=== PATIENT | female | born 1930 | race Caucasian/White ===

== ENCOUNTER 2016-09-29 12:01 | Inpatient (IN) | payer OTHER ==
[2016-09-29] VITALS (11 sets, daily range): BP systolic 111–164; BP diastolic 62–101
[~2016-09-29] VITALS: Ht 157.5 cm; Wt 70.8 kg
--- NOTE | 2016-09-29 11:50 | NUR ---
RECEIVED PT BIB EMS PLACED ON CARESCAPE ON A/C 12 VT 450 PEE5 FIO2 30 ALARMS ARE ON AND FUNCTIONAL BMV HOB PTS TRACH PORTEX 7 IS SECURE PT IN HF QUIET BS CONNER NIGHT CLEANER OBTAINED LG CREAMY VENT PLUGGED INTO RED OUTLET BEDSIDE
--- NOTE | 2016-09-29 12:01 | NUR ---
Patient was BIBA and taken to bed 03 via gurney per EMS.
[2016-09-29] MEDS ORDERED: IPRATROPIUM 0.02% 0.5 MG/2.5 ML NEBU INH ONE (12:10)
[2016-09-29] MEDS ORDERED: ALBUTEROL 0.083% 2.5 MG/3 ML NEBU INH ONE (12:10)
--- NOTE | 2016-09-29 12:10 | NUR ---
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 ER MD MADE AWARE OF PT STATUS.
[2016-09-29] MEDS ORDERED: NACL 0.9% 1,000 ML IV SCH (12:11)
--- NOTE | 2016-09-29 12:14 | NUR ---
Dr. Painter evaluating patient at bedside.
[2016-09-29 12:16] LABS: BLOOD GAS BASE EXCESS 3.2 mmol/L (-2.0-2.0); BLOOD GAS HCO3 26.7 mmol/L; BLOOD GAS PCO2 36.2 mmHg (20-50); BLOOD GAS PH 7.486 (7.35-7.45); BLOOD GAS PO2 128.1 mmHg
[2016-09-29 12:17] LABS: BLOOD GAS O2 SAT% 98.3 % (92.0-98.5)
[2016-09-29] MEDS ORDERED: AMLO-27 PO (12:17)
[2016-09-29] MEDS ORDERED: SYN.075 GT (12:17)
[2016-09-29] MEDS ORDERED: AMIO100T3 GT (12:17)
[2016-09-29] MEDS ORDERED: CAR30 GT (12:17)
[2016-09-29] MEDS ORDERED: ATOR20TA40 GT (12:17)
[2016-09-29] MEDS ORDERED: METO25TA3 GT (12:17)
[2016-09-29] MEDS ORDERED: LOV30I SC (12:17)
[2016-09-29] MEDS ORDERED: NITR0.4S14 TD (12:17)
--- NOTE | 2016-09-29 12:30 | NUR ---
XRAY AT BEDSIDE.
[2016-09-29 12:59] LABS: HEMATOCRIT 26.5 % (36-48); HEMOGLOBIN 8.5 g/dL (12.0-16.0); MEAN CORPUSCULAR HEMOGLOBIN 28 pg (27-31); MEAN CORPUSCULAR HGB CONC 32 g/dL (33-37); MEAN CORPUSCULAR VOLUME 87 fL (80-94); PLATELET COUNT (AUTO) 247 K/uL (140-450); RED BLOOD CELL COUNT(AUTO) 3.05 MIL/uL (4.20-5.40); RED CELL DISTRIBUTION WIDTH 16.1 % (11.6-13.7); WHITE BLOOD COUNT (AUTO) 9.9 K/uL (4.8-10.8)
--- NOTE | 2016-09-29 13:09 | NUR ---
INDWELLING CATH PLACED BY DILAN WINTERS WITH MARIO IGLESIAS'S ASSISTANCE
[2016-09-29 13:11] LABS: AMYLASE 55 U/L (25-115); ANION GAP 13.1 (8-16); CALCIUM 8.7 mg/dL (8.5-10.1); CHLORIDE 94 mmol/L (98-107); CREATININE 0.7 mg/dL (0.6-1.3); GLUCOSE 122 mg/dL (74-106); LIPASE 218 U/L (73-393); POTASSIUM 4.1 mmol/L (3.5-5.1); SODIUM SERUM 132 mmol/L (136-145); UREA NITROGEN, BLOOD 27 mg/dL (7-18)
[2016-09-29 13:14] LABS: ALANINE AMINOTRANSFERASE 20 U/L (12-78); ALBUMIN 2.5 g/dL (3.4-5.0); ALKALINE PHOSPHATASE 161 U/L (46-116); ASPARTATE AMINOTRANSFERASE 29 U/L (15-37); TOTAL BILIRUBIN 0.3 mg/dL (0.0-1.0)
[2016-09-29 13:15] LABS: INR 1.1 (0.8-1.2); PARTIAL THROMBOPLASTIN TIME 32.3 secs (22-35.6); PROTHROMBIN TIME 10.8 secs (10.8-13.4)
[2016-09-29 13:22] LABS: BAND % (MANUAL) 2 % (0-8); EOSINOPHILS % (MANUAL) 3 % (0-4); LYMPHOCYTES % (MANUAL) 18 % (20-46); MONOCYTES % (MANUAL) 5 % (5-12)
[2016-09-29 13:24] LABS: BASOPHILS % (MANUAL) 1 % (0-2); NEUTROPHILS % (MANUAL) 71 (43-65); PLATELET ESTIMATE ADEQUATE
--- NOTE | 2016-09-29 13:50 | NUR ---
SUCTIONED PATIENT WITH SMALL AMT.THICK WHITE SECRETION
[2016-09-29] MEDS ORDERED: ACETAMINOPHEN 325 MG TAB PO PRN (14:00)
[2016-09-29] MEDS ORDERED: ONDANSETRON 4 MG/2 ML VIAL IM/IVP PRN (14:00)
--- NOTE | 2016-09-29 14:00 | NUR ---
AT BEDSIDE TO SEE PT. WILL F/U WITH ORDERS. Addendum: 09/29/16 at 1742 by JulioC ésar Diamond RN DR FRAUSTO AT 1600
--- NOTE | 2016-09-29 14:21 | NUR ---
VENT CHECK BS RHONCI I\L LAVAGE AND SX MOD CREAMY DECREASE FIO2 TO 28
--- NOTE | 2016-09-29 14:45 | NUR ---
Patient will be admitted to care of JANAK. Admited to ICU. Will go to room 7. Belongings list completed. Report to DILAN BRIONES.
--- NOTE | 2016-09-29 15:00 | NUR ---
PT BROUGHT IT BY ER NURSE, EMT, AND RT. ALERT AND ORIENTED X 0. PT ALERT AND ORIENTED X 0. OPENS EYES TO PAIN. WITHDRAW FROM PAIN. UNABLE TO FOLLOW COMMANDS. TRACH TO VENT. FIO2 28%, 1C 12, TV 450, PEEP 5. R HAND 22 GAUGE NOTED. INTACT AND PATENT. SR ON MONITOR. LIMITED MOVEMENT OF BUE AND BLE. SKIN INTACT. G TUBE NOTED. RESIDUAL 40 CC MURKY BROWN PULLED OUT. DUKE CATHETER IN PLACE. DRAINING CLEAR YELLOW URINE. SAFETY AND ASPIRATION PRECAUTION MAINTAINED. WILL CONTINUE TO MONITOR
[2016-09-29 15:36] LABS: CHOL/HDL RATIO 2.3 (1-4.5); FREE T4 (FREE THYROXINE) 2.11 ng/dL (0.76-1.46); PHOSPHORUS 3.7 mg/dL (2.5-4.9); THYROID STIMULATING HORMONE 0.42 uIU/mL (0.34-3.76)
[2016-09-29] MEDS: NACL 0.9% 1,000 ML IV SCH (16:00)
[2016-09-29] MEDS ORDERED: POLYVINYL ALCOHOL 1.4% OP 15 ML SOL OP PRN (16:45)
[2016-09-29] MEDS ORDERED: NITROGLYCERIN 0.4 MG TAB SL PRN (16:45)
[2016-09-29] MEDS: CARBIDOPA/LEVODOPA 25/100 MG 1 TAB PO SCH (17:00)
[2016-09-29] MEDS ORDERED: AMIODARONE 200 MG TAB GT SCH (17:00)
--- NOTE | 2016-09-29 17:15 | NUR ---
DR. MARTINEZ AT BEDSIDE TO SEE PT. WILL F/U WITH ORDER
[2016-09-29] MEDS ORDERED: VANCOMYCIN PER PHARMACY MC PRN (17:35)
[2016-09-29] MEDS ORDERED: VANCOMYCIN 1GM/DEXT 5% PREMIX 200 ML IV ONE (18:15)
[2016-09-29] MEDS ORDERED: CLINDAMYCIN 600 MG/4 ML VIAL ONE ×2 (18:26→23:51)
[2016-09-29] MEDS: AMIODARONE 200 MG TAB GT SCH (18:26)
[2016-09-29] MEDS ORDERED: VANCOMYCIN 1,000 MG VIAL ONE (18:27)
[2016-09-29 18:40] LABS: APPEARANCE,URINE HAZY (CLEAR); BILIRUBIN,URINE NEGATIVE (NEGATIVE); BLOOD, URINE NEGATIVE (NEGATIVE); COLOR,URINE STRAW (YELLOW); LEUKOCYTE ESTERASE ,URINE 2+ (NEGATIVE); NITRITE, URINE NEGATIVE (NEGATIVE); PROTEIN,URINE NEGATIVE (NEGATIVE); UGLUCOSE NEGATIVE (NEGATIVE); UROBILINOGEN,URINE 0.2 EU/dL (0.2 - 1)
[2016-09-29] MEDS: CLINDAMYCIN 600 MG in DEXTROSE 5% 50 ML IV SCH (18:41)
[2016-09-29 19:14] LABS: BACTERIA,URINE FEW /HPF (None Seen); RBC,URINE NONE SEEN /HPF (0-5)
[2016-09-29 19:15] LABS: SQUAMOUS EPITHELIAL CELL,UR None Seen /LPF (0-3 (FEW))
--- NOTE | 2016-09-29 19:22 | NUR ---
PT RECEIVED FROM IMELDA ON NOTED VENT SETTINGS. PT QUIET, HAS A #7 [address]. BREATH SOUNDS DIMINISHED RHONCHI, PT LAVAGED AND SUCTIONED MOD AMT THICK CREAMY SECRETIONS. NO ADVERSE EFFECTS NOTED. VENT ALARMS ON AND AUDIBLE. VENT PLUGGED INTO RED ELECTRICAL OUTLET. AMBU BAG ON SIDE OF VENT.
[2016-09-29] MEDS ORDERED: ALBUTEROL SULFATE/IPRATROPIU 3 ML SOL IH PRN (19:25)
--- NOTE | 2016-09-29 19:30 | NUR ---
RECEIVED REPORT FROM SORAIDA KONG. PATIENT IS RESTING IN BED. PATIENT OPENS EYES SPONTANEOUSLY, BUT DOES NOT FOLLOW COMMANDS. PATIENT IS BEDBOUND. NO S/S OF RESPIRATORY DISTRESS OR SOB NOTED. PATIENT IS TRACH TO VENT WITH SETTINGS OF FIO2 28%, TIDAL VOLUME 450, A/C 12, PEEP 5. BREATH SOUNDS ARE DIMINISHED AND BOWEL SOUNDS ARE ACTIVE. THERE IS A G-TUBE IN PLACE AND CLAMPED. PATIENT IS NPO. THERE IS A #22 IN THE RIGHT HAND RECEIVING NORMAL SALINE AT 60 ML/HR. SITE IS DRY, INTACT, AND ASYMPTOMATIC. THERE IS A DUKE CATHETER IN PLACE DRAINING TO GRAVITY WITH MODERATE AMOUNT OF CLEAR YELLOW URINE NOTED. VAP ORAL CARE RENDERED. HOB AT 30 DEGREES WITH BED IN LOW POSITION. WILL CONTINUE TO MONITOR PATIENT.
--- NOTE | 2016-09-29 20:39 | NUR ---
AT BEDSIDE TO VISIT PATIENT.
--- NOTE | 2016-09-29 20:40 | NUR ---
PROSTHETIC LAB TECHNICIAN AT BEDSIDE FOR SCHEDULED PROCEDURE.
--- NOTE | 2016-09-29 21:31 | NUR ---
VENT CHECKED. PT QUIET, NO DISTRESS NOTED.
[2016-09-29] MEDS: FERROUS SULFATE 300 MG/5 ML UDC GT SCH (21:32)
[2016-09-29] MEDS: DOCUSATE 100 MG/10 ML UDC GT SCH (21:32)
[2016-09-29] MEDS: ATORVASTATIN 20 MG TAB GT SCH (21:33)
[2016-09-29] MEDS: MEMANTINE 10 MG TAB GT SCH (21:33)
[2016-09-29] MEDS: METOPROLOL 25 MG TAB GT SCH (21:33)
--- NOTE | 2016-09-29 21:47 | NUR ---
PATIENT TOLERATED SCHEDULED MEDICATIONS. NO SIGNS OF RESPIRATORY DISTRESS OR DISCOMFORT NOTED. PATIENT REPOSITIONED FOR COMFORT. VAP ORAL CARE PROVIDED. HOB AT 30 DEGREES WITH BED IN LOW POSITION. LEFT UNIT. WILL CONTINUE TO MONITOR PATIENT.
--- NOTE | 2016-09-29 23:19 | NUR ---
VENT CHECKED. PT GIVEN HHN TX INLINE ORDERED. BREATH SOUNDS RHONCHI, PT LAVAGED AND SUCTIONED MOD AMT CREAMY SECRETIONS. NO ADVERSE EFFECTS NOTED.
[2016-09-29] MEDS: ALBUTEROL SULFATE/IPRATROPIU 3 ML SOL IH SCH (23:24)
[2016-09-30] VITALS (24 sets, daily range): BP systolic 109–152; BP diastolic 51–94
--- NOTE | 2016-09-30 | NUR ---
PATIENT RESTING IN BED. NO SIGNS OF RESPIRATORY DISTRESS OR SOB NOTED. HOB AT 30 DEGREES WITH BED IN LOW POSITION. CONTINUE TO MONITOR PATIENT.
[2016-09-30] MEDS: CLINDAMYCIN 600 MG in DEXTROSE 5% 50 ML IV SCH ×5 (00:01→23:45)
--- NOTE | 2016-09-30 01:32 | NUR ---
VENT CHECKED. PT LAVAGED AND SUCTIONED SMALL AMT CREAMY SECRETIONS. NO ADVERSE EFFECTS NOTED.
--- NOTE | 2016-09-30 02:07 | NUR ---
PATIENT REPOSITIONED FOR COMFORT. NO SIGNS OF RESPIRATORY DISTRESS NOTED. HOB AT 30 DEGREES WITH BED IN LOW POSITION. CONTINUE TO MONITOR PATIENT.
--- NOTE | 2016-09-30 03:22 | NUR ---
VENT CHECKED. HME AND TRACH GAUZE CHANGED. PT GIVEN HHN TX VIA INLINE, LAVAGED AND SUCTIONED SMALL AMT CREAMY SECRETIONS. NO ADVERSE EFFECTS NOTED.
[2016-09-30] MEDS: ALBUTEROL SULFATE/IPRATROPIU 3 ML SOL IH SCH ×6 (03:27→23:04)
--- NOTE | 2016-09-30 03:28 | NUR ---
RESPIRATORY THERAPIST AT BEDSIDE FOR SCHEDULED BREATHING TREATMENT
--- NOTE | 2016-09-30 04:45 | NUR ---
MORNING AND CATHETER CARE PROVIDED. BED BATH GIVEN. CHANGED LINENS AND GOWN. REPOSITIONED TO OFFLOAD PRESSURE AREAS. VAP ORAL CARE RENDERED. NO SIGNS OF RESPIRATORY DISTRESS NOTED. HOB AT 30 DEGREES WITH BED IN LOW POSITION. WILL CONTINUE TO MONITOR PATIENT.
--- NOTE | 2016-09-30 05:31 | NUR ---
VENT CHECKED. PT QUIET, NO DISTRESS/SOB NOTED AT THIS TIME.
[2016-09-30] MEDS: LANSOPRAZOLE 30 MG CAPDR GT SCH (05:38)
[2016-09-30] MEDS: LEVOTHYROXINE 0.075 MG TAB GT SCH (05:38)
[2016-09-30 06:03] LABS: ANION GAP 10.9 (8-16); CALCIUM 8.4 mg/dL (8.5-10.1); CARBON DIOXIDE 28.8 mmol/L (21-32); CHLORIDE 98 mmol/L (98-107); CREATININE 0.7 mg/dL (0.6-1.3); GLUCOSE 116 mg/dL (74-106); POTASSIUM 3.7 mmol/L (3.5-5.1); SODIUM SERUM 134 mmol/L (136-145); UREA NITROGEN, BLOOD 17 mg/dL (7-18)
[2016-09-30 06:07] LABS: MAGNESIUM 1.9 mg/dL (1.8-2.4); PHOSPHORUS 3.2 mg/dL (2.5-4.9)
[2016-09-30 06:10] LABS: BASOPHILS % (AUTO) 0.4 % (0.0-2.0); EOSINOPHILS # (AUTO) 0.3 K/uL (0-0.4); HEMATOCRIT 29.4 % (36-48); HEMOGLOBIN 9.4 g/dL (12.0-16.0); LYMPHOCYTES % (AUTO) 10.8 % (20.5-51.1); MEAN CORPUSCULAR HEMOGLOBIN 28 pg (27-31); MEAN CORPUSCULAR HGB CONC 32 g/dL (33-37); MEAN CORPUSCULAR VOLUME 87 fL (80-94); MONOCYTES # (AUTO) 0.5 K/uL (0.8-1.0); MONOCYTES % (AUTO) 5.1 % (1.7-9.3); NEUTROPHILS # (AUTO) 7.8 K/uL (1.8-7.7); NEUTROPHILS % (AUTO) 80.7 % (42.2-75.2); PLATELET COUNT (AUTO) 234 K/uL (140-450); RED BLOOD CELL COUNT(AUTO) 3.38 MIL/uL (4.20-5.40); RED CELL DISTRIBUTION WIDTH 15.7 % (11.6-13.7); WHITE BLOOD COUNT (AUTO) 9.6 K/uL (4.8-10.8)
--- NOTE | 2016-09-30 06:30 | NUR ---
RECEIVED PT ON CARESCAPE ON A/C 12 VT 450 PEEP5 FIO2 28 ALARMS ARE ON AND FUNCTIONAL BMV HOB PTS TRACH PORTEX 7 IS SECURE PT IN HF QUIET BS RHONCI I\L LAVAGE AND SX LG CREAMY HHN GIVEN I\L WITH 3 MG DUONEB VENT PLUGGED INTO RED OUTLET
--- NOTE | 2016-09-30 06:32 | NUR ---
RESPIRATORY THERAPIST AT BEDSIDE.
[2016-09-30] MEDS: NACL 0.9% 1,000 ML IV SCH ×2 (06:37→15:01)
--- NOTE | 2016-09-30 07:12 | NUR ---
PATIENT IN STABLE CONDITION. ALL PATIENT'S NEEDS ATTENDED TO DURING SHIFT. ENDORSED CONTINUITY OF CARE TO LEI KONG.
--- NOTE | 2016-09-30 07:30 | NUR ---
RECEIVED REPORT FROM UMAIR KONG. PATIENT OPENS EYES SPONTANEOUSLY DOES NOT FOLLOW COMMANDS.BEDSIDE MONITOR SHOWS A-FIB. PATIENT IS BEDBOUND. PATIENT IS TRACH TO VENT WITH SETTINGS OF FIO2 28%, TIDAL VOLUME 450, A/C 12, PEEP 5. NO S/S OF RESPIRATORY DISTRESS OR SOB NOTED.BREATH SOUNDS ARE DIMINISHED . G-TUBE IN PLACE AND CLAMPED. IV TO RIGHT HAND # 22 RECEIVING NORMAL SALINE AT 60 ML/HR. SITE IS DRY, INTACT, AND ASYMPTOMATIC. DUKE CATHETER IN PLACE DRAINING TO GRAVITY WITH MODERATE AMOUNT OF CLEAR YELLOW URINE NOTED. VAP ORAL CARE GIVEN. HOB AT 30 DEGREES WITH BED IN LOW POSITION. WILL CONTINUE TO MONITOR PATIENT.
[2016-09-30] MEDS: MEMANTINE 10 MG TAB GT SCH ×2 (08:07→20:50)
[2016-09-30] MEDS: SODIUM BICARBONATE 650 MG TAB GT SCH (08:07)
[2016-09-30] MEDS: LACTOBACILLUS RHAMNOSUS GG 1 EACH CAP GT SCH (08:07)
[2016-09-30] MEDS: FERROUS SULFATE 300 MG/5 ML UDC GT SCH ×2 (08:07→20:49)
[2016-09-30] MEDS: DOCUSATE 100 MG/10 ML UDC GT SCH ×2 (08:07→20:49)
[2016-09-30] MEDS: DILTIAZEM 60 MG TAB GT SCH (08:08)
[2016-09-30] MEDS: METOPROLOL 25 MG TAB GT SCH ×2 (08:09→20:50)
[2016-09-30] MEDS: CARBIDOPA/LEVODOPA 25/100 MG 1 TAB PO SCH ×3 (08:10→17:01)
[2016-09-30] MEDS: amLODIPine 5 MG TAB GT SCH (08:10)
--- NOTE | 2016-09-30 08:46 | NUR ---
VENT CHECK BS RHONCI I\L LAVAGE AND SX LG CREAMY
--- NOTE | 2016-09-30 08:50 | NUR ---
IN TO ASSESS PT, UPDATED PT'S CONDITION. HAD COMMUNICATION WITH PT'S REGARDING PT'S CONDITION.
[2016-09-30] MEDS ORDERED: AMIODARONE 200 MG TAB GT SCH (09:00)
[2016-09-30] MEDS ORDERED: PNEUMOCOCCAL VACCINE 23 MCG/0.5 ML VIAL IMVAC SCH (10:05)
--- NOTE | 2016-09-30 10:15 | NUR ---
PT ABDOMEN SOFT, NO DISTENTION.G-TUBE PLACEMENT CHECKED AND WITHOUT RESIDUAL AT THIS TIME. STARTED PT ON FIBERSOURCE @ 30ML/HR WITH WATER FLUSH [id number] ORDERED. WILL CONTINUE TO MONITOR.
[2016-09-30] MEDS: VITAMIN A/VITAMIN D OINT 113 GM TUBE TP SCH (10:23)
[2016-09-30] MEDS ORDERED: FUROSEMIDE 20 MG/2 ML VIAL IVP SCH (10:30)
[2016-09-30] MEDS ORDERED: LISINOPRIL 5 MG TAB PO SCH (10:30)
--- NOTE | 2016-09-30 12:08 | NUR ---
VENT CHECK BS RHONCI I\L SX AND LAVAGE MOD CREAMY
--- NOTE | 2016-09-30 12:15 | NUR ---
IN TO ASSESS PT, UPDATED PT'S CONDITION, WILL FOLLOW UP.
[2016-09-30] MEDS ORDERED: PROBIOTIC SCREEN 1 EA MISC MC PRN (13:05)
--- NOTE | 2016-09-30 14:25 | NUR ---
TURNED AND REPOSITIONED PT, SUCTIONED PT WITH SMALLL AMOUNT OF CLEAR SECRETION. PT'S AT BEDSIDE.
--- NOTE | 2016-09-30 15:13 | NUR ---
VENT CHECK BS RHONCI I\L LAVAGE AND SX MOD CREAMY TRACH CARE I\L HHN GIVEN WITH 3 MG DUONEB
--- NOTE | 2016-09-30 16:49 | NUR ---
BEDSIDE MONITOR SHOWS A-FIB WITH INTERMITTENT SINUS RHYTHM WITH FIRST DEGREE BLOCK. PT OPENS EYES OCCASIONALLY, UNABLE TO FOLLOW COMMANDS, TRACH TO VENT, NO S/S OF RESPIRATORY DISTRESS NOTED. WILL CONTINUE TO MONITOR.
--- NOTE | 2016-09-30 16:55 | NUR ---
VENT CHECK BS RHONCI I\L LAVAGE AND SX SM YELLOW
[2016-09-30] MEDS: AMIODARONE 200 MG TAB GT SCH (17:02)
--- NOTE | 2016-09-30 18:20 | NUR ---
PT UNABLE TO FOLLOW COMMANDS. TRACH TO VENT.TURNED AND REPOSITIONED PT, NO S/S OF RESPIRATORY DISTRESS NOTED.
[2016-09-30] MEDS: VANCOMYCIN 750 MG in DEXTROSE 5% 250 ML IV SCH (18:28)
--- NOTE | 2016-09-30 19:35 | NUR ---
RECEIVED REPORT FROM LEI KONG. PATIENT IS RESTING IN BED. PATIENT OPENS EYES SPONTANEOUSLY, LOCALIZES TO PAIN, AND IS UNABLE TO FOLLOW SIMPLE COMMANDS. PATIENT IS TRACH TO VENT WITH SETTINGS OF FIO2 28%, TIDAL VOLUME 450, A/C 12, AND PEEP OF 5. BREATH SOUNDS ARE DIMINISHED ON AUSCULTATION. BOWEL SOUNDS ARE PRESENT. VITAL SIGNS ARE WNL AND PATIENT IS AFEBRILE. 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 PATIENT TOLERATING FEEDING FAIRLY WITH 30 ML OF RESIDUAL NOTED. THERE IS A #22 IN THE RIGHT HAND RECEIVING NORMAL SALINE AT 40 ML/HR. THERE IS A DUKE CATHETER IN PLACE DRAINING TO GRAVITY WITH MODERATE AMOUNT OF CLEAR YELLOW URINE NOTED. VAP ORAL CARE RENDERED. NO SIGNS OF RESPIRATORY DISTRESS NOTED. HOB AT 30 DEGREES WITH BED IN LOW POSITION. WILL CONTINUE TO MONITOR PATIENT.
--- NOTE | 2016-09-30 19:45 | NUR ---
RESPIRATORY THERAPIST AT BEDSIDE ADMINISTERING SCHEDULED BREATHING TREATMENT.
[2016-09-30] MEDS: ATORVASTATIN 20 MG TAB GT SCH (20:49)
--- NOTE | 2016-09-30 21:03 | NUR ---
PATIENT TOLERATED DUE MEDICATIONS. REPOSITIONED PATIENT TO OFFLOAD PRESSURE AREAS. NO SIGNS OF RESPIRATORY DISTRESS NOTED. HOB AT 30 DEGREES WITH BED IN LOW POSITION. WILL CONTINUE TO MONITOR PATIENT.
--- NOTE | 2016-09-30 22:21 | NUR ---
PATIENT'S AND DAUGHTER AT BEDSIDE.
--- NOTE | 2016-09-30 22:45 | NUR ---
PATIENT'S AND DAUGHTER OFF UNIT. PATIENT'S CONDITION REMAINS UNCHANGED. CONTINUE TO MONITOR.
--- NOTE | 2016-09-30 23:50 | NUR ---
VAP ORAL CARE RENDERED. NO SIGNS OF RESPIRATORY DISTRESS NOTED. CONTINUE TO MONITOR PATIENT.
[2016-10-01] VITALS (20 sets, daily range): BP systolic 113–152; BP diastolic 39–120
--- NOTE | 2016-10-01 00:30 | NUR ---
PATIENT REPOSITIONED FOR COMFORT. NO SIGNS OF RESPIRATORY DISTRESS NOTED. HOB AT 30 DEGREES WITH BED IN LOW POSITION. WILL CONTINUE TO MONITOR PATIENT.
--- NOTE | 2016-10-01 02:09 | NUR ---
SUCTIONED SMALL AMOUNT OF CREAMY SPUTUM. NO SIGNS OF SOB OR DISTRESS NOTED. HOB AT 30 DEGREES WITH BED IN LOW POSITION. CONTINUE TO MONITOR PATIENT.
[2016-10-01] MEDS: ALBUTEROL SULFATE/IPRATROPIU 3 ML SOL IH SCH ×6 (02:53→23:00)
--- NOTE | 2016-10-01 04:45 | NUR ---
MORNING AND CATHETER CARE RENDERED. BED BATH PROVIDED. CHANGED LINENS AND GOWN. PATIENT REPOSITIONED TO OFFLOAD PRESSURE AREAS. VAP ORAL CARE GIVEN. NO SIGNS OF RESPIRATORY DISTRESS. HOB AT 30 DEGREES WITH BED IN LOW POSITION. WILL CONTINUE TO MONITOR PATIENT.
[2016-10-01 04:52] LABS: HEMATOCRIT 26.2 % (36-48); HEMOGLOBIN 8.6 g/dL (12.0-16.0); MEAN CORPUSCULAR HEMOGLOBIN 29 pg (27-31); MEAN CORPUSCULAR HGB CONC 33 g/dL (33-37); MEAN CORPUSCULAR VOLUME 87 fL (80-94); PLATELET COUNT (AUTO) 238 K/uL (140-450); RED CELL DISTRIBUTION WIDTH 15.9 % (11.6-13.7); WHITE BLOOD COUNT (AUTO) 10.6 K/uL (4.8-10.8)
[2016-10-01 05:04] LABS: ANION GAP 12.8 (8-16); BAND % (MANUAL) 1 % (0-8); CALCIUM 8.1 mg/dL (8.5-10.1); CARBON DIOXIDE 28.7 mmol/L (21-32); CHLORIDE 96 mmol/L (98-107); CREATININE 0.8 mg/dL (0.6-1.3); EOSINOPHILS % (MANUAL) 4 % (0-4); GLUCOSE 138 mg/dL (74-106); LYMPHOCYTES % (MANUAL) 16 % (20-46); MONOCYTES % (MANUAL) 6 % (5-12); NEUTROPHILS % (MANUAL) 73 (43-65); POTASSIUM 4.5 mmol/L (3.5-5.1); SODIUM SERUM 133 mmol/L (136-145); UREA NITROGEN, BLOOD 15 mg/dL (7-18)
[2016-10-01 05:08] LABS: MAGNESIUM 1.8 mg/dL (1.8-2.4); PHOSPHORUS 3.6 mg/dL (2.5-4.9)
[2016-10-01] MEDS: CLINDAMYCIN 600 MG in DEXTROSE 5% 50 ML IV SCH ×2 (05:53→11:02)
[2016-10-01] MEDS: LANSOPRAZOLE 30 MG CAPDR GT SCH (05:53)
[2016-10-01] MEDS: LEVOTHYROXINE 0.075 MG TAB GT SCH (05:53)
--- NOTE | 2016-10-01 06:46 | NUR ---
REC'D PT ON CARESCAPE VENT SETTINGS AC12 VT 450 PEEP 5 FIO2 28% ALARMS ON AND FUNCTIONING PROPERLY, AMBU BAG IS AT SIDE OF VENTILATOR AND VENTILATOR IS PLUGGED INTO RED OUTLET, I\L TX GIVEN WITH DUONEB 3ML WITH NO ADVERSE REACTION POST TX, B\S ARE RHONCHI BILATERALLY, SXN PT SMALL AMT OF WHITE THIN SECRETIONS, PT IS TRACH WITH PORTEX 7 AND SKIN INTEGRITY IS INTACT PT IS RESTING WITH NO SIGNS OF DISTRESS NOTED AT THIS TIME
--- NOTE | 2016-10-01 07:10 | NUR ---
NO CHANGES IN PATIENT'S CONDITION. ALL PATIENT'S NEEDS ATTENDED TO DURING SHIFT. ENDORSED CONTINUITY OF CARE TO LEI KONG.
--- NOTE | 2016-10-01 07:30 | NUR ---
RECEIVED REPORT FROM UMAIR KONG. PATIENT OPENS EYES SPONTANEOUSLY DOES NOT FOLLOW COMMANDS.BEDSIDE MONITOR SHOWS SR AT THIS TIME. PATIENT IS BEDBOUND. FULL CODE. TRACH TO VENT WITH SETTINGS OF FIO2 28%, TIDAL VOLUME 450, A/C 12, PEEP 5. NO S/S OF RESPIRATORY DISTRESS OR SOB NOTED.BREATH SOUNDS ARE DIMINISHED . G-TUBE IN PLACE RUNNING FIBERSOURCE AT 30ML/HR WITH H2O FLUSH 150ML Q4HRS. IV TO RIGHT HAND # 22 RECEIVING NORMAL SALINE AT 40 ML/HR. SITE IS DRY, INTACT, AND ASYMPTOMATIC. DUKE CATHETER IN PLACE DRAINING TO GRAVITY WITH SMALL AMOUNT OF CLEAR YELLOW URINE NOTED. VAP ORAL CARE GIVEN. POC DISCUSSED WITH PT, PT UNABLE TO COMPREHEND. HOB AT 30 DEGREES WITH BED IN LOW POSITION. WILL CONTINUE TO MONITOR PATIENT.
[2016-10-01] MEDS: DOCUSATE 100 MG/10 ML UDC GT SCH ×2 (08:08→21:04)
[2016-10-01] MEDS: MEMANTINE 10 MG TAB GT SCH ×2 (08:08→21:04)
[2016-10-01] MEDS: FERROUS SULFATE 300 MG/5 ML UDC GT SCH ×2 (08:08→21:04)
[2016-10-01] MEDS: SODIUM BICARBONATE 650 MG TAB GT SCH (08:08)
[2016-10-01] MEDS: LACTOBACILLUS RHAMNOSUS GG 1 EACH CAP GT SCH (08:08)
[2016-10-01] MEDS: amLODIPine 5 MG TAB GT SCH (08:09)
[2016-10-01] MEDS: DILTIAZEM 60 MG TAB GT SCH (08:10)
[2016-10-01] MEDS: CARBIDOPA/LEVODOPA 25/100 MG 1 TAB PO SCH ×3 (08:10→16:44)
[2016-10-01] MEDS: METOPROLOL 25 MG TAB GT SCH ×2 (08:11→21:04)
[2016-10-01] MEDS: LISINOPRIL 5 MG TAB PO SCH (08:12)
[2016-10-01] MEDS: VITAMIN A/VITAMIN D OINT 113 GM TUBE TP SCH (08:41)
--- NOTE | 2016-10-01 08:45 | NUR ---
VENT CHECK, NO SNX REQUIRED AT THIS TIME, AIRWAY IS PATENT AND PT IS RESTING
[2016-10-01] MEDS ORDERED: FUROSEMIDE 20 MG/2 ML VIAL IVP SCH ×2 (09:00→09:44)
[2016-10-01 09:22] LABS: T4 (THYROXINE) 9.5 ug/dL (4.5-12.0)
[2016-10-01] MEDS ORDERED: VANCOMYCIN PER PHARMACY MC PRN (09:30)
--- NOTE | 2016-10-01 09:30 | NUR ---
IN TO ASSESS PT, UPDATED PT'S CONDITION. PER PT IS OK TO TRANSFER. PROJECT CONTROLLER AND CHARGE NURSE WERE NOTIFIED PT IS TELE STATUS.
--- NOTE | 2016-10-01 10:56 | NUR ---
PT HAS BEEN SCREENED AND CATEGORIZED HIGH NUTRITION RISK. PATIENT WILL BE SEEN WITHIN 1-2 DAYS OF ADMISSION. 09/30/16 - 10/01/16 TAMEKA OWEN MBA, RD
--- NOTE | 2016-10-01 11:02 | NUR ---
VENT CHECK, SXN PT SMALL AMT OF WHITE THIN SECRETIONS, B\S ARE RHONCHI I\L TX GIVEN WITH DUONEB 3ML WITH NO ADVERSE REACTION POST TX PT IS RESTING WITH NO SIGNS OF DISTRESS NOTED AT THIS TIME
--- NOTE | 2016-10-01 12:20 | NUR ---
DR KIM(RESIDENT) WAS NOTIFIED REGARDING PATIENTS POSITIVE BLOOD CULTURE FOR GRAM POSITIVE COCCI IN CLUSTERS AND POSITIVE URINE CULTURE AND TRACHEA CULTURE FOR PROTEUS MIRABILIS MODERATE-MDRO. DR KIM STATED HE WOULD LOOK INTO IT.
--- NOTE | 2016-10-01 13:11 | NUR ---
VENT CHECK, NO SXN REQUIRED AT THIS TIME, AIRWAY IS PATENT AND PT IS RESTING
--- NOTE | 2016-10-01 14:11 | NUR ---
10/01/16 RD INITIAL ASSESSMENT COMPLETED. PLEASE REFER TO NUTRITIN ASSESSMENT UNDER CARE ACTIVITY FOR ESTIMATED NUTRITIONAL NEEDS. RD RECOMMENDATIONS: 1- RECOMMEND INCREASE TF RATE BY 10MLS/HR Q8HRS TOLERATED TO REACH GOAL RATE OF FIBERSOURCE HN @60MLS/HR SUFFICIENT TO MEET >75% OF DAILY ESTIMATED NUTRITIONAL NEEDS. 2- F/U 2-3 DAYS; HIGH RISK. TAMEKA OWEN MBA, RD
--- NOTE | 2016-10-01 15:02 | NUR ---
VENT CHECK, I\L TX GIVEN WITH DUONEB 3ML WITH NO ADVERSE REACTION POST TX B\S ARE RHONCHI SXN PT MODERATE AMT OF THIN YELLOW SECRETIONS, TRACH CARE DONE: CHANGED TRACH TIE AND GAUZE AND INNER CANNULA AND AT BEDSIDE
--- NOTE | 2016-10-01 15:10 | NUR ---
RT AT BEDSIDE.
[2016-10-01] MEDS: AMIODARONE 200 MG TAB GT SCH (16:43)
--- NOTE | 2016-10-01 16:57 | NUR ---
VENT CHECK, NO SXN REQUIRED AT THIS TIME, AIRWAY IS PATENT PT IS RESTING
--- NOTE | 2016-10-01 17:49 | NUR ---
G-TUBE DRESSING CHANGED.
[2016-10-01] MEDS: VANCOMYCIN 750 MG in DEXTROSE 5% 250 ML IV SCH (18:13)
--- NOTE | 2016-10-01 18:20 | NUR ---
TURNED AND REPOSITIONED PT. NO S/S OF RESPIRATORY DISTRESS NOTED. SUCTIONED PT WITH SMALL AMOUNT OF CLEAR SECRETION, WILL CONTINUE TO MONITOR.
--- NOTE | 2016-10-01 19:30 | NUR ---
RECEIVED REPORT FROM DILAN ODOM. AT BEDSIDE, PATIENT IS AOX1, APHASIC, NOT ABLE TO FOLLOW COMMANDS. TRACH TO VENT WITH SETTINGS OF FIO2 28%, TIDAL VOLUME 450, A/C 12, PEEP 5. NO S/S OF SOB/ DISTRESS NOTED, DIMINISHED LUNG SOUNDS, SR ON FISHER PURSE SEINE WITH REGULAR HR, ABDOMEN SOFT WITH ACTIVE BOWEL SOUNDS, G-TUBE IN PLACE RUNNING FIBERSOURCE AT 60ML/HR WITH H2O FLUSH 150ML Q4HRS, TOLERATED WELL, 0ML RESIDUAL. IV TO RIGHT HAND 22GA SL, PATENT AND INTACT, IV SITE TO LEFT HAND 22GA RUNNING NS AT 20 ML/HR. DUKE CATHETER IN PLACE DRAINING TO GRAVITY WITH CLEAR YELLOW URINE NOTED. BEDBOUND, CONTRACTED TO ALL EXTREMITIES. AFEBRILE, SKIN IS INTACT, WARM AND DRY TO TOUCH. VSS, FLACC 0. ORAL CARE PROVIDED, POSITION CHANGED FOR OFF LOAD PRESSURE, SAFETY MEASURES IN PLACE, HOB AT 30 DEGREES, CALL LIGHT WITHIN REACH. WILL CONTINUE TO MONITOR.
--- NOTE | 2016-10-01 21:00 | NUR ---
SCHEDULED MEDICATION GIVEN, PT TOLERATED WELL.
[2016-10-01] MEDS: ATORVASTATIN 20 MG TAB GT SCH (21:04)
[2016-10-02] VITALS (18 sets, daily range): BP systolic 93–146; BP diastolic 40–89
--- NOTE | 2016-10-02 | NUR ---
NO CHANGE OF CONDITION AT THIS TIME, VSS. POSITION CHANGED FOR OFF LOAD PRESSURE.
[2016-10-02] MEDS: ALBUTEROL SULFATE/IPRATROPIU 3 ML SOL IH SCH ×6 (03:10→22:52)
--- NOTE | 2016-10-02 04:00 | NUR ---
AM CARE PROVIDED, ORAL CARE PROVIDED, PT TOLERATED WELL, POSITION CHANGED FOR OFF LOAD PRESSURE, VSS.
[2016-10-02 05:22] LABS: ANION GAP 11.5 (8-16); CALCIUM 8.2 mg/dL (8.5-10.1); CARBON DIOXIDE 30.5 mmol/L (21-32); CHLORIDE 93 mmol/L (98-107); CREATININE 0.8 mg/dL (0.6-1.3); GLUCOSE 156 mg/dL (74-106); SODIUM SERUM 131 mmol/L (136-145); UREA NITROGEN, BLOOD 16 mg/dL (7-18)
[2016-10-02] MEDS: NACL 0.9% 1,000 ML IV SCH (05:38)
[2016-10-02] MEDS: LEVOTHYROXINE 0.075 MG TAB GT SCH (06:02)
[2016-10-02] MEDS: LANSOPRAZOLE 30 MG CAPDR GT SCH (06:02)
[2016-10-02 06:21] LABS: HEMATOCRIT 26.9 % (36-48); HEMOGLOBIN 9.1 g/dL (12.0-16.0); MEAN CORPUSCULAR HEMOGLOBIN 29 pg (27-31); MEAN CORPUSCULAR HGB CONC 34 g/dL (33-37); MEAN CORPUSCULAR VOLUME 87 fL (80-94); PLATELET COUNT (AUTO) 268 K/uL (140-450); RED BLOOD CELL COUNT(AUTO) 3.09 MIL/uL (4.20-5.40); RED CELL DISTRIBUTION WIDTH 16.5 % (11.6-13.7); WHITE BLOOD COUNT (AUTO) 12.4 K/uL (4.8-10.8)
--- NOTE | 2016-10-02 06:34 | NUR ---
RECEIVED PT ON CARESCAPE ON A/C 12 VT 450 PEEP 5 FIO2 28 ALARMS ARE ON AND FUCNTIONAL BMV HOB PTS TRACH PORTEX 7 IS SECURE PT IN HF QUIET BS RHONCI I\L LAVAGE AND SX MOD CREAMY HHN GIVEN I\L WITH 3 MG DUONEB VENT PLUGGED INTO RED OUTLET NO DISTRESS
[2016-10-02 06:56] LABS: BAND % (MANUAL) 2 % (0-8); NEUTROPHILS % (MANUAL) 74 (43-65)
[2016-10-02 06:57] LABS: EOSINOPHILS % (MANUAL) 3 % (0-4); LYMPHOCYTES % (MANUAL) 14 % (20-46); MONOCYTES % (MANUAL) 7 % (5-12)
--- NOTE | 2016-10-02 07:15 | NUR ---
REPORT GIVEN TO DILAN FARNSWORTH AT BEDSIDE, PT IS IN STABLE CONDITION AT THIS TIME.
--- NOTE | 2016-10-02 07:47 | NUR ---
RECEIVE REPORT FROM DILAN HERNANDEZ. PT IS ALERT AND ORIENTED X 0. OPENS EYES TO PAIN. WITHDRAW FROM PAIN. UNABLE TO FOLLOW COMMANDS. TRACH TO VENT. FIO2 28%, AC 12, TV 450, PEEP 5. R HAND 22 GAUGE NOTED. SALINE LOCKED. LEFT HAND 20 GAUGE IV NOTED. INTACT AND PATENT. SR ON MONITOR. RIGIDNESS NOTED ON BUE AND BLE. SKIN INTACT. G TUBE NOTED. RESIDUAL [address] CC. DUKE CATHETER IN PLACE. DRAINING CLEAR YELLOW URINE. SAFETY AND ASPIRATION PRECAUTION MAINTAINED. WILL CONTINUE TO MONITOR.
[2016-10-02] MEDS: FUROSEMIDE 40 MG/4 ML VIAL IVP SCH (08:15)
--- NOTE | 2016-10-02 08:15 | NUR ---
BM NOTED. MODERATE AMOUNT OF HARD FORMED STOOL NOTED. DARK GREEN. NO ODOR NOTED. STOOL SOFTENER ADMINISTERED PER ORDER. WILL CONTINUE TO MONITOR
[2016-10-02] MEDS: FERROUS SULFATE 300 MG/5 ML UDC GT SCH ×2 (08:18→21:29)
[2016-10-02] MEDS: DOCUSATE 100 MG/10 ML UDC GT SCH ×2 (08:18→21:29)
[2016-10-02] MEDS: METOPROLOL 25 MG TAB GT SCH ×2 (08:19→21:30)
[2016-10-02] MEDS: DILTIAZEM 60 MG TAB GT SCH (08:19)
[2016-10-02] MEDS: MEMANTINE 10 MG TAB GT SCH ×2 (08:20→21:30)
[2016-10-02] MEDS: amLODIPine 5 MG TAB GT SCH (08:20)
[2016-10-02] MEDS: LACTOBACILLUS RHAMNOSUS GG 1 EACH CAP GT SCH (08:20)
[2016-10-02] MEDS: CARBIDOPA/LEVODOPA 25/100 MG 1 TAB PO SCH ×3 (08:21→16:36)
[2016-10-02] MEDS: LISINOPRIL 5 MG TAB PO SCH (08:21)
--- NOTE | 2016-10-02 08:30 | NUR ---
MEDICATION ADMINISTERED THROUGH G TUBE. PLACEMENT CHECKED. NO S/SX OF ACUTE DISTRESS NOTED. TOLERATED WELL
[2016-10-02] MEDS: VITAMIN A/VITAMIN D OINT 113 GM TUBE TP SCH (08:40)
--- NOTE | 2016-10-02 09:03 | NUR ---
VENT CHECK BS CL\DIM AIRWAY IS PATENT
--- NOTE | 2016-10-02 10:05 | NUR ---
DR. JIMENEZ AT BEDSIDE TO SEE PT. WILL F/U WITH ORDERS.
--- NOTE | 2016-10-02 10:56 | NUR ---
VENT CHECK BS RHONCI I\L LAVAGE AND SX SM CREAMY I\L HHN GIVEN WITH 3 MG DUONEB BEDSIDE
--- NOTE | 2016-10-02 11:21 | NUR ---
DR. ANN AT BEDSIDE TO SEE PT. WILL F/U WITH ORDERS
--- NOTE | 2016-10-02 12:08 | NUR ---
RECEIVED RESULTS OF KLEBSIELLA PNEUMONIAE AT [facility] SITE FROM LAB AT 1204. CALLED MD AND REPEAT RESULT TO MD AT 1208. NO FURTHER ORDERS OBTAINED. VERBALIZES RECEIVING RESULT
--- NOTE | 2016-10-02 13:06 | NUR ---
VENT CHECK BS DIMINISHED PT ASLEEP
--- NOTE | 2016-10-02 13:43 | NUR ---
DR. LICONA AT BEDSIDE TO SEE PT. WILL F/U WITH ORDERS
--- NOTE | 2016-10-02 15:11 | NUR ---
VENT CHECK BS RHONCI I\L LAVAGE AND SX MOD CREAMY I\L HHN GIVEN WITH 3 MG DUONEB
[2016-10-02 16:31] LABS: HEMOGLOBIN A1C 5.8 % (4.8-5.6)
[2016-10-02] MEDS: VANCOMYCIN 1GM/DEXT 5% PREMIX 200 ML IV SCH (16:36)
[2016-10-02] MEDS: AMIODARONE 200 MG TAB GT SCH (16:37)
--- NOTE | 2016-10-02 17:08 | NUR ---
VENT CHECK BS CL\DIM AIRWAY IS PATENT
--- NOTE | 2016-10-02 18:35 | NUR ---
DR. HODGSON AT BEDSIDE TO SEE PT. WILL F/U WITH NEW ORDERS.
--- NOTE | 2016-10-02 19:20 | NUR ---
RECEIVED REPORT FROM DILAN FARNSWORTH. AT BEDSIDE, PATIENT IS DROWSY, APHASIC, NOT ABLE TO FOLLOW COMMANDS. TRACH TO VENT WITH SETTINGS OF FIO2 28%, TIDAL VOLUME 450, A/C 12, PEEP 5. NO S/S OF SOB/ DISTRESS NOTED, CLEAR LUNG SOUNDS, SR ON MONOMER PURIFICATION OPERATOR WITH REGULAR HR, ABDOMEN SOFT WITH ACTIVE BOWEL SOUNDS, G-TUBE IN PLACE RUNNING FIBERSOURCE AT 60ML/HR WITH H2O FLUSH 150ML Q4HRS, TOLERATED WELL, 0ML RESIDUAL. IV TO RIGHT HAND 22GA SL, PATENT AND INTACT, IV SITE TO LEFT HAND 22GA RUNNING NS AT 20 ML/HR. DUKE CATHETER IN PLACE DRAINING TO GRAVITY WITH CLEAR YELLOW URINE NOTED. BEDBOUND, RIGID TO ALL EXTREMITIES. AFEBRILE, SKIN IS INTACT, WARM AND DRY TO TOUCH. VSS, FLACC 0. ORAL CARE PROVIDED, POSITION CHANGED FOR OFF LOAD PRESSURE, SAFETY MEASURES IN PLACE, HOB AT 30 DEGREES, CALL LIGHT WITHIN REACH. WILL CONTINUE TO MONITOR.
--- NOTE | 2016-10-02 19:42 | NUR ---
RECEIVED PT STABLE ON VENT SUPPORT AT DOCUMENTED SETTINGS, SXN'D SMALL THICK CLEAR SECRETIONS, HHN TX GIVEN, TOLERATED WELL, NO RESP DISTRESS OR SOB NOTED, 7 PORTEX TRACH PATENT/SECURE/MIDLINE, VENT PLUGGED INTO RED OUTLET, ALARMS SET AND AUDIBLE, BAG MASK AT BEDSIDE, WILL CONTINUE TO MONITOR.
[2016-10-02] MEDS: ATORVASTATIN 20 MG TAB GT SCH (21:30)
--- NOTE | 2016-10-02 21:30 | NUR ---
SCHEDULED MEDICATION GIVEN VIA GT, PT TOLERATED WELL
[2016-10-03] VITALS (18 sets, daily range): BP systolic 114–154; BP diastolic 40–96
--- NOTE | 2016-10-03 | NUR ---
NO CHANGE OF CONDITION AT THIS TIME, VSS, ORAL CARE PROVIDED, POSITION CHANGED FOR OFF LOAD PRESSURE.
[2016-10-03] MEDS: ALBUTEROL SULFATE/IPRATROPIU 3 ML SOL IH SCH ×6 (03:04→23:39)
--- NOTE | 2016-10-03 04:00 | NUR ---
AM CARE PROVIDED, ORAL CARE PROVIDED, PT TOLERATED WELL, POSITION CHANGED FOR OFF LOAD PRESSURE, VSS.
[2016-10-03 04:38] LABS: BASOPHILS % (AUTO) 0.1 % (0.0-2.0); EOSINOPHILS # (AUTO) 0.2 K/uL (0-0.4); EOSINOPHILS % (AUTO) 1.8 % (0.0-4.0); HEMATOCRIT 26.3 % (36-48); HEMOGLOBIN 8.4 g/dL (12.0-16.0); LYMPHOCYTES % (AUTO) 9.5 % (20.5-51.1); MEAN CORPUSCULAR HEMOGLOBIN 28 pg (27-31); MEAN CORPUSCULAR HGB CONC 32 g/dL (33-37); MEAN CORPUSCULAR VOLUME 87 fL (80-94); MONOCYTES # (AUTO) 0.4 K/uL (0.8-1.0); MONOCYTES % (AUTO) 3.9 % (1.7-9.3); NEUTROPHILS # (AUTO) 8.4 K/uL (1.8-7.7); NEUTROPHILS % (AUTO) 84.7 % (42.2-75.2); PLATELET COUNT (AUTO) 278 K/uL (140-450); RED BLOOD CELL COUNT(AUTO) 3.02 MIL/uL (4.20-5.40)
[2016-10-03] MEDS: LANSOPRAZOLE 30 MG CAPDR GT SCH (05:45)
[2016-10-03] MEDS: LEVOTHYROXINE 0.075 MG TAB GT SCH (05:45)
[2016-10-03] MEDS: NACL 0.9% 1,000 ML IV SCH (05:45)
[2016-10-03 06:02] LABS: CALCIUM 8.1 mg/dL (8.5-10.1); CARBON DIOXIDE 28.1 mmol/L (21-32); CHLORIDE 94 mmol/L (98-107); CREATININE 0.8 mg/dL (0.6-1.3); GLUCOSE 154 mg/dL (74-106); POTASSIUM 4.1 mmol/L (3.5-5.1); SODIUM SERUM 131 mmol/L (136-145); UREA NITROGEN, BLOOD 15 mg/dL (7-18)
--- NOTE | 2016-10-03 07:10 | NUR ---
REPORT GIVEN TO DILAN FARNSWORTH AT BEDSIDE, PT IS IN STABLE CONDITION AT THIS TIME.
--- NOTE | 2016-10-03 07:11 | NUR ---
RECIVED PT N VENT WITH SETTINGS CHARTED BREATHS SOUNDS PRESENT BILAT COARSE SXN PT WITH MIN AMT OFF WHITE SECS AMBU BAG AT BED SIDE TRACH PRESENT INPLACE PORTEX 7 VENT PLUGGED INTO RED OUTLET
--- NOTE | 2016-10-03 07:30 | NUR ---
RECEIVE REPORT FROM DILAN HERNANDEZ. PT IS ALERT AND ORIENTED X 0. OPENS EYES TO PAIN. WITHDRAW FROM PAIN. UNABLE TO FOLLOW COMMANDS. PERRL NOTED IN BILATERAL EYES. TRACH TO VENT. FIO2 28%, AC 12, TV 450, PEEP 5. R HAND 22 GAUGE NOTED. SALINE LOCKED. LEFT HAND 20 GAUGE IV NOTED. INTACT AND PATENT. SR ON MONITOR. RIGIDNESS NOTED ON BUE AND BLE. SKIN INTACT. G TUBE NOTED. RESIDUAL 10 CC. FLUSHING WELL. TOLERATING TUBE FEEDING. DUKE CATHETER IN PLACE. DRAINING CLEAR YELLOW URINE. SAFETY AND ASPIRATION PRECAUTION MAINTAINED. WILL CONTINUE TO MONITOR.
--- NOTE | 2016-10-03 08:30 | NUR ---
MEDICATION GIVEN THROUGH GTUBE. TOLERATED WELL. 0 RESIDUAL NOTED. WILL CONTINUE TO MONITOR.
--- NOTE | 2016-10-03 08:45 | NUR ---
DR. KIM AT BEDSIDE TO SEE PT. NOTIFIED DR. KIM OF [facility] RENEWAL. DR STATED HE WILL RENEW
[2016-10-03] MEDS: DOCUSATE 100 MG/10 ML UDC GT SCH ×2 (08:47→20:55)
[2016-10-03] MEDS: MEMANTINE 10 MG TAB GT SCH ×2 (08:48→20:55)
[2016-10-03] MEDS: LISINOPRIL 5 MG TAB PO SCH (08:48)
[2016-10-03] MEDS: FERROUS SULFATE 300 MG/5 ML UDC GT SCH ×2 (08:48→20:55)
[2016-10-03] MEDS: LACTOBACILLUS RHAMNOSUS GG 1 EACH CAP GT SCH (08:48)
[2016-10-03] MEDS: amLODIPine 5 MG TAB GT SCH (08:49)
[2016-10-03] MEDS: CARBIDOPA/LEVODOPA 25/100 MG 1 TAB PO SCH ×3 (08:49→16:12)
[2016-10-03] MEDS: DILTIAZEM 60 MG TAB GT SCH (08:49)
[2016-10-03] MEDS: FUROSEMIDE 40 MG/4 ML VIAL IVP SCH (08:50)
[2016-10-03] MEDS: METOPROLOL 25 MG TAB GT SCH ×2 (08:55→20:55)
[2016-10-03] MEDS: VITAMIN A/VITAMIN D OINT 113 GM TUBE TP SCH (08:57)
[2016-10-03 09:41] LABS: FOLIC ACID > 20.00 ng/mL (>3.0)
[2016-10-03 10:03] LABS: FERRITIN 391 ng/mL (15-150)
--- NOTE | 2016-10-03 10:04 | NUR ---
DR. JIMENEZ AT BEDSIDE TO SEE PT. WILL F/U WITH ANY ORDERS
[2016-10-03] MEDS ORDERED: VANCOMYCIN PER PHARMACY MC PRN (10:35)
--- NOTE | 2016-10-03 11:39 | NUR ---
NOTIFIED DR. KIM ABOUT SPUTUM CULTURE RESULT. DR. KIM STATED HE'LL LOOK AT RESULTS
--- NOTE | 2016-10-03 11:53 | NUR ---
DR. SKINNER AT BEDSIDE TO SEE PATIENT. WILL F/U WITH NEW ORDERS.
--- NOTE | 2016-10-03 13:45 | NUR ---
DR. HODGSON AT BEDSIDE TO SEE PT. WILL F/U WITH NEW ORDERS
[2016-10-03] MEDS: VANCOMYCIN 1GM/DEXT 5% PREMIX 200 ML IV SCH (15:34)
--- NOTE | 2016-10-03 16:49 | NUR ---
FAXED [facility] TO [facility].
--- NOTE | 2016-10-03 17:03 | NUR ---
CONTINUED TO MONITOR PT ON VENT WITH SETTINGS CHARTED BREATH SOUNDS PRESENT BILAT SCATTERD RHONCHI SEEMS TO CLEAR AFTER SXN SXN MIN AMT OFF WHITE SECS AMBU BAG AT BEDSIDE VENT PLUGGED INTO RED OUTLET
--- NOTE | 2016-10-03 18:30 | NUR ---
PT DESAT TO 75-78%. PULSE OX READJUSTED. PULSE OX REPLACED. INTERVENTIONS DID NOT CHANGE O2 SAT. WAVEFORM NORMAL BUT PTS LIPS APPEARS TO BE TURNING BLUE. RT NOTIFIED. FIO2 CHANGED TO 100%. PT SATURATION WENT UP TO 100%. PT RESTING IN BED. NO APPARENT S/SX OF DISTRESS NOTED.
--- NOTE | 2016-10-03 19:20 | NUR ---
REPORT GIVEN TO DILAN BLOCK. PT IS IN STABLE CONDITION.
--- NOTE | 2016-10-03 19:30 | NUR ---
RECEIVED REPORT FROM SORAIDA KONG. PATIENT IS RESTING IN BED. PATIENT IS TELEMETRY STATUS. PATIENT OPENS EYES SPONTANEOUSLY, BUT DOES NOT FOLLOW COMMANDS. PATIENT IS AFEBRILE AND VITAL SIGNS ARE WNL. FLACC 0. PATIENT IS BEDBOUND. PATIENT IS TRACH TO VENT WITH SETTINGS OF FIO2 80%, TIDAL VOLUME 450, A/C 12, AND PEEP OF 5. BREATH SOUNDS ARE COARSE ON AUSCULTATION. BOWEL SOUNDS ARE ACTIVE. THERE IS A G-TUBE PRESENT RECEIVING FIBERSOURCE AT 60 ML/HR. PATIENT TOLERATING G-TUBE FEEDING WELL WITH 5ML RESIDUAL NOTED. THERE IS A #22 IN THE RIGHT HAND SALINE LOCK. SITE IS DRY AND INTACT. THERE IS A #22 IN THE LEFT HAND RECEIVING NORMAL SALINE AT 20 ML/HR. SITE IS DRY, INTACT, AND ASYMPTOMATIC. THERE IS A DUKE CATHETER PRESENT WITH MODERATE AMOUNT OF CLEAR YELLOW URINE NOTED. VAP ORAL CARE RENDERED. NO SIGNS OF RESPIRATORY DISTRESS NOTED. HOB AT 30 DEGREES WITH BED IN LOW POSITION. WILL CONTINUE TO MONITOR PATIENT.
--- NOTE | 2016-10-03 20:35 | NUR ---
AT BEDSIDE. NO SIGNS OF RESPIRATORY DISTRESS OR SOB NOTED. CONTINUE TO MONITOR.
[2016-10-03] MEDS: ATORVASTATIN 20 MG TAB GT SCH (20:55)
--- NOTE | 2016-10-03 21:10 | NUR ---
PATIENT TOLERATED DUE MEDICATIONS. PATIENT REPOSITIONED FOR COMFORT. NO SIGNS OF RESPIRATORY DISTRESS NOTED. HOB AT 30 DEGREES WITH BED IN LOW POSITION. WILL CONTINUE TO MONITOR PATIENT.
--- NOTE | 2016-10-03 21:15 | NUR ---
LEFT THE UNIT. NO CHANGES IN PATIENT'S CONDITION. CONTINUE TO MONITOR.
--- NOTE | 2016-10-03 23:10 | NUR ---
PATIENT HAD MODERATE BM OF GREENISH PASTY STOOL. PERINEAL CARE PROVIDED. PATIENT REPOSITIONED FOR COMFORT. VAP ORAL CARE RENDERED. NO SIGNS OF RESPIRATORY DISTRESS NOTED. HOB AT 30 DEGREES WITH BED IN LOW POSITION. WILL CONTINUE TO MONITOR.
--- NOTE | 2016-10-03 23:53 | NUR ---
1830 PT SATS DROPPED TO 86%. PLACED PT ON 100% FIO2 WILL CONTINUE TO MONITOR
--- NOTE | 2016-10-03 23:54 | NUR ---
21OO DROPPED FI2 TO 80% SATS 100%
--- NOTE | 2016-10-03 23:55 | NUR ---
2330 DROPPED FIO2 TO 60%. PT SATS 100%
[2016-10-04] VITALS (18 sets, daily range): BP systolic 90–138; BP diastolic 47–69
--- NOTE | 2016-10-04 01:05 | NUR ---
PATIENT REPOSITIONED FOR COMFORT. NO SIGNS OF SOB NOTED. HOB AT 30 DEGREES WITH BED IN LOW POSITION. CONTINUE TO MONITOR PATIENT.
--- NOTE | 2016-10-04 01:38 | NUR ---
0138 LOWERED FIO2 TO 40%. SATS 100%
[2016-10-04] MEDS: ALBUTEROL SULFATE/IPRATROPIU 3 ML SOL IH SCH ×6 (03:24→22:47)
--- NOTE | 2016-10-04 03:50 | NUR ---
PATIENT HAD SMALL BM OF GREENISH STOOL. MORNING CARE, PERINEAL CARE, AND CATHETER CARE RENDERED. BED BATH PROVIDED. PATIENT REPOSITIONED FOR COMFORT. VAP ORAL CARE RENDERED. NO SIGNS OF RESPIRATORY DISTRESS NOTED. HOB AT 30 DEGREES WITH BED IN LOW POSITION. WILL CONTINUE TO MONITOR PATIENT.
--- NOTE | 2016-10-04 05:05 | NUR ---
WEAVING INSPECTOR AMELIA AT BEDSIDE FOR SCHEDULED MORNING LAB DRAWS.
[2016-10-04] MEDS: NACL 0.9% 1,000 ML IV SCH (05:31)
[2016-10-04 05:32] LABS: BASOPHILS % (AUTO) 0.1 % (0.0-2.0); EOSINOPHILS # (AUTO) 0.3 K/uL (0-0.4); EOSINOPHILS % (AUTO) 2.2 % (0.0-4.0); HEMATOCRIT 26.2 % (36-48); HEMOGLOBIN 8.7 g/dL (12.0-16.0); LYMPHOCYTES # (AUTO) 1.2 K/uL (2.5-16.5); LYMPHOCYTES % (AUTO) 8.8 % (20.5-51.1); MEAN CORPUSCULAR HEMOGLOBIN 29 pg (27-31); MEAN CORPUSCULAR HGB CONC 33 g/dL (33-37); MEAN CORPUSCULAR VOLUME 87 fL (80-94); MONOCYTES # (AUTO) 0.5 K/uL (0.8-1.0); MONOCYTES % (AUTO) 3.5 % (1.7-9.3); NEUTROPHILS # (AUTO) 11.7 K/uL (1.8-7.7); NEUTROPHILS % (AUTO) 85.4 % (42.2-75.2); PLATELET COUNT (AUTO) 291 K/uL (140-450); RED BLOOD CELL COUNT(AUTO) 3.02 MIL/uL (4.20-5.40); RED CELL DISTRIBUTION WIDTH 16.9 % (11.6-13.7)
[2016-10-04] MEDS: LANSOPRAZOLE 30 MG CAPDR GT SCH (05:32)
[2016-10-04] MEDS: LEVOTHYROXINE 0.075 MG TAB GT SCH (05:32)
[2016-10-04 06:04] LABS: ANION GAP 13.8 (8-16); CALCIUM 8.3 mg/dL (8.5-10.1); CARBON DIOXIDE 28.9 mmol/L (21-32); CHLORIDE 92 mmol/L (98-107); CREATININE 0.8 mg/dL (0.6-1.3); GLUCOSE 151 mg/dL (74-106); POTASSIUM 3.7 mmol/L (3.5-5.1); SODIUM SERUM 131 mmol/L (136-145); UREA NITROGEN, BLOOD 16 mg/dL (7-18)
[2016-10-04 06:14] LABS: MAGNESIUM 1.9 mg/dL (1.8-2.4); PHOSPHORUS 3.2 mg/dL (2.5-4.9)
[2016-10-04 06:24] LABS: WHITE BLOOD COUNT (AUTO) 13.7 K/uL (4.8-10.8)
--- NOTE | 2016-10-04 07:16 | NUR ---
RECIVED PT ON VENT WITH SETTINGS CHARTED BREATH SOUNDS PRESENT BILAT COARSE SXN PT WITH MOD AMT OFF WHITE SECS CHECKED TRACH AND TRACH TUBE PORTEX [address] AMBU BAG AT BEDSIDE VENT PLUGGED INTO RED OUTLET WILL CONTINUE TO MONITOR PT
--- NOTE | 2016-10-04 07:18 | NUR ---
NO SIGNS OF RESPIRATORY DISTRESS. ALL PATIENT'S NEEDS ATTENDED TO DURING SHIFT. ENDORSED CONTINUITY OF CARE TO LEI KONG.
--- NOTE | 2016-10-04 07:30 | NUR ---
RECEIVED REPORT FROM UMAIR KONG.PATIENT IS TELEMETRY STATUS. BEDSIDE MONITOR SHOWS A-FIB AT THIS TIME.FLACC 0. PATIENT IS BEDBOUND.PATIENT OPENS EYES SPONTANEOUSLY BUT DOES NOT FOLLOW COMMANDS. PATIENT IS TRACH TO VENT WITH SETTINGS OF FIO2 30%, TIDAL VOLUME 450, A/C 12, AND PEEP OF 5.NO SIGNS OF RESPIRATORY DISTRESS NOTED. BREATH SOUNDS ARE COARSE ON AUSCULTATION. BOWEL SOUNDS ARE ACTIVE. G-TUBE PRESENT RECEIVING FIBERSOURCE AT 60 ML/HR. RESIDUAL CHECKED 300ML, HOLD TUBE FEEDING. IV #22 TO RIGHT HAND SALINE LOCK. SITE IS DRY AND INTACT. IV #22 TO LEFT HAND RECEIVING NORMAL SALINE AT 20 ML/HR. SITE IS DRY, INTACT, AND ASYMPTOMATIC. DUKE CATHETER PRESENT WITH SMALL AMOUNT OF CLEAR YELLOW URINE NOTED. VAP ORAL CARE RENDERED. HOB AT 30 DEGREES WITH BED IN LOW POSITION. WILL CONTINUE TO MONITOR PATIENT.
[2016-10-04] MEDS: FERROUS SULFATE 300 MG/5 ML UDC GT SCH ×2 (08:20→20:32)
[2016-10-04] MEDS: DOCUSATE 100 MG/10 ML UDC GT SCH ×2 (08:21→20:32)
[2016-10-04] MEDS: CARBIDOPA/LEVODOPA 25/100 MG 1 TAB PO SCH ×3 (08:21→16:21)
[2016-10-04] MEDS: FUROSEMIDE 40 MG/4 ML VIAL IVP SCH (08:21)
[2016-10-04] MEDS: LACTOBACILLUS RHAMNOSUS GG 1 EACH CAP GT SCH (08:21)
[2016-10-04] MEDS: DILTIAZEM 60 MG TAB GT SCH ×2 (08:22→21:00)
[2016-10-04] MEDS: amLODIPine 5 MG TAB GT SCH (08:23)
[2016-10-04] MEDS: LISINOPRIL 5 MG TAB PO SCH (08:24)
[2016-10-04] MEDS: METOPROLOL 25 MG TAB GT SCH (08:24)
--- NOTE | 2016-10-04 09:00 | NUR ---
DUE MEDS GIVEN, PT TOLERATED WELL.
[2016-10-04] MEDS: MEMANTINE 10 MG TAB GT SCH ×2 (09:48→20:32)
[2016-10-04] MEDS: VITAMIN A/VITAMIN D OINT 113 GM TUBE TP SCH (09:49)
--- NOTE | 2016-10-04 10:08 | NUR ---
TURNED AND REPOSITIONED PT. RESIDUAL CHECKED 150ML. WILL STILL HOLD TUBE FEEDING.
--- NOTE | 2016-10-04 11:50 | NUR ---
RESIDUAL CHECKED 50 ML, RESTARTED PT ON TUBE FEEDING.
--- NOTE | 2016-10-04 12:20 | NUR ---
10/04/16 RD FOLLOW-UP ASSESSMENT COMPLETED PLEASE REFER TO NUTRITION ASSESSMENT UNDER CARE ACTIVITY FOR ESTIMATED NUTRITIONAL NEEDS. 1. RESUME TF FIBERSOURCE HN 1.2 JESICA TO START AT 30 ML/HR AND ADVANCE TOLERATED TO GOAL RATE OF 60 ML/HR CONTINUOUS (PROVIDES 1728 KCAL, 77 G PROTEIN, 1163 ML FREE WATER - MEETS 100% KCAL + 89% PROTEIN ESTIMATED NEEDS) 2. D/C WATER FLUSHES 3. RD TO FOLLOW-UP 2-3 DAYS; HIGH RISK HAILEY HAYWARD, LUIS
--- NOTE | 2016-10-04 13:50 | NUR ---
TURNED AND REPOSITIONED PT.ORAL CARE GIVEN. SUCTIONED PT WITH SMALL AMOUNT OF SECRETION. NO S/S OF RESPIRATORY DISTRESS NOTED.
[2016-10-04] MEDS: VANCOMYCIN 1GM/DEXT 5% PREMIX 200 ML IV SCH (16:21)
--- NOTE | 2016-10-04 16:25 | NUR ---
PT HAD SMALL AMOUNT OF GREENISH BROWN SOFT STOOL, CLEANED PT.
--- NOTE | 2016-10-04 17:00 | NUR ---
CONTINUEDTO MONITOR PT ON VENT WITH SETTINGS CHARTED BREATH SOUNDS PRESENT BILAT COARSE SXM PT WITH MIN AMT YELLOW SECSVENT PLUGGED INTO RED OUTLET AMBU BAG AT BEDSIDE
--- NOTE | 2016-10-04 18:15 | NUR ---
TURNED AND REPOSITIONED PT, NO S/S OF RESPIRATORY DISTRESS NOTED.
--- NOTE | 2016-10-04 19:09 | NUR ---
REPORT GIVEN TO ALBERTO KONG , VSS, NO S/S OF RESPIRATORY DISTRESS NOTED.
--- NOTE | 2016-10-04 19:10 | NUR ---
RECEIVED REPORT FROM DAY NURSE LEI, RN FOR TRANSFER OF CARE. PT OPENS EYES SPONTANEOUSLY BUT DOES NOT FOLLOW COMMANDS. PT IS TRACH TO VENT WITH CURRENT SETTINGS AT FI02 30%, VT 450, A/C 12, PEEP 5 WITH NO S/S OF ACUTE RESP DISTRESS NOTED AT THIS TIME. [employer] OFFICER SHOWS SR AT THIS TIME. PT HAS G-TUBE IN PLACE RUNNING FIBERSOURCE AT 60 ML/HR WITH 50ML GASTRIC RESIDUAL ASPIRATED AT THIS TIME.PT HAS LEFT HAND IV #22G RUNNING NORMAL SALINE AT 20 ML/HR AND RIGHT HAND #22G IV SALINE LOCKED, SITES ARE DRY, PATENT, INTACT. DUKE CATHETER IS PRESENT WITH SMALL AMOUNT OF CLEAR YELLOW URINE NOTED DRAINING VIA GRAVITY. HOB AT 30 DEGREES WITH BED IN LOW POSITION. NO S/S OF DISCOMFORT.WILL CONTINUE TO MONITOR PATIENT.
--- NOTE | 2016-10-04 19:27 | NUR ---
RCV'D PT ON VENTILATOR WITH TRACH PORTEX 7. SETTINGS ARE AC 12,450,30%,+5. VENT IS CONNECTED TO RED OUTLET. ALARMS ARE WORKING AND AUDIBLE. AMBU BAG AT BEDSIDE. PT IS AWAKE AND QUITE. SXN'D MOD AMT OF THICK YELLOW SECRETIONS.BS COARSE. HHN TX GIVEN. WILL CONTINUE TO MONITOR.
--- NOTE | 2016-10-04 20:11 | NUR ---
DR ZULETA HERE ON UNIT TO SEE PATIENT. WILL FOLLOW UP WITH ANY ORDERS.
[2016-10-04] MEDS: ATORVASTATIN 20 MG TAB GT SCH (20:32)
[2016-10-04] MEDS: METOPROLOL 50 MG TAB GT SCH (21:00)
--- NOTE | 2016-10-04 21:05 | NUR ---
PT RESTING IN BED NO SOB NOTED AT THIS TIME. FAMILY AT BEDSIDE. WILL CONTINUE TO CLOSELY MONITOR.
--- NOTE | 2016-10-04 23:10 | NUR ---
ABG DONE WITH NO INCIDENT. RESULTS ARE GIVEN TO DR JONES. NO CHANGES MADE. HHN TX GIVEN. VENT CHECK DONE. PT IS ASLEEP. WILL CONTINUE TO MONITOR.
[2016-10-04 23:43] LABS: BLOOD GAS PH 7.487 (7.35-7.45)
[2016-10-04 23:44] LABS: BLOOD GAS BASE EXCESS 1.5 mmol/L (-2.0-2.0); BLOOD GAS HCO3 24.7 mmol/L; BLOOD GAS O2 SAT% 98.1 % (92.0-98.5); BLOOD GAS PCO2 33.4 mmHg (20-50); BLOOD GAS PO2 115.2 mmHg
[2016-10-05] VITALS (13 sets, daily range): BP systolic 88–124; BP diastolic 47–78
--- NOTE | 2016-10-05 00:13 | NUR ---
PT RESTING IN BED. NO S/S OF ACUTE RESP DISTRESS NOTED AT THIS TIME. NO SIGNS OF DISCOMFORT AT THIS TIME. WILL CONTINUE TO CLOSELY MONITOR.
[2016-10-05] MEDS: ALBUTEROL SULFATE/IPRATROPIU 3 ML SOL IH SCH ×4 (02:22→14:52)
--- NOTE | 2016-10-05 02:26 | NUR ---
HHN TX GIVEN. VENT CHECK DONE. PT IS ASLEEP. NO SOB OR DISTRESS NOTES. WILL CONTINUE TO MONITOR.
--- NOTE | 2016-10-05 02:37 | NUR ---
NO RESTING IN BED. FLACC 0 AT THIS TIME. NO SOB NOTED. WILL CONTINUE TO CLOSELY MONITOR.
--- NOTE | 2016-10-05 05:00 | NUR ---
MORNING CARE RENDERED, VAP ORAL KIT PROVIDED. PT BATHED, LINEN CHANGED. FLACC 0 AT THIS TIME. NO SOB NOTED. WILL CONTINUE TO MONITOR.
--- NOTE | 2016-10-05 05:15 | NUR ---
VENT CHECK DONE. TRACH CARE DONE WITHOUT INCIDENT. CHANGED INNER CANNULA, GAUZE, WU; HME. PT IS AWAKE AND QUIET. PT'S SP2 IS 100%. BS COARSE. SXN'D SMALL AMT OF THICK YELLOW SECRETIONS.NO SOB OR DISTRESS NOTED. WILL CONTINUE TO MONITOR.
[2016-10-05] MEDS: LANSOPRAZOLE 30 MG CAPDR GT SCH (06:07)
[2016-10-05] MEDS: LEVOTHYROXINE 0.075 MG TAB GT SCH (06:07)
[2016-10-05] MEDS: NACL 0.9% 1,000 ML IV SCH (06:07)
[2016-10-05 06:35] LABS: BASOPHILS % (AUTO) 0.1 % (0.0-2.0); EOSINOPHILS # (AUTO) 0.4 K/uL (0-0.4); EOSINOPHILS % (AUTO) 2.7 % (0.0-4.0); HEMOGLOBIN 8.6 g/dL (12.0-16.0); LYMPHOCYTES # (AUTO) 1.1 K/uL (2.5-16.5); LYMPHOCYTES % (AUTO) 7.1 % (20.5-51.1); MEAN CORPUSCULAR HEMOGLOBIN 29 pg (27-31); MEAN CORPUSCULAR HGB CONC 33 g/dL (33-37); MEAN CORPUSCULAR VOLUME 87 fL (80-94); MONOCYTES # (AUTO) 0.6 K/uL (0.8-1.0); MONOCYTES % (AUTO) 3.9 % (1.7-9.3); NEUTROPHILS # (AUTO) 13.1 K/uL (1.8-7.7); NEUTROPHILS % (AUTO) 86.2 % (42.2-75.2); PLATELET COUNT (AUTO) 293 K/uL (140-450); RED BLOOD CELL COUNT(AUTO) 2.98 MIL/uL (4.20-5.40); RED CELL DISTRIBUTION WIDTH 16.9 % (11.6-13.7)
--- NOTE | 2016-10-05 06:36 | NUR ---
PT RESTING IN BED. NO SOB NOTED AT THIS TIME. CONTACT PRECAUTIONS STILL MAINTAINED, HOB UP, BED IN LOW POSITION. WILL CONTINUE TO CLOSELY MONITOR.
[2016-10-05 06:52] LABS: ANION GAP 11.7 (8-16); CALCIUM 8.3 mg/dL (8.5-10.1); CARBON DIOXIDE 29.1 mmol/L (21-32); CHLORIDE 92 mmol/L (98-107); CREATININE 0.8 mg/dL (0.6-1.3); GLUCOSE 181 mg/dL (74-106); POTASSIUM 3.8 mmol/L (3.5-5.1); SODIUM SERUM 129 mmol/L (136-145); UREA NITROGEN, BLOOD 20 mg/dL (7-18)
[2016-10-05 06:54] LABS: MAGNESIUM 1.9 mg/dL (1.8-2.4)
--- NOTE | 2016-10-05 07:10 | NUR ---
RECEIVED TRACH PT ON VENT EQUIPPED WITH A SIZE 7 PORTEX TRACH. VENT SETTINGS AC 12, VT 450, PEEP 5 AND FIO2 30%. PT IS AWAKE BUT NOT ALERT. B.S ARE COARSE BILATERALLY TO AUSCULTATION. PT SUCTIONED OBTAINED SMALL AMOUNT OF THICK YELLOW SECRETIONS,AIRWAY IS PATENT, TRACH IS SECURE. VENT ALARMS ARE ON AND FUNCTIONING WITH AMBU BAG PRESENT AT BEDSIDE. VENT IS PLUGGED INTO RED OUTLET. PT IS NOT SOB AND NOT IN RESPIRATORY DISTRESS AT THIS TIME. WILL CONTINUE TO MONITOR.
--- NOTE | 2016-10-05 07:10 | NUR ---
ENDORSED PLAN OF CARE TO DAY NURSES DILAN ODOM RN UGOCHI RN FOR TRANSFER OF CARE. PT STABLE AT THIS TIME.
--- NOTE | 2016-10-05 07:40 | NUR ---
RECEIVE REPORT FROM DILAN HERNANDEZ. PT IS ALERT AND ORIENTED X 0. OPENS EYES TO PAIN. WITHDRAW FROM PAIN. UNABLE TO FOLLOW COMMANDS. PERRL NOTED IN BILATERAL EYES. TRACH TO VENT. FIO2 230%, AC 12, TV 450, PEEP 5. R HAND 22 GAUGE NOTED. SALINE LOCKED. LEFT HAND 22 GAUGE IV NOTED. INTACT AND PATENT. SR ON MONITOR. RIGIDNESS NOTED ON BUE AND BLE. SKIN INTACT. G TUBE NOTED. MINIMAL RESIDUAL NOTED. FLUSHING WELL. TOLERATING TUBE FEEDING. DUKE CATHETER IN PLACE. DRAINING CLEAR YELLOW URINE. SAFETY AND ASPIRATION PRECAUTION MAINTAINED. WILL CONTINUE TO MONITOR. Addendum: 10/05/16 at 0742 by Julio César Diamond RN RECEIVED REPORT FROM DILAN DOMINGUEZ.
[2016-10-05 07:52] LABS: WHITE BLOOD COUNT (AUTO) 15.2 K/uL (4.8-10.8)
--- NOTE | 2016-10-05 08:30 | NUR ---
MEDICATION GIVEN THROUGH GTUBE. TOLERATED WELL.
[2016-10-05] MEDS: FUROSEMIDE 40 MG/4 ML VIAL IVP SCH (08:39)
[2016-10-05] MEDS: VITAMIN A/VITAMIN D OINT 113 GM TUBE TP SCH (08:39)
[2016-10-05] MEDS: DOCUSATE 100 MG/10 ML UDC GT SCH (08:46)
[2016-10-05] MEDS: LACTOBACILLUS RHAMNOSUS GG 1 EACH CAP GT SCH (08:46)
[2016-10-05] MEDS: FERROUS SULFATE 300 MG/5 ML UDC GT SCH (08:46)
[2016-10-05] MEDS: LISINOPRIL 5 MG TAB PO SCH (08:47)
[2016-10-05] MEDS: CARBIDOPA/LEVODOPA 25/100 MG 1 TAB PO SCH ×3 (08:47→17:06)
[2016-10-05] MEDS: METOPROLOL 50 MG TAB GT SCH (08:47)
[2016-10-05] MEDS: MEMANTINE 10 MG TAB GT SCH (08:48)
[2016-10-05] MEDS: DILTIAZEM 60 MG TAB GT SCH (08:48)
--- NOTE | 2016-10-05 10:00 | NUR ---
DR. JIMENEZ AT BEDSIDE TO SEE PT. WILL F/U WITH NEW ORDERS
[2016-10-05] MEDS ORDERED: MEROPENEM 500 MG in NACL 0.9% 50 ML IV SCH ×2 (10:22→21:00)
[2016-10-05] MEDS ORDERED: AD45 TP (10:36)
[2016-10-05] MEDS ORDERED: LACT10CA GT (10:36)
[2016-10-05] MEDS ORDERED: MEMA10TA GT (10:36)
[2016-10-05] MEDS ORDERED: SYN.075 GT (10:36)
[2016-10-05] MEDS ORDERED: IPRA3AMP IH (10:36)
[2016-10-05] MEDS ORDERED: COL100L GT (10:36)
[2016-10-05] MEDS ORDERED: ATOR20TA40 GT (10:36)
[2016-10-05] MEDS ORDERED: ONDA2SOL45 GT (10:36)
[2016-10-05] MEDS ORDERED: ARTOP OP (10:36)
[2016-10-05] MEDS ORDERED: HEPA500055 SUBQ (10:36)
[2016-10-05] MEDS ORDERED: NITR0.4T1 SL (10:36)
[2016-10-05] MEDS ORDERED: FER300L GT (10:36)
[2016-10-05] MEDS ORDERED: LANS30EC68 GT (10:36)
[2016-10-05] MEDS ORDERED: METO50TA99 GT (10:36)
[2016-10-05] MEDS ORDERED: DILT60TA94 GT (10:36)
[2016-10-05] MEDS ORDERED: LAS20I IVP (10:36)
[2016-10-05] MEDS ORDERED: ACET-1182 PO (10:36)
[2016-10-05] MEDS ORDERED: LISI-424 PO (10:36)
[2016-10-05] MEDS ORDERED: SIN25100 PO (10:36)
[2016-10-05] MEDS ORDERED: Miscellaneous MC (10:36)
--- NOTE | 2016-10-05 10:59 | NUR ---
NOTIFIED DR. HODGSON ABOUT BRADYCARDIA AFTER CARDIZEM ADMINISTRATION. NEW ORDERS RECEIVED. WILL CONTINUE TO MONITOR
--- NOTE | 2016-10-05 11:03 | NUR ---
PT SUCTIONED OBTAINED SMALL AMOUNT OF THICK CLEAR/WHITE SECRETIONS, AIRWAYS IS PATENT AND TRACH IS SECURE. WILL CONTINUE TO MONITOR.
--- NOTE | 2016-10-05 11:42 | NUR ---
DR. SKINNER AT BEDSIDE TO SEE PT. WILL F/U WITH ANY NEW ORDERS.
--- NOTE | 2016-10-05 11:45 | NUR ---
DR. ANN AT BEDSIDE TO SEE PT. WILL F/U WITH ANY NEW ORDERS
--- NOTE | 2016-10-05 12:00 | NUR ---
CM NOTE FAXED PATIENT INFORMATION AND NEW ORDERS TO [facility] [place] ATTN: MAHESH F: [phone]
[2016-10-05 12:48] LABS: TRANSFERRIN 166 mg/dL (200-370)
--- NOTE | 2016-10-05 13:01 | NUR ---
CM NOTE SPOKE WITH MAHESH OF [facility] [place] PH# [phone] AND SHE SAID PATIENT CAN GO TO [facility] [place] RM 26A AFTER 7:00PM TODAY. ICU NURSE ALIYAH MCMILLAN.
--- NOTE | 2016-10-05 13:21 | NUR ---
DR. JONES AT BEDSIDE TO SEE PT. WILL F/U WITH ANY NEW ORDERS.
[2016-10-05 13:56] LABS: BASOPHILS % (AUTO) 0.2 % (0.0-2.0); EOSINOPHILS # (AUTO) 0.5 K/uL (0-0.4); EOSINOPHILS % (AUTO) 3.4 % (0.0-4.0); HEMATOCRIT 25.3 % (36-48); HEMOGLOBIN 8.3 g/dL (12.0-16.0); LYMPHOCYTES # (AUTO) 1.2 K/uL (2.5-16.5); LYMPHOCYTES % (AUTO) 8.2 % (20.5-51.1); MEAN CORPUSCULAR HEMOGLOBIN 28 pg (27-31); MEAN CORPUSCULAR HGB CONC 33 g/dL (33-37); MEAN CORPUSCULAR VOLUME 86 fL (80-94); MONOCYTES # (AUTO) 0.7 K/uL (0.8-1.0); MONOCYTES % (AUTO) 4.4 % (1.7-9.3); NEUTROPHILS # (AUTO) 12.7 K/uL (1.8-7.7); NEUTROPHILS % (AUTO) 83.8 % (42.2-75.2); PLATELET COUNT (AUTO) 286 K/uL (140-450); RED BLOOD CELL COUNT(AUTO) 2.94 MIL/uL (4.20-5.40); RED CELL DISTRIBUTION WIDTH 16.5 % (11.6-13.7)
[2016-10-05 14:13] LABS: WHITE BLOOD COUNT (AUTO) 15.1 K/uL (4.8-10.8)
--- NOTE | 2016-10-05 14:59 | NUR ---
PT SUCTIONED OBTAINED MODERATE AMOUNT OF THICK PALE YELLOW SECRETIONS, AIRWAY IS PATENT AND TRACH IS SECURE. PT IS NOT SOB AND NOT IN RESPIRATORY DISTRESS. WILL CONTINUE TO MONITOR.
--- NOTE | 2016-10-05 16:03 | NUR ---
CALLED [facility] ,SPOKE TO PARKER RN REGARDING TRANSFER THE PATIENT BACK TO ROOM 26-A TODAY AND MADE HIM AWARE OF REPEAT WBC IS STILL HIGH 15.1. MR PARKER STATES THAT THE BED IS STILL AVAILABLE FOR THE PATIENT AFTER 1900 HR. NURSE ODOM WAS INFORMED.
--- NOTE | 2016-10-05 16:51 | NUR ---
CALLED [facility] [phone], SPOKE TO EHSAN REGARDING TRANSPORTATION. NOTIFIED PT VENTILATOR DEPENDENT , ECG MONITORING REQUIRED AND CONTACT ISOLATION . PER EHSAN, THE LATEST AVAILABLE SCHEDULE IS AFTER 2100, IF THEY WILL CHANGE THE SCHEDULE, THEY WILL GIVE US A CALL IN ADVANCE.
--- NOTE | 2016-10-05 17:33 | NUR ---
[facility] CONFIRM TRANSPORT TIME WILL BE AT 1900
--- NOTE | 2016-10-05 18:08 | NUR ---
REPORT GIVEN TO [facility] NURSE
--- NOTE | 2016-10-05 18:36 | NUR ---
NOTIFIED PT'S ERIN [phone] PT WILL BE TRANSFERRED TO [facility] [place] AT 1900.
--- NOTE | 2016-10-05 19:02 | NUR ---
RECEIVED REPORT FROM DAY NURSE LEI, RN FOR TRANSFER OF CARE. PT IS TRACH TO VENT WITH NO S/S OF ACUTE RESP DISTRESS NOTED AT THIS TIME. AWAITING FOR [facility] TO ARRIVE ON UNIT FOR [place] [facility] [place]EDSIDE. WILL CONTINUE TO CLOSELY MONITOR.
--- NOTE | 2016-10-05 19:03 | NUR ---
[facility] TEAM PRESENT AT UNIT.
--- NOTE | 2016-10-05 19:15 | NUR ---
[facility] TEAM ON UNIT.PREPARING PATIENT TOR BE READY FOR TRANSFER, REPORT IS CURRENTLY BEING GIVEN TO [facility] NURSE SHARLA ECHEVARRIA RN. PT IS CURRENTLY RESTING IN BED. NO S/S OF ACUTE RESP DISTRESS NOTED AT THIS TIME. NO SIGNS OF DISCOMFORT NOTED AT THIS TIME. WILL CONTINUE TO MONITOR. AT BEDSIDE.
--- NOTE | 2016-10-05 19:26 | NUR ---
REPORT GIVEN TO SHARLA ECHEVARRIA RN.
--- NOTE | 2016-10-05 20:13 | NUR ---
PATIENT DISCHARGED FROM ICU AT 2009 TRANSPORTED BY [facility] GOING TO [facility], PATIENT'S ERIN METCALF WITH THE PATIENT UPON DISCHARGE.
[2016-10-05] MEDS ORDERED: DILTIAZEM 30 MG TAB GT SCH (21:00)
== END 2016-10-05 20:10 | DRG 207 ==
LOC: MED 12:02 → MIC 13:57
PROVIDERS: ADMIT Family Medicine; ATTEND Family Medicine
PROC: 5A1955Z Respiratory Ventilation, Greater than 96 Consecutive Hours (ICD-10-PCS; principal; 2016-09-29)
DX: J95.02 Infection of tracheostomy stoma (principal); J69.0 Pneumonitis due to inhalation of food and vomit; G93.41 Metabolic encephalopathy; E43 Unspecified severe protein-calorie malnutrition; J96.21 Acute and chronic respiratory failure with hypoxia; N17.0 Acute kidney failure with tubular necrosis; J90 Pleural effusion, not elsewhere classified; N39.0 Urinary tract infection, site not specified; E87.1 Hypo-osmolality and hyponatremia; I42.2 Other hypertrophic cardiomyopathy; K94.22 Gastrostomy infection; Z99.11 Dependence on respirator [ventilator] status; I11.0 Hypertensive heart disease with heart failure; G20 Parkinson's disease; G30.9 Alzheimer's disease, unspecified; K80.20 Calculus of gallbladder without cholecystitis without obstruction; F02.80 Dementia in other diseases classified elsewhere, unspecified severity, without behavioral disturbance, psychotic disturbance, mood disturbance, and anxiety; R13.10 Dysphagia, unspecified; B96.1 Klebsiella pneumoniae [K. pneumoniae] as the cause of diseases classified elsewhere; B96.4 Proteus (mirabilis) (morganii) as the cause of diseases classified elsewhere; Z16.20 Resistance to unspecified antibiotic; D50.9 Iron deficiency anemia, unspecified; K21.9 Gastro-esophageal reflux disease without esophagitis; I48.0 Paroxysmal atrial fibrillation; E11.9 Type 2 diabetes mellitus without complications; I25.10 Atherosclerotic heart disease of native coronary artery without angina pectoris; I50.9 Heart failure, unspecified; E87.8 Other disorders of electrolyte and fluid balance, not elsewhere classified; E03.9 Hypothyroidism, unspecified; Z88.0 Allergy status to penicillin; Z88.2 Allergy status to sulfonamides; Z88.8 Allergy status to other drugs, medicaments and biological substances; Z79.899 Other long term (current) drug therapy; Z83.3 Family history of diabetes mellitus; Z68.28 Body mass index [BMI] 28.0-28.9, adult
CPT/HCPCS: 36415; 36600; 51702; 71010; 76604; 76700; 80048; 80053; 80202; 81001; 82150; 82553; 82607; 82728; 82746; 82803; 83036; 83540; 83690; 83735; 83880; 84100; 84436; 84439; 84443; 84479; 84484; 85025; 85045; 85379; 85610; 85730; 87040; 87070; 87081; 87086; 87186; 87205; 89220; 90732; 93005; 93970; 94003; 94640; 96360; 99285; J0696; J1644; J1940; J2185; J3370; J3490; J7030; J7060; J7613; J7620; J7644; Q0092

== ENCOUNTER 2017-10-28 16:23 | Inpatient (IN) | payer OTHER ==
[~2017-10-28] VITALS: Ht 160 cm; Wt 69.9 kg
--- NOTE | 2017-10-28 16:15 | NUR ---
PT BIBA FOR SOB PLACED ON [place]ESCAPE VENT SETTINGS AC12 VT 500 PEEP 5 FIO2 50% ALARMS ON AND AUDIBLE, AMBU BAG AT [facility], PT WAS SNX FOR C&S LARGE AMT OF THICK WHITE SECRETIONS, B\S DIMINISHED BILATERALLY, PT IS TRACH WITH PORTEX 7 AND SKIN INTEGRITY IS INTACT, AT BEDSIDE
[2017-10-28 16:20] VITALS: BP 167/76
[~2017-10-28 16:23] MED LIST: ACET-1182 PO; AD45 TP; AMLO-27 PO; ARTOP OP; ATOR20TA40 GT; CARB1TAB37 PO; COL100L GT; DILT60TA94 GT; FER300L GT; HEPA500056 SUBQ; IPRA3AMP IH; LACT10CA GT; LANS30EC68 GT; LAS20I IVP; LISI-424 PO; LOV30I SC; MEMA10TA GT; METO50TA99 GT; Miscellaneous MC; NITR0.4S14 TD; NITR0.4T1 SL; ONDA2SOL45 GT; SYN.075 GT
[2017-10-28] MEDS ORDERED: CALCIUM CHLORIDE 10% 100 MG/ML SYR IVP ONE ×2 (16:26→17:30)
[2017-10-28 16:28] VITALS: BP 98/58
--- NOTE | 2017-10-28 16:28 | NUR ---
87f biba with c/o bradycardia and hypotension. Per wooden shade hardware installer report, on scene heart rate to the 40's and blood pressure 80s/40s. Patient with trach-collar to vent. on arrival heart rate=60s. Patient pulse ox=98% to vent. Patient at neuro baseline per . gcs=10. Spontaneous eye opening and withdraws to pain. RR are tachypneic. Patient has gt with purulent discharge. No fever noted upon triage. Skin is dry/cool/intact. ER MD Gandara by bedside. Patient to cardiac/blood pressure/pulse ox/heart rate monitoring. Will continue to monitor.
[2017-10-28 17:42] LABS: BASOPHILS % (AUTO) 0.3 % (0.0-2.0); EOSINOPHILS # (AUTO) 0.1 K/uL (0-0.4); EOSINOPHILS % (AUTO) 0.9 % (0.0-4.0); HEMATOCRIT 32.6 % (36-48); LYMPHOCYTES # (AUTO) 1.5 K/uL (2.5-16.5); LYMPHOCYTES % (AUTO) 15.7 % (20.5-51.1); MEAN CORPUSCULAR HEMOGLOBIN 30 pg (27-31); MEAN CORPUSCULAR HGB CONC 34 g/dL (33-37); MEAN CORPUSCULAR VOLUME 88.4 fL (80-94); MONOCYTES # (AUTO) 0.7 K/uL (0.8-1.0); MONOCYTES % (AUTO) 7.3 % (1.7-9.3); NEUTROPHILS # (AUTO) 7.1 K/uL (1.8-7.7); NEUTROPHILS % (AUTO) 75.8 % (42.2-75.2); PLATELET COUNT (AUTO) 221 K/uL (140-450); RED BLOOD CELL COUNT(AUTO) 3.69 MIL/uL (4.20-5.40); RED CELL DISTRIBUTION WIDTH 16.2 % (11.6-13.7); WHITE BLOOD COUNT (AUTO) 9.3 K/uL (4.8-10.8)
[2017-10-28 17:48] LABS: ANION GAP 12.8 (8-16); CARBON DIOXIDE 28.5 mmol/L (21-32); CHLORIDE 94 mmol/L (98-107); CREATININE 1.1 mg/dL (0.6-1.3); GLUCOSE 125 mg/dL (74-106); POTASSIUM 4.3 mmol/L (3.5-5.1); SODIUM SERUM 131 mmol/L (136-145); UREA NITROGEN, BLOOD 56 mg/dL (7-18)
--- NOTE | 2017-10-28 17:53 | NUR ---
XRAY BY BEDSIDE
[2017-10-28 17:56] LABS: ASPARTATE AMINOTRANSFERASE 16 U/L (15-37); TOTAL BILIRUBIN 0.4 mg/dL (0.0-1.0)
[2017-10-28 18:17] LABS: PROTHROMBIN TIME 11.5 secs (10.8-13.4)
--- NOTE | 2017-10-28 18:32 | NUR ---
awaiting admission. by bedside. no acute distress. will continue to monitor.
[2017-10-28 18:38] VITALS: BP 161/102
[2017-10-28] MEDS ORDERED: NACL 0.9% 1,000 ML IV SCH (18:49)
[2017-10-28] MEDS ORDERED: ONDANSETRON 4 MG/2 ML VIAL IVP PRN (18:50)
[2017-10-28] MEDS ORDERED: HYDROcodone/APAP 7.5/325 MG 1 TAB PO PRN (18:50)
[2017-10-28] MEDS ORDERED: ACETAMINOPHEN 325 MG TAB PO PRN (18:50)
[2017-10-28 19:16] LABS: APPEARANCE,URINE SL CLOUDY (CLEAR); BILIRUBIN,URINE NEGATIVE (NEGATIVE); BLOOD, URINE TRACE-I (NEGATIVE); COLOR,URINE YELLOW (YELLOW); LEUKOCYTE ESTERASE ,URINE 3+ (NEGATIVE); NITRITE, URINE NEGATIVE (NEGATIVE); UGLUCOSE NEGATIVE (NEGATIVE)
--- NOTE | 2017-10-28 19:17 | NUR ---
PT ON BED DELAY DUE TO BED ASSIGNMENT FOR VENT PER NOTARY PUBLIC
--- NOTE | 2017-10-28 19:18 | NUR ---
Pt report given to Castro KONG. Transfer of care at this time.
--- NOTE | 2017-10-28 19:20 | NUR ---
RECEIVED REPORT FROM AM NURSE. PT RESTING IN BED COMFORTABLY. SPO2 98% ON VENT, RR 12 EVEN AND UNLABORED, BP 153/91, HR 118 ALL NEEDS MET AT THIS TIME.
[2017-10-28] MEDS ORDERED: ALBUTEROL SULFATE/IPRATROPIU 3 ML SOL IH PRN ×2 (19:25→20:05)
[2017-10-28 19:36] LABS: CHOL/HDL RATIO 2.1 (1-4.5); FREE T4 (FREE THYROXINE) 1.31 ng/dL (0.76-1.46); MAGNESIUM 2.1 mg/dL (1.8-2.4); PHOSPHORUS 4.7 mg/dL (2.5-4.9); THYROID STIMULATING HORMONE 1.88 uIU/mL (0.34-3.74)
[2017-10-28 19:38] LABS: RBC,URINE 3-10 (FEW) /HPF (0-5); WBC,URINE TOO MANY TO COUNT /HPF (0-5)
[2017-10-28] MEDS ORDERED: amLODIPine 5 MG TAB PO SCH (20:00)
[2017-10-28 20:40] VITALS: BP 135/62
--- NOTE | 2017-10-28 20:40 | NUR ---
PT ARRIVED AT UNIT VIA GURNEY, TRANSFERRED PT TO BED, PT TOLERATED WELL, REPORT RECEIVED FROM ER NURSE YVAN RN, PT STABLE, IV TO L FA 20G SL, PATENT INTACT, PT ON VENT, DUKE IN PLACE DRAINING YELLOW, CLOUDY URINE, GTUBE IN PLACE, PATENT, INTACT. MRSA SWAB TAKEN, PT AT BEDSIDE, CALL LIGHT WITHIN REACH, INITIAL ASSESSMENT DONE, ALL SAFETY PRECAUTION MET, WILL CONTINUE TO MONITOR.
--- NOTE | 2017-10-28 20:45 | NUR ---
Patient will be admitted to care of DR ANN. Admited to TELE. Will go to room 122B. Belongings list completed. Report to DILAN PRUETT AT BEDSIDE.
[2017-10-28] MEDS ORDERED: DILTIAZEM 30 MG TAB GT SCH (21:00)
[2017-10-28] MEDS ORDERED: DOCUSATE SODIUM 100 MG GELCAP PO SCH (21:00)
--- NOTE | 2017-10-28 21:06 | NUR ---
2049 transported pt to room 122. pt being bagged with 100% fio2. pt placed back on the vent with ac 12 vt 500 peep 5 and 28% fio2. sxned pt no secretions at this time. at bedside
[2017-10-28] MEDS: DOCUSATE 100 MG/10 ML UDC GT SCH (21:35)
[2017-10-28] MEDS: ATORVASTATIN 20 MG TAB PO SCH (21:36)
[2017-10-28] MEDS: FERROUS SULFATE 300 MG/5 ML UDC GT SCH (21:36)
[2017-10-28] MEDS: METOPROLOL 50 MG TAB GT SCH (21:36)
[2017-10-28] MEDS: MEMANTINE 10 MG TAB GT SCH (21:36)
--- NOTE | 2017-10-28 21:36 | NUR ---
GAVE DUE MEDICATION, PT TOLERATED WELL, WILL CONTINUE TO MONITOR, CALL LIGHT WITHIN REACH, WILL CONTINUE FREQ CHECKS.
[2017-10-28] MEDS: ALBUTEROL SULFATE/IPRATROPIU 3 ML SOL IH SCH (22:57)
[2017-10-28] MEDS ORDERED: CLINDAMYCIN 600 MG in DEXTROSE 5% 50 ML IV SCH (23:00)
[2017-10-28] MEDS ORDERED: CLINDAMYCIN 600 MG/4 ML VIAL ONE (23:01)
--- NOTE | 2017-10-28 23:30 | NUR ---
PT RESTING IN BED, V/S TAKEN, PT TOLERATED WELL, WILL CONTINUE TO MONITOR CALL LIGHT WITHIN REACH.
[2017-10-29] VITALS (10 sets, daily range): BP systolic 0–139; BP diastolic 0–75
[2017-10-29] MEDS ORDERED: LEVOFLOXACIN 750 MG/D5W PREMIX 150 ML IV SCH
[2017-10-29] MEDS ORDERED: DEXT 5% / NACL 0.9% 500 ML IV SCH (01:00)
--- NOTE | 2017-10-29 01:00 | NUR ---
NOTIFIED DR. TAN REGARDING PT GTUBE SECRETING YELLOW SLIMY SECRETION, STATED TO STOP TUBE FEEDING. WILL CONTINUE WITH ORDERS.
--- NOTE | 2017-10-29 02:10 | NUR ---
TALKED TO DR. TAN REGARDING UNAVAILABILITY OF D5NS. STATED UNDERSTANDING AND SAID IT IS OK TO ADMINISTER D5W INSTEAD
[2017-10-29] MEDS ORDERED: DEXTROSE 5% 1,000 ML IV SCH (02:15)
[2017-10-29] MEDS: ALBUTEROL SULFATE/IPRATROPIU 3 ML SOL IH SCH ×5 (04:09→19:00)
--- NOTE | 2017-10-29 04:10 | NUR ---
CHECKED ON PT, PT RESTING, NO DISTRESS NOTED, CALL LIGHT WITHIN REACH, WILL CONTINUE TO MONITOR.
[2017-10-29] MEDS ORDERED: CLINDAMYCIN 600 MG/4 ML VIAL ONE (04:55)
[2017-10-29] MEDS ORDERED: CLINDAMYCIN 600 MG in DEXTROSE 5% 50 ML IV SCH (05:00)
--- NOTE | 2017-10-29 05:21 | NUR ---
PT LEFT VIA GURNEY TO RADIOLOGY FOR CT SCAN OF HEAD. PT ATTACHED TO TRANSPORT MONITOR, RT AT BEDSIDE. SINDY ACCOMPANIED PT ALONG WITH DILAN PRUETT.
--- NOTE | 2017-10-29 05:57 | NUR ---
0520 TRANSPORTED PT TO [facility] BEING BAGGED.NO INCIDENT OCCURRED. PT PLACED BACK ON VENT SAME SETTINGS
--- NOTE | 2017-10-29 05:58 | NUR ---
PT ARRIVED BACK AT UNIT, RECONNECTED TO VENT, PT STABLE, NO DISTRESS NOTED, CALL LIGHT WITHIN REACH, WILL CONTINUE TO MONITOR.
[2017-10-29] MEDS ORDERED: ALBUTEROL SULFATE/IPRATROPIU 3 ML SOL IH SCH (06:00)
[2017-10-29] MEDS: LEVOTHYROXINE 0.075 MG TAB GT SCH (06:13)
--- NOTE | 2017-10-29 06:59 | NUR ---
RECEIVED PATIENT TRACH PORTEX 7 TO VENT ON SETTINGS: AC 500,12, 28%, +5. AIRWAY SECURE AND PATENT. SUCTIONED MODERATE AMOUNT OF THICK WHITE SECRETIONS. VENT CHECK DONE. VENT PLUGGED INTO RED OUTLET. AMBU BAG AT BEDSIDE. SCHEDULED BREATHING TREATMENT ADMINISTERED. TOLERATED TX WELL, NO ADVERSE SIDE EFFECTS. NO RESPIRATORY DISTRESS NOTED AT THIS TIME. WILL CONTINUE TO MONITOR.
[2017-10-29 07:18] LABS: BASOPHILS # (AUTO) 0.1 K/uL (0.00-0.22); BASOPHILS % (AUTO) 0.6 % (0.0-2.0); EOSINOPHILS # (AUTO) 0.1 K/uL (0-0.4); HEMOGLOBIN 11.5 g/dL (12.0-16.0); LYMPHOCYTES # (AUTO) 1.3 K/uL (2.5-16.5); LYMPHOCYTES % (AUTO) 13.7 % (20.5-51.1); MEAN CORPUSCULAR HEMOGLOBIN 30 pg (27-31); MEAN CORPUSCULAR HGB CONC 34 g/dL (33-37); MEAN CORPUSCULAR VOLUME 88.1 fL (80-94); MONOCYTES # (AUTO) 0.6 K/uL (0.8-1.0); MONOCYTES % (AUTO) 6.6 % (1.7-9.3); NEUTROPHILS # (AUTO) 7.3 K/uL (1.8-7.7); NEUTROPHILS % (AUTO) 78.1 % (42.2-75.2); PLATELET COUNT (AUTO) 196 K/uL (140-450); RED BLOOD CELL COUNT(AUTO) 3.86 MIL/uL (4.20-5.40); RED CELL DISTRIBUTION WIDTH 16.2 % (11.6-13.7); WHITE BLOOD COUNT (AUTO) 9.4 K/uL (4.8-10.8)
--- NOTE | 2017-10-29 07:18 | NUR ---
ENDORSED PT TO DAY SHIFT NURSE LEI. PT STABLE.
--- NOTE | 2017-10-29 07:30 | NUR ---
RECEIVED PT FROM PM NURSE, PT ABLE TO OPEN EYES BUT UNABLE TO FOLLOW COMMANDS. NON VERBAL, TRACH TO VENT WITH SETTING FIO2 28%, VT 500, AC 12, PEEP 5. IV SITE INTACT AND PATENT. PT HAS F/C IN PLACE WITH SMALL AMOUNT OF URINE NOTED. PT UPPER EXTREMITIES ARE CONTRACTED AND STIFF. PT UNABLE TO MOVE ALL HER EXTREMITIES, PT NPO EXCEPT MEDS AT THIS MOMENT, WILL CONTINUE TO MONITOR.
--- NOTE | 2017-10-29 08:10 | NUR ---
ECHOCARDIOGRAM COMPLETED
[2017-10-29] MEDS: PANTOPRAZOLE 40 MG INJ VIAL IVP SCH (08:23)
[2017-10-29] MEDS: METOPROLOL 50 MG TAB GT SCH ×2 (08:24→21:23)
[2017-10-29] MEDS: CARBIDOPA/LEVODOPA 25/100 MG 1 TAB PO SCH ×3 (08:24→16:24)
[2017-10-29] MEDS: LACTOBACILLUS RHAMNOSUS GG 1 EACH CAP PO SCH (08:24)
[2017-10-29] MEDS: DILTIAZEM 30 MG TAB GT SCH ×2 (08:25→21:23)
[2017-10-29] MEDS: MEMANTINE 10 MG TAB GT SCH ×2 (08:25→21:22)
[2017-10-29] MEDS: FERROUS SULFATE 300 MG/5 ML UDC GT SCH (08:26)
[2017-10-29] MEDS: DOCUSATE 100 MG/10 ML UDC GT SCH (08:26)
[2017-10-29 08:58] LABS: CHLORIDE 94 mmol/L (98-107); GLUCOSE 127 mg/dL (74-106); POTASSIUM 4.3 mmol/L (3.5-5.1); SODIUM SERUM 132 mmol/L (136-145); UREA NITROGEN, BLOOD 50 mg/dL (7-18)
[2017-10-29] MEDS ORDERED: VITAMIN A/VITAMIN D OINT 113 GM TUBE TP SCH (09:00)
[2017-10-29] MEDS ORDERED: LISINOPRIL 5 MG TAB PO SCH (09:00)
[2017-10-29] MEDS ORDERED: LEVOTHYROXINE 0.075 MG TAB GT SCH (09:00)
[2017-10-29] MEDS ORDERED: FUROSEMIDE 20 MG/2 ML VIAL IVP SCH (09:00)
[2017-10-29] MEDS ORDERED: ENOXAPARIN 30 MG/0.3 ML SYR SUBQ SCH (09:00)
--- NOTE | 2017-10-29 09:00 | NUR ---
DUE MEDS GIVEN, PT TOLERATED WELL.
[2017-10-29 09:10] LABS: CARBON DIOXIDE 27.3 mmol/L (21-32)
--- NOTE | 2017-10-29 09:25 | NUR ---
VENT CHECK DONE. NO RESPIRATORY DISTRESS NOTED. WILL CONTINUE TO MONITOR.
[2017-10-29 09:59] LABS: PHOSPHORUS 4.7 mg/dL (2.5-4.9)
--- NOTE | 2017-10-29 11:07 | NUR ---
PATIENT HAS BEEN SCREENED AND CATEGORIZED HIGH NUTRITION RISK. PATIENT WILL BE SEEN WITHIN 1-2 DAYS OF ADMISSION. 10/29/17 10/30/[address]
--- NOTE | 2017-10-29 11:27 | NUR ---
VENT CHECK DONE. SCHEDULED BREATHING TREATMENT ADMINISTERED. PATIENT TOLERATED TX WELL, NO ADVERSE SIDE EFFECTS. NO RESPIRATORY DISTRESS NOTED AT THIS TIME. WILL CONTINUE TO MONITOR.
--- NOTE | 2017-10-29 12:00 | NUR ---
PT RESTING IN BED, UNABLE TO FOLLOW COMMANDS, NO S/S OF RESPIRATORY DISTRESS NOTED.
[2017-10-29] MEDS ORDERED: FUROSEMIDE 40 MG/4 ML VIAL IVP SCH (12:14)
[2017-10-29] MEDS: CLINDAMYCIN PHOS 600MG/D5W PM 50 ML IV SCH ×2 (12:19→21:22)
[2017-10-29] MEDS ORDERED: MAGNESIUM HYDROXIDE 2400 MG/30 ML UDC GT PRN (12:25)
--- NOTE | 2017-10-29 13:00 | NUR ---
HHN NOT GIVEN AT THIS TIME. MEDICATION GIVEN AT 1116, SEE RT DOCUMENTATION. CHANGED DOSE FREQUENCY TO [id number].
[2017-10-29] MEDS: NACL 0.9% 1,000 ML IV SCH (13:13)
--- NOTE | 2017-10-29 13:19 | NUR ---
vent check, no sxn required at this time airway is patent and pt is sleeping with no signs of distress noted at this time
[2017-10-29] MEDS ORDERED: MAGNESIUM HYDROXIDE 2400 MG/30 ML UDC GT SCH (13:30)
--- NOTE | 2017-10-29 14:21 | NUR ---
10/29/17 RD INITIAL ASSESSMENT COMPLETED PLEASE REFER TO NUTRITION ASSESSMENT UNDER CARE ACTIVITY FOR ESTIMATED NUTRITIONAL NEEDS. 1. RECOMMEND INCREASING RATE OF GLUCERNA TO 55 ML/HR FROM 45 ML/HR. 55 ML/HR WILL PROVIDE 1320 ML, 1584 KCAL, AND 79 GM PROTEIN, MEETING 100% OF ESTIMATED NEEDS. 2. RD TO FOLLOW-UP 2-3 DAYS, HIGH RISK VALERIE ROCA, RD
--- NOTE | 2017-10-29 14:51 | NUR ---
Production Machine Tender Note: Per Herberth from 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 Herberth stated patient does not have an existing Advance Directive. I called patient's Efrain Bruno to inquire if he would like patient to return to [facility] once physician determines patient is medically stable, no answer, voicemail states it is full, unable to accept new messages.
[2017-10-29] MEDS: METOCLOPRAMIDE 10 MG/10 ML SYRP UDC GT SCH (16:24)
[2017-10-29] MEDS: RIVAROXABAN 15 MG TAB GT SCH (16:28)
--- NOTE | 2017-10-29 16:37 | NUR ---
STARTED TUBE FEEDING, PLACEMENT CHECKED.
--- NOTE | 2017-10-29 17:00 | NUR ---
PER DR. MONSIVAIS, GIVE TUBE FEEDING RATE AT 10 MLS/HR, WILL CARRY OUT
--- NOTE | 2017-10-29 19:10 | NUR ---
REPORT GIVEN TO PM NURSE, PT VITALS STABLE AT THIS MOMENT.
--- NOTE | 2017-10-29 19:10 | NUR ---
RECEIVED BEDSIDE REPORT FROM DAY SHIFT NURSE LEI, PT RESTING IN BED, ON TRAC TO VENT, NO SOB, RR ARE EVEN AND UNLABORED, IV IN LEFT FA 20 G, RUNNING AT 30 ML/HR, DUKE IN PLACE DRAINING YELLOW URINE WITH SEDIMENT, G-TUBE DRAINING MUCUS BUT PATENT AND INTACT, TUBE FEEDING RUNNING, PT TOLERATED WELL, WILL CONTINUE TO MONITOR MUCUS, NO SIGNS OF DISTRESS, ALL SAFETY PRECAUTIONS IN PLACE, WILL CONTINUE TO MONITOR, WILL START FREQ CHECKS. UPDATED BOARD.
--- NOTE | 2017-10-29 20:25 | NUR ---
PT G-TUBE DRAINING BLACK, THICK, STICKY MUCUS. DRESSING CHANGED, DR LUCERO NOTIFIED OF G-TUBE AND COMMUNICATED TO CONTINUE WITH ALL DUE MEDICATIONS AND TO STOP TUBE FEEDINGS. DR LUCERO SEEN PT AND COMMUNICATED THAT DAY SHIFT RESIDENT WILL DUE G-TUBE REPLACEMENT. WILL CONTINUE TO MONITOR AND COMMUNICATE ANY CHANGE OF CONDITION. CALL LIGHT WITHIN REACH, BED IN LOWEST POSITION.
[2017-10-29] MEDS ORDERED: SODIUM PHOSPHATE 118 ML ENEM RC SCH (20:30)
[2017-10-29] MEDS: ATORVASTATIN 20 MG TAB PO SCH (21:22)
--- NOTE | 2017-10-29 21:32 | NUR ---
DR MONSIVAIS ORDER SOAP SUDS ENEMA. DR LUCERO ORDER FLEET ENEMA. DR LUCERO COMMUNICATED TO GIVE SOAP SUDS EDEMA. GAVE SOAP SUDS ENEMA. SMALL AMOUNTS OF BLACK STOOL SEEN. WILL CONTINUE TO MONITOR, CALL LIGHT WITHIN REACH.
--- NOTE | 2017-10-29 23:35 | NUR ---
PT HAD MODERATE TARRY, STICKY, BLACK, BM. CHANGED PT, PROVIDED CARA CARE. COMMUNICATED WITH DR LUCERO ABOUT BM. WILL CONTINUE TP MONITOR CALL LIGHT WITHIN REACH.
[2017-10-30] VITALS (11 sets, daily range): BP systolic 0–143; BP diastolic 0–81
--- NOTE | 2017-10-30 00:06 | NUR ---
FLEET ENEMA WAS NOT GIVEN BECAUSE SOUP DAVID ENEMA WAS ALREADY GIVEN, AND PT WAS ABLE TO DO A BM. DR. BRITNEY MCMILLAN.
--- NOTE | 2017-10-30 01:23 | NUR ---
PT SLEEPING IN BED, NO SIGNS OF PAIN OR DISTRESS. CALL LIGHT WITHIN REACH, BED IN LOWEST POSITION POSSIBLE. WILL CONTINUE FREQ CHECKS.
--- NOTE | 2017-10-30 03:33 | NUR ---
PT RESTING IN BED, SLIGHT SECRETIONS HEARD, SUCTIONED 2X, PT TOLERATED WELL PT NO LONGER IN DISTRESS, V/S TAKEN, PT TOLERATED WELL, CALL LIGHT WITHIN REACH, WILL CONTINUE TO MONITOR.
[2017-10-30] MEDS: CLINDAMYCIN PHOS 600MG/D5W PM 50 ML IV SCH ×3 (04:02→20:56)
--- NOTE | 2017-10-30 05:15 | NUR ---
REPOSITIONED ON RIGHT SIDE FOR COMFORT, NO SIGNS OF DISTRESS, CALL LIGHT WITHIN REACH, WILL CONTINUE TO MONITOR.
[2017-10-30] MEDS: METOCLOPRAMIDE 10 MG/10 ML SYRP UDC GT SCH ×2 (06:34→12:32)
[2017-10-30] MEDS: LEVOTHYROXINE 0.075 MG TAB GT SCH (06:35)
[2017-10-30 06:58] LABS: BASOPHILS # (AUTO) 0.1 K/uL (0.00-0.22); BASOPHILS % (AUTO) 0.5 % (0.0-2.0); EOSINOPHILS # (AUTO) 0.1 K/uL (0-0.4); HEMOGLOBIN 11.2 g/dL (12.0-16.0); LYMPHOCYTES # (AUTO) 1.3 K/uL (2.5-16.5); LYMPHOCYTES % (AUTO) 13.8 % (20.5-51.1); MEAN CORPUSCULAR HEMOGLOBIN 30 pg (27-31); MEAN CORPUSCULAR HGB CONC 34 g/dL (33-37); MEAN CORPUSCULAR VOLUME 86.9 fL (80-94); MONOCYTES # (AUTO) 0.8 K/uL (0.8-1.0); MONOCYTES % (AUTO) 7.9 % (1.7-9.3); NEUTROPHILS # (AUTO) 7.4 K/uL (1.8-7.7); NEUTROPHILS % (AUTO) 76.8 % (42.2-75.2); PLATELET COUNT (AUTO) 212 K/uL (140-450); RED CELL DISTRIBUTION WIDTH 16.1 % (11.6-13.7); WHITE BLOOD COUNT (AUTO) 9.7 K/uL (4.8-10.8)
--- NOTE | 2017-10-30 07:10 | NUR ---
ENDORSED PT TO DAY SHIFT NURSE, JAI, PT STABLE AT THIS .
--- NOTE | 2017-10-30 07:15 | NUR ---
RECEIVED BEDSIDE REPORT AT BEDSIDE. PT RESTING IN BED, ON TRACH TO VENT, NO SOB, RR ARE EVEN AND UNLABORED, IV IN LEFT FA 20 G, RUNNING AT 30 ML/HR, DUEK IN PLACE DRAINING YELLOW URINE WITH SEDIMENT, G-TUBE IN PLACE WITH MUCUS DRAINING ON THE SITE. G-TUBE PATENT AND FLUSHES WITH NO RESISTANCE. 5ML OF RESIDUAL NOTED.TUBE FEEDING ON HOLD.NO S/S OF DISTRESS, ALL SAFETY PRECAUTIONS IN PLACE, WILL CONTINUE TO MONITOR.
[2017-10-30] MEDS: ALBUTEROL SULFATE/IPRATROPIU 3 ML SOL IH SCH ×3 (07:30→19:38)
[2017-10-30 07:45] LABS: ANION GAP 13.2 (8-16); CARBON DIOXIDE 29.8 mmol/L (21-32); CHLORIDE 94 mmol/L (98-107); CREATININE 1.1 mg/dL (0.6-1.3); GLUCOSE 141 mg/dL (74-106); SODIUM SERUM 133 mmol/L (136-145); UREA NITROGEN, BLOOD 39 mg/dL (7-18)
[2017-10-30 07:55] LABS: MAGNESIUM 2.2 mg/dL (1.8-2.4); PHOSPHORUS 4.2 mg/dL (2.5-4.9)
[2017-10-30] MEDS: DILTIAZEM 30 MG TAB GT SCH ×2 (09:00→20:54)
[2017-10-30] MEDS: MAGNESIUM HYDROXIDE 2400 MG/30 ML UDC GT SCH (09:37)
[2017-10-30] MEDS: CARBIDOPA/LEVODOPA 25/100 MG 1 TAB PO SCH ×3 (09:38→16:42)
[2017-10-30] MEDS: MEMANTINE 10 MG TAB GT SCH ×2 (09:38→20:55)
[2017-10-30] MEDS: PANTOPRAZOLE 40 MG INJ VIAL IVP SCH (09:39)
[2017-10-30] MEDS: LACTOBACILLUS RHAMNOSUS GG 1 EACH CAP PO SCH (09:39)
[2017-10-30] MEDS: METOPROLOL 50 MG TAB GT SCH ×2 (09:39→20:55)
--- NOTE | 2017-10-30 11:45 | NUR ---
ORAL CARE GIVEN. NO S/S OF DISTRESS NOTED
[2017-10-30] MEDS: NACL 0.9% 1,000 ML IV SCH (13:00)
[2017-10-30] MEDS ORDERED: MAGNESIUM CITRATE 300 ML BTL PO SCH (13:00)
[2017-10-30] MEDS ORDERED: METOCLOPRAMIDE 10 MG/2 ML INJ VIAL IVP SCH (14:10)
[2017-10-30] MEDS: METOCLOPRAMIDE 10 MG/2 ML INJ VIAL IVP SCH ×2 (14:30→20:56)
--- NOTE | 2017-10-30 15:45 | NUR ---
PATIENT HAD A BM. STOOL LOOSE/SOFT, BLACK AND LARGE IN AMOUNT. DR MONSIVAIS IS AWARE. PATIENT CLEANED AND REPOSITIONED FOR COMFORT. PT TOLERATED WELL. WILL CONTINUE TO MONITOR
[2017-10-30] MEDS: RIVAROXABAN 15 MG TAB GT SCH (16:45)
--- NOTE | 2017-10-30 16:45 | NUR ---
MADE DR MONSIVAIS AWARE OF PATIENT'S BP OF 88/50. PATIENT'S FAMILY PRESENT IN THE ROOM. SPOKE TO PATIENT'S DAUGHTER AND AND UPDATED THEM ABOUT THE PATIENT'S STATUS
--- NOTE | 2017-10-30 16:57 | NUR ---
CONTINUED TO MONITOR PT ON VENT WITH SETTINGS CHARTED BREATH SOUNDS PRESENT BILAT PT WITH MIN AMT OFF WHITE SECS TRACH SITE SECURE AMBU BAG AT BEDSIDE VENT PLUGGED INTO RED OUTLET
[2017-10-30] MEDS ORDERED: NACL 0.9% 1,000 ML IV ONE (17:35)
[2017-10-30] MEDS: DEXT 5% /NACL 0.9% 1,000 ML IV SCH ×2 (17:45→19:44)
--- NOTE | 2017-10-30 19:20 | NUR ---
PATIENT REPORT GIVEN AT BEDSIDE. PATIENT ENDORSED IN STABLE CONDITION
--- NOTE | 2017-10-30 19:37 | NUR ---
RECEIVED FROM AM R N IN BED SLEEPING. NO SOB. WITH TRACH TO VENT. 100 % 02 SAT. SUCTIONED BY RESPIRATORY THERAPIST AT THIS TIME .GT IN PLACE AND NO NOTED LEAKING. 10 ML. RESIDUAL. DUKE CATHETER IN PLACE AND DRAINING WELL WITH YELLOW URINE. TURNED TO SIDES Q 2H. PT. IMMOBILE. ISOLATION PRECAUTIONS IN PLACE. IVF SITE TO LFA . NO NFILTRATION NOTED. NEEDS WILL BE ANTICIPATED AND WILL BE MET.
[2017-10-30] MEDS: ATORVASTATIN 20 MG TAB PO SCH (20:55)
--- NOTE | 2017-10-30 21:25 | NUR ---
TALKED WITH RESIDENT MD TAN AND DISCUSSED WITH HER STATUS OF GT FEEDING RATE. "NO, LEAVE IT IS WHICH IS AT 10 ML/H AND WE WILL WAIT FOR MD IN A.M. ORDERS. SPOUSE AT BEDSIDE VISITING AT THIS TIME. CALL LIGHT WITH IN REACH. NO COMPLAINTS DONE BY SPOUSE. ENCOURAGED TO CALL ME FOR ANY HELP HE MAY NEED AT THIS TIME OR ANY QUESTIONS HE MAY HAVE. TELEMETRY MONITORING.
[2017-10-31] VITALS (11 sets, daily range): BP systolic 0–134; BP diastolic 0–93
[2017-10-31] MEDS ORDERED: LEVOFLOXACIN 750 MG/D5W PREMIX 150 ML IV SCH
--- NOTE | 2017-10-31 | NUR ---
TURNED TO SIDES BY CARTON STENCILER AND ME. NO LEAKING NOTED AT THIS TIME. NEEDS ANTICIPATED AND MET. TOTAL CARE.
--- NOTE | 2017-10-31 01:11 | NUR ---
FEEDING STOPPED RT PT.S GT SITE LEAKING AT THIS TIME AND RESIDENT MD ON DUTY SEEN IT. ORDERED TO STOP FEEDING FOR NOW.
--- NOTE | 2017-10-31 01:12 | NUR ---
PT. TURNED TO SIDES AND KEPT CLEAN AND DRY. RT IN TO GIVE BREATHING TREATMENTS ORDERED. SUCTIONED BY RT. TELEMETRY MONITORING.
--- NOTE | 2017-10-31 01:14 | NUR ---
BLOOD SUGAR CHECKED ORDERED BY RESIDENT MD . BLOOD SUGAR PER FINGERSTICK IS 168 MG/DL PER FINGERSTICK. NO FURTHER ORDERS GIVEN . AWARE.
--- NOTE | 2017-10-31 02:44 | NUR ---
TURNED TO SIDES Q 2H. RESPIRATORY IN HERE TO CHECK ON PT. NO SOB. 100 % 02 SAT. TRACH TO VENT. TOTAL CARE.
--- NOTE | 2017-10-31 04:00 | NUR ---
DUKE CATHETER LEAKING A LITTLE BIT. ADDED MORE WATER TO BALLOON. DUKE CATHETER CARE RENDERED. TURNED TO SIDES Q 2H. TOTAL CARE. VENT TO TRACH. 02 SAT AT 100 %. AFEBRILE.
[2017-10-31] MEDS: CLINDAMYCIN PHOS 600MG/D5W PM 50 ML IV SCH ×3 (04:35→20:23)
[2017-10-31] MEDS: METOCLOPRAMIDE 10 MG/2 ML INJ VIAL IVP SCH ×3 (04:35→20:42)
[2017-10-31] MEDS: LEVOTHYROXINE 0.075 MG TAB GT SCH (05:18)
--- NOTE | 2017-10-31 06:26 | NUR ---
PT. BLOOD PRESSURE WITH IN NORMAL LIMITS . NO SOB. 100 % 02 SAT. NEEDS ANTICIPATED AND MET. AM PERSONAL HYGIENE CARE DONE. KEPT CLEAN, DRY AND COMFORTABLE. NPO EXCEPT MEDICATIONS .
[2017-10-31 06:27] LABS: BASOPHILS % (AUTO) 0.1 % (0.0-2.0); EOSINOPHILS # (AUTO) 0.2 K/uL (0-0.4); EOSINOPHILS % (AUTO) 1.6 % (0.0-4.0); HEMATOCRIT 31.3 % (36-48); HEMOGLOBIN 10.5 g/dL (12.0-16.0); LYMPHOCYTES # (AUTO) 1.2 K/uL (2.5-16.5); LYMPHOCYTES % (AUTO) 11.9 % (20.5-51.1); MEAN CORPUSCULAR HEMOGLOBIN 30 pg (27-31); MEAN CORPUSCULAR HGB CONC 34 g/dL (33-37); MEAN CORPUSCULAR VOLUME 88.8 fL (80-94); MONOCYTES # (AUTO) 0.8 K/uL (0.8-1.0); MONOCYTES % (AUTO) 7.8 % (1.7-9.3); NEUTROPHILS # (AUTO) 7.9 K/uL (1.8-7.7); NEUTROPHILS % (AUTO) 78.6 % (42.2-75.2); PLATELET COUNT (AUTO) 197 K/uL (140-450); RED BLOOD CELL COUNT(AUTO) 3.53 MIL/uL (4.20-5.40); RED CELL DISTRIBUTION WIDTH 16.5 % (11.6-13.7); WHITE BLOOD COUNT (AUTO) 10.1 K/uL (4.8-10.8)
[2017-10-31 06:35] LABS: ANION GAP 13.1 (8-16); CARBON DIOXIDE 28.1 mmol/L (21-32); CHLORIDE 97 mmol/L (98-107); CREATININE 1.4 mg/dL (0.6-1.3); GLUCOSE 140 mg/dL (74-106); POTASSIUM 3.2 mmol/L (3.5-5.1); SODIUM SERUM 135 mmol/L (136-145); UREA NITROGEN, BLOOD 41 mg/dL (7-18)
--- NOTE | 2017-10-31 07:00 | NUR ---
RECIVED PT ON VENT WITH SETTINGS CHARTED BREAH SOUNDS PRESENT BILAT CLEAR SXN PT WITH MIN AMT OFF WHITE SECS TRAVH SITE SECURE AMBU BAG AT BEDSIDE VENT PLUGGED INTO RED OUTLET WILL CONTINUE TO MONITOR PT ON VENT
--- NOTE | 2017-10-31 07:10 | NUR ---
RECEIVED BEDSIDE REPORT AT BEDSIDE. PT RESTING IN BED, ON TRACH TO VENT, NO SOB, RR ARE EVEN AND UNLABORED. DUKE IN PLACE DRAINING YELLOW URINE WITH SEDIMENT, G-TUBE IN PLACE WITH MUCUS DRAINING ON THE SITE. G-TUBE PATENT AND FLUSHES WITH NO RESISTANCE. 10ML OF RESIDUAL NOTED.TUBE FEEDING ON HOLD.NO S/S OF DISTRESS, ALL SAFETY PRECAUTIONS IN PLACE, WILL CONTINUE TO MONITOR.
[2017-10-31] MEDS: ALBUTEROL SULFATE/IPRATROPIU 3 ML SOL IH SCH ×3 (07:23→20:35)
[2017-10-31] MEDS: CARBIDOPA/LEVODOPA 25/100 MG 1 TAB PO SCH ×3 (09:05→17:21)
[2017-10-31] MEDS: LACTOBACILLUS RHAMNOSUS GG 1 EACH CAP PO SCH (09:05)
[2017-10-31] MEDS: METOPROLOL 50 MG TAB GT SCH ×2 (09:05→20:25)
[2017-10-31] MEDS: MEMANTINE 10 MG TAB GT SCH ×2 (09:05→20:26)
--- NOTE | 2017-10-31 09:05 | NUR ---
PER JOSEE VINES TO USE G-TUBE FOR MED ADMINISTRATION. LEAK NOTED ON THE G-TUBE SITE. 10ML RESIDUAL NOTED.
[2017-10-31] MEDS: FERROUS SULFATE 300 MG/5 ML UDC GT SCH (09:06)
[2017-10-31] MEDS: MAGNESIUM HYDROXIDE 2400 MG/30 ML UDC GT SCH (09:06)
[2017-10-31] MEDS: PANTOPRAZOLE 40 MG INJ VIAL IVP SCH (09:13)
[2017-10-31] MEDS: DILTIAZEM 30 MG TAB GT SCH ×2 (09:13→20:25)
--- NOTE | 2017-10-31 09:13 | NUR ---
PER DR MONSIVAIS, OK TO TO ADMINISTER CARDIZEM WITH BP 113/54
[2017-10-31] MEDS ORDERED: MAGNESIUM CITRATE 300 ML BTL PO SCH (10:15)
--- NOTE | 2017-10-31 10:15 | NUR ---
IN LINE ON THE LEFT ARM IS INFILTRATED. NEW LINE STARTED ON THE RIGHT FOREARM 22 GAUGE. ORAL CARE GIVEN. PATIENT TOLERATED WELL. WILL CONTINUE TO MONITOR Addendum: 10/31/17 at 1049 by Simon Whitney RN IV LINE ON THE LEFT ARM IS INFILTRATED.
[2017-10-31] MEDS: KCL 20 MEQ/WATER INJ PREMIX 100 ML IV SCH ×2 (10:21→12:08)
--- NOTE | 2017-10-31 12:15 | NUR ---
PATIENT SEEN BY DR TADEO. IS AWARE OF THE LEAK IN THE PATIENT'S G-TUBE SITE. ORDERS TO INSERT NGT
--- NOTE | 2017-10-31 12:58 | NUR ---
PATIENT HAD A BM. STOOL BLACK, LOOSE, SOFT AND MODERATE IN AMOUNT. PERINEAL CARE GIVEN. PATIENT TURNED AND REPOSITIONED FOR COMFORT. WILL CONTINUE TO MONITOR
[2017-10-31] MEDS: POLYETHYLENE GLYCOL 17 GM/PKT GT SCH ×2 (13:00→17:00)
--- NOTE | 2017-10-31 14:51 | NUR ---
10/31/17 RD FOLLOW UP COMPLETED PLEASE REFER TO NUTRITION PROGRESS NOTE UNDER CARE ACTIVITY FOR ESTIMATED NUTRITIONAL NEEDS. 1. CONTINUE NPO DIET TOLERATED 2. WHEN MEDICALLY APPROPRIATE, CONSIDER ADVANCING NUTRITION SUPPORT TO GLUCERNA 1.2 @50ML/H WITH 100ML WATER FLUSH Q 4H. TF WILL PROVIDE 1440 KCAL (110% ESTIMATED CALORIE NEEDS), 72 GM PROTEIN (92% ESTIMATED PROTEIN NEEDS), AND 1366 ML FLUID (105% ESTIMATED FLUID NEEDS) 3. RD TO FOLLOW-UP 2-3 DAYS, HIGH RISK VALERIE ROCA RD
--- NOTE | 2017-10-31 16:20 | NUR ---
FLEET ENEMA ADMINISTERED PER DR MONSIVAIS'S ORDER. WILL CONTINUE TO MONITOR
--- NOTE | 2017-10-31 17:00 | NUR ---
CONTINUED TO MONITOR PT ON VENT WITH SETTINGS CHARTED BREATH SOUNDS PRESENT BILAT FAIRLY CLEAR SXN PT WITH MIN AMT OFF WHITE SECS AMBU BAG AT BEDSIDE VENT PLUGGED INTO RED OUTLET
[2017-10-31] MEDS: RIVAROXABAN 15 MG TAB GT SCH (17:22)
--- NOTE | 2017-10-31 18:30 | NUR ---
PATIENT HAD BM. STOOL BLACK, LOOSE/SOFT AND MODERATE IN AMOUNT. PATIENT CLEANED AND REPOSITIONED FOR COMFORT. PATIENT TOLERATED WELL. PATIENT'S DAUGHTER PRESENT IN THE ROOM
--- NOTE | 2017-10-31 19:40 | NUR ---
PATIENT REPORT GIVEN AT BEDSIDE. PATIENT ENDORSED IN STABLE CONDITION
--- NOTE | 2017-10-31 19:41 | NUR ---
RECEIVED PT FROM SUSANA RN PT NONVERBAL HOB 30 DEGREE TRACH TOVENT TV 500 ,FIO28% RR 14 PEEP 5 NOT SOB NOTED TRACH SUCTIONED NECESSARY G TUBE IN LACE WAITING FOR C ABD THEY WILL PICK HER UP AT 2034 RESP THERAPY AT BED SIDE RELATIVES AT BED SIDE DUKE CATH DRAINING WELL DARK NATALIE URINE INITIAL ASSESSMENT DONE
[2017-10-31] MEDS: ATORVASTATIN 20 MG TAB PO SCH (20:39)
--- NOTE | 2017-10-31 20:40 | NUR ---
DR KATHLEEN Aponte IS HERE AND SEE THE PT
--- NOTE | 2017-10-31 21:10 | NUR ---
PT LEAVING TO CT ABD RESP THERAPY IS HERE AND TECH CT PT IS TAKEN TO THE TEST NOT SOB NOTED
--- NOTE | 2017-10-31 21:35 | NUR ---
PT CAME BACK FROM CT ABD/PELVIS NOT SOB NOTED RESP THERAPY ASSISTING THE PT
--- NOTE | 2017-10-31 22:30 | NUR ---
THE RESIDENT DR JANE IS NOTIFY THAT CT ABD/PELVIS REPORT IS READY AND ORDER TO FOLLOW
--- NOTE | 2017-11-01 | NUR ---
HOB 30 DEGREE ORAL CARE GIVEN WITH VAP KIT NOT SOB NOTED REPOSITIONED TRACH KTO VENT REMAIN SAME SETTING
--- NOTE | 2017-11-01 02:00 | NUR ---
PT REPOSITIONED Q2H AND SUCTIONED NECESSARY GREENISH LIQUID DRAINING FOR NG TUBE PT AN AFIB
[2017-11-01] MEDS: DEXT 5% /NACL 0.9% 1,000 ML IV SCH (03:50)
[2017-11-01 04:00] VITALS: BP 126/72
--- NOTE | 2017-11-01 04:00 | NUR ---
SPONGE BATH GIVEN LINEN CHANGED REPOSITIONED Q2H DUKE CATH DRAINING DARK NATALIE COLOR URINE PT AFILB
[2017-11-01] MEDS: CLINDAMYCIN PHOS 600MG/D5W PM 50 ML IV SCH ×2 (04:13→12:10)
[2017-11-01] MEDS: METOCLOPRAMIDE 10 MG/2 ML INJ VIAL IVP SCH ×3 (04:14→21:01)
[2017-11-01] MEDS: LEVOTHYROXINE 0.075 MG TAB GT SCH (05:42)
--- NOTE | 2017-11-01 06:05 | NUR ---
PT REPOSITIONED, TRACH TO VENT REMAIN SAME SETTING NOT SOB NOTED PT TOLERATED, PT HAS BEEN SUCTIONED NECESSARY RESP THERAPY AT BED SIDE
[2017-11-01 06:33] LABS: BASOPHILS % (AUTO) 0.2 % (0.0-2.0); EOSINOPHILS # (AUTO) 0.1 K/uL (0-0.4); EOSINOPHILS % (AUTO) 1.4 % (0.0-4.0); HEMATOCRIT 30.7 % (36-48); HEMOGLOBIN 10.2 g/dL (12.0-16.0); LYMPHOCYTES # (AUTO) 1.2 K/uL (2.5-16.5); LYMPHOCYTES % (AUTO) 15.4 % (20.5-51.1); MEAN CORPUSCULAR HEMOGLOBIN 30 pg (27-31); MEAN CORPUSCULAR HGB CONC 33 g/dL (33-37); MEAN CORPUSCULAR VOLUME 89.4 fL (80-94); MONOCYTES # (AUTO) 0.7 K/uL (0.8-1.0); NEUTROPHILS # (AUTO) 5.8 K/uL (1.8-7.7); PLATELET COUNT (AUTO) 182 K/uL (140-450); RED BLOOD CELL COUNT(AUTO) 3.43 MIL/uL (4.20-5.40); RED CELL DISTRIBUTION WIDTH 16.3 % (11.6-13.7); WHITE BLOOD COUNT (AUTO) 7.9 K/uL (4.8-10.8)
[2017-11-01 07:11] LABS: ANION GAP 14.5 (8-16); CARBON DIOXIDE 25.7 mmol/L (21-32); CHLORIDE 100 mmol/L (98-107); CREATININE 1.1 mg/dL (0.6-1.3); GLUCOSE 156 mg/dL (74-106); POTASSIUM 3.2 mmol/L (3.5-5.1); SODIUM SERUM 137 mmol/L (136-145); UREA NITROGEN, BLOOD 30 mg/dL (7-18)
[2017-11-01 07:16] LABS: MAGNESIUM 2.3 mg/dL (1.8-2.4); PHOSPHORUS 2.9 mg/dL (2.5-4.9)
--- NOTE | 2017-11-01 07:26 | NUR ---
PT ON STABLE CONDITION IS ENDORSED TO MARY RN FOR CONTINUITY OF CARE
--- NOTE | 2017-11-01 07:27 | NUR ---
RECEIVED REPORT FROM STREET FLUSHER DRIVER NURSE AT BEDSIDE, PT IS LETHARGIC, RESPOND TO PAINFUL STIMULI, APHASIC, UNABLE TO FOLLOW COMMANDS AND MADE NEEDS KNOWN, TRACH TO VENT WITH SETTING FIO2 28, R 12, TV500 PEEP 5, NO S/S OF DISTRESS, RHONCHI LUNG SOUNDS MARK., A-FIB ON TELE MONITOR, ROUND SOFT ABDOMEN WITH ACTIVE BOWEL SOUNDS, GT IN PLACE, NPO EXCEPT MEDS AT THIS TIME, 0ML RESIDUES, NGT TO RIGHT NARES, PATENT, F/C IN PLACE WITH CLEAR YELLOW URINE VIA GRAVITY, SEVERE WEAKNESS NOTED, SKIN IS INTACT, WARM AND DRY TO TOUCH, IV SITE TO RIGHT FOREARM,22GA, PATENT, RUNNING NS AT 60ML/HR, VSS, FLACC 0. PLACED PT AT COMFORT POSITION, SAFETY MEASURE AND SEIZURE PRECAUTION IN PLACE, CALL LIGHT WITHIN REACH, WILL CONTINUE TO MONITOR.
[2017-11-01] MEDS: ALBUTEROL SULFATE/IPRATROPIU 3 ML SOL IH SCH ×3 (07:34→19:31)
--- NOTE | 2017-11-01 07:41 | NUR ---
RECEIVED TRACH PT WITH A PORTEX 7 TRACH ON VENT. SETTINGS AC 12, VT 500, PEEP 5 AND FIO2 28%. PT SUCTIONED OBTAINED SMALL AMOUNT OF THICK WHITE SECRETIONS, AIRWAY IS PATENT AND TRACH IS SECURE. PT IS NOT SOB AND NOT IN RESPIRATORY DISTRESS. PT OPENS EYES BUT IS NOT ALERT. VENT IS PLUGGED INTO A RED OUTLET WITH ALARMS ON AND FUNCTIONING. WILL CONTINUE TO MONITOR.
[2017-11-01 08:00] VITALS: BP 136/94
[2017-11-01] MEDS: PANTOPRAZOLE 40 MG INJ VIAL IVP SCH (08:34)
[2017-11-01] MEDS: DILTIAZEM 30 MG TAB GT SCH ×2 (08:34→21:00)
[2017-11-01] MEDS: MEMANTINE 10 MG TAB GT SCH ×2 (08:36→21:00)
[2017-11-01] MEDS: LACTOBACILLUS RHAMNOSUS GG 1 EACH CAP GT SCH (08:36)
[2017-11-01] MEDS: METOPROLOL 50 MG TAB GT SCH (08:37)
[2017-11-01] MEDS: FLUCONAZOLE 100 MG TAB GT SCH (08:37)
[2017-11-01] MEDS: CARBIDOPA/LEVODOPA 25/100 MG 1 TAB PO SCH ×3 (08:37→16:25)
[2017-11-01] MEDS: MAGNESIUM HYDROXIDE 2400 MG/30 ML UDC GT SCH (08:38)
[2017-11-01] MEDS: POLYETHYLENE GLYCOL 17 GM/PKT GT SCH ×3 (08:39→16:25)
[2017-11-01] MEDS ORDERED: FLUCONAZOLE 100 MG TAB PO SCH (09:00)
--- NOTE | 2017-11-01 09:30 | NUR ---
SCHEDULED MEDICATION GIVEN VIA GT, PT TOLERATED WELL.
--- NOTE | 2017-11-01 11:00 | NUR ---
TUBE FEEDING RESTARTED ORDERED, WILL CONTINUE TO MONITOR.
[2017-11-01 12:00] VITALS: BP 148/80
--- NOTE | 2017-11-01 12:00 | NUR ---
NO CHANGE OF CONDITION AT THIS TIME, VSS, FLACC 0, ORAL CARE PROVIDED, POSITION CHANGED FOR OFF LOAD PRESSURE.
[2017-11-01] MEDS ORDERED: KCL 20 MEQ/WATER INJ PREMIX 200 ML IV SCH (12:35)
--- NOTE | 2017-11-01 13:39 | NUR ---
Shipping Team Leader Note: I faxed patient's clinical information to [facility]. I called and spoke with patient's Efrain Damion (Angolan speaking). Per Efrain, he would like patient to return to [facility] upon discharge.
--- NOTE | 2017-11-01 14:47 | NUR ---
Extrusion Press Operator Note: Per Herberth from [facility] , they received patient's clinical information and they will review it and call me back to provide me with room number.
--- NOTE | 2017-11-01 15:47 | NUR ---
Punching Machine Operator Note: Per Herberth from [facility] , they do not have an isolation bed for patient at their facility at this time.
[2017-11-01 16:00] VITALS: BP 152/111
--- NOTE | 2017-11-01 16:00 | NUR ---
NO CHANGE OF CONDITION AT THIS TIME, PT'S AT BEDSIDE, WOULD LIKE TO KNOW THE CT RESULT, DR. NEAL NOTIFIED, WILL COME TO TALK TO THE . ORAL CARE PROVIDED, NGT REMOVED PER DR. NEAL DUE TO PT TOLERATED WELL WITH GT FEEDING AT THIS TIME, NO NEED NGT.
[2017-11-01] MEDS: RIVAROXABAN 15 MG TAB GT SCH (16:25)
--- NOTE | 2017-11-01 17:31 | NUR ---
PT REMAINS ON DOCUMENTED VENT SETTINGS. TRACH REMAINS SECURE WITH A PATENT AIRWAY. PT SUCTIONED OBTAINED SMALL AMOUNT OF THICK WHITE SECRETIONS. VENT ALARMS REMAIN ON AND FUNCTIONING. PT IS NOT SOB AND NOT IN ANY DISTRESS AT THIS TIME.
--- NOTE | 2017-11-01 19:12 | NUR ---
REPORT GIVEN TO COLLATING MACHINE OPERATOR FOR CONTINUE OF CARE, PT IS IN STABLE CONDITION AT THIS TIME.
--- NOTE | 2017-11-01 19:15 | NUR ---
RECEIVED PT FROM MARY RN PT IS APHASIC TRACH TO VENT DEPENDENT HOB 30 DEGREE TV 500 , FIO2 28% RR 12 PEEP 5 NOT SOB NOTED, IV ON RT FA INFUSING WELL, G TUBE FEEDING WELL TOLERATED G TUBE RESIDUAL ZERO, DUKE CATH DRAINING WELL NATALIE COLOR URINE REPOSITIONED INITIAL ASSESSMENT DONE
[2017-11-01 20:00] VITALS: BP 131/63
[2017-11-01] MEDS: PIPER/TAZO 2.25GM/D5W PREMIX 50 ML IV SCH (20:59)
[2017-11-01] MEDS: ATORVASTATIN 20 MG TAB PO SCH (20:59)
[2017-11-01] MEDS ORDERED: DILTIAZEM 60 MG TAB GT SCH (21:00)
--- NOTE | 2017-11-01 21:30 | NUR ---
LLINEN CHANGED REPOSITIONED Q2H MEDIC GIVEN AND WELL TOLERATED 02 SAT 100% TRACH TO VENT SETTING REMAIN SAME SETTING PT HAS BEEN SUCTIONED NECESSARY
[2017-11-02] VITALS: BP 148/96
--- NOTE | 2017-11-02 | NUR ---
HOB 30 DEGREE PT SUCTIONED NECESSARY RESP THERAPY IS HERE AND ASSIST THE PT , TRACH TO VENT REMAIN SAME SETTING 02 SAT 1005
[2017-11-02] MEDS: DEXT 5% /NACL 0.9% 1,000 ML IV SCH ×2 (02:07→21:20)
[2017-11-02 04:00] VITALS: BP 117/73
--- NOTE | 2017-11-02 04:00 | NUR ---
HOB 30 DEGREE ORAL CARE GIVEN WITH VAP KIT, PT TRACH TO COLTEN REMAINSAME SETTING SUCTIONED NECESSARY ON TELEMETRY AFIB
[2017-11-02] MEDS: METOCLOPRAMIDE 10 MG/2 ML INJ VIAL IVP SCH ×3 (05:14→21:17)
[2017-11-02] MEDS: PIPER/TAZO 2.25GM/D5W PREMIX 50 ML IV SCH ×3 (05:15→21:16)
[2017-11-02] MEDS: DILTIAZEM 30 MG TAB GT SCH ×3 (05:16→21:15)
[2017-11-02] MEDS: LEVOTHYROXINE 0.075 MG TAB GT SCH (05:58)
--- NOTE | 2017-11-02 06:28 | NUR ---
PT TRACH TO VENT REMAIN SAME SETTING HOB 30 DEGREE ON TELEMETRY AFIB , G TUBE FEEDING WELL TOLERATED PT WILL BE ENDORSED TO DAY SHIFT NURSE FOR CONTINUITY OF CARE
[2017-11-02 07:27] LABS: BASOPHILS % (AUTO) 0.2 % (0.0-2.0); EOSINOPHILS # (AUTO) 0.1 K/uL (0-0.4); EOSINOPHILS % (AUTO) 1.5 % (0.0-4.0); HEMATOCRIT 31.6 % (36-48); HEMOGLOBIN 10.4 g/dL (12.0-16.0); LYMPHOCYTES # (AUTO) 1.1 K/uL (2.5-16.5); MEAN CORPUSCULAR HEMOGLOBIN 30 pg (27-31); MEAN CORPUSCULAR HGB CONC 33 g/dL (33-37); MEAN CORPUSCULAR VOLUME 90.8 fL (80-94); MONOCYTES # (AUTO) 0.7 K/uL (0.8-1.0); MONOCYTES % (AUTO) 8.4 % (1.7-9.3); NEUTROPHILS # (AUTO) 6.2 K/uL (1.8-7.7); NEUTROPHILS % (AUTO) 75.9 % (42.2-75.2); PLATELET COUNT (AUTO) 178 K/uL (140-450); RED BLOOD CELL COUNT(AUTO) 3.48 MIL/uL (4.20-5.40); RED CELL DISTRIBUTION WIDTH 16.2 % (11.6-13.7); WHITE BLOOD COUNT (AUTO) 8.2 K/uL (4.8-10.8)
--- NOTE | 2017-11-02 07:30 | NUR ---
RECEIVED REPORT FROM NURSE AIDE NURSE AT BEDSIDE, PT OPEN EYES ONLY, APHASIC, UNABLE TO FOLLOW COMMANDS AND MADE NEEDS KNOWN, TRACH TO VENT WITH SETTING FIO2 28, R 12, TV500 PEEP 5, NO S/S OF DISTRESS, DIMINISHED LUNG SOUNDS MARK., A-FIB ON TELE MONITOR, ROUND SOFT ABDOMEN WITH ACTIVE BOWEL SOUNDS, GT IN PLACE, FEEDING WITH GLUCERNA AT 45ML/HR, 0ML RESIDUES, F/C IN PLACE WITH CLEAR YELLOW URINE VIA GRAVITY, SEVERE WEAKNESS NOTED, SKIN IS INTACT, WARM AND DRY TO TOUCH, IV SITE TO RIGHT FOREARM,22GA, PATENT, RUNNING D5 NS AT 60ML/HR, VSS, FLACC 0. PLACED PT AT COMFORT POSITION, SAFETY MEASURE AND SEIZURE PRECAUTION IN PLACE, CALL LIGHT WITHIN REACH, WILL CONTINUE TO MONITOR.
[2017-11-02 07:39] LABS: ANION GAP 14.7 (8-16); CARBON DIOXIDE 25.2 mmol/L (21-32); CHLORIDE 104 mmol/L (98-107); CREATININE 1.2 mg/dL (0.6-1.3); GLUCOSE 164 mg/dL (74-106); POTASSIUM 3.9 mmol/L (3.5-5.1); SODIUM SERUM 140 mmol/L (136-145); UREA NITROGEN, BLOOD 22 mg/dL (7-18)
[2017-11-02] MEDS: ALBUTEROL SULFATE/IPRATROPIU 3 ML SOL IH SCH ×3 (07:45→19:26)
[2017-11-02 08:00] VITALS: BP 137/80
--- NOTE | 2017-11-02 08:00 | NUR ---
HELD TUBE FEEDING AT THIS TIME PER MD ORDER.
[2017-11-02] MEDS: PANTOPRAZOLE 40 MG INJ VIAL IVP SCH (08:57)
[2017-11-02] MEDS: FLUCONAZOLE 100 MG TAB GT SCH (08:57)
[2017-11-02] MEDS: CARBIDOPA/LEVODOPA 25/100 MG 1 TAB PO SCH ×3 (08:57→16:30)
[2017-11-02] MEDS: LACTOBACILLUS RHAMNOSUS GG 1 EACH CAP GT SCH (08:58)
[2017-11-02] MEDS: POLYETHYLENE GLYCOL 17 GM/PKT GT SCH ×3 (09:00→16:29)
[2017-11-02] MEDS: FERROUS SULFATE 300 MG/5 ML UDC GT SCH (09:00)
[2017-11-02] MEDS: MEMANTINE 10 MG TAB GT SCH ×2 (09:00→21:16)
[2017-11-02] MEDS: MAGNESIUM HYDROXIDE 2400 MG/30 ML UDC GT SCH (09:00)
--- NOTE | 2017-11-02 09:20 | NUR ---
DR. ALLAN CAME IN TO SEE PT AT BEDSIDE, NO NEW ORDER AT THIS TIME.
--- NOTE | 2017-11-02 11:10 | NUR ---
DR. MARTINEZ CAME IN TO SEE PT AT BEDSIDE, WILL FOLLOW UP WITH NEW ORDERS.
[2017-11-02] MEDS ORDERED: NEOSTIGMINE 1:1000 10 MG/10 ML VIAL IV SCH (11:25)
--- NOTE | 2017-11-02 11:30 | NUR ---
NGT INSERTED TO LEFT NARES, POSITIVE PLACEMENT CONFIRMED WITH TWO RNS, NGT TO LWS AT THIS TIME.
[2017-11-02 12:00] VITALS: BP 143/67
--- NOTE | 2017-11-02 12:00 | NUR ---
NO S/S OF DISTRESS, SUCTION AND ORAL CARE PROVIDED, VSS, FLACC 0
--- NOTE | 2017-11-02 13:09 | NUR ---
PT SUCTIONED OBTAINED MODERATE AMOUNT OF THICK WHITE SECRETIONS. AIRWAY IS PATENT AND TRACH IS SECURE. PT IS NOT SOB AND NOT IN ANY DISTRESS AT THIS TIME. WILL CONTINUE TO MONITOR.
[2017-11-02 16:00] VITALS: BP_SYST 142; BP_SYST 159; BP_DIAS 100; BP_DIAS 97
--- NOTE | 2017-11-02 16:00 | NUR ---
PT IS RESTING IN BED, NO S/S OF DISTRESS, SUCTION AND ORAL CARE PROVIDED, VSS, FLACC 0
[2017-11-02] MEDS: RIVAROXABAN 15 MG TAB GT SCH (16:29)
--- NOTE | 2017-11-02 17:26 | NUR ---
PT REMAINS ON AC 12, VT 500, PEEP 5 AND FIO2 28%. PT IS NOT SOB AT THIS TIME. TRACH REMAINS SECURE WITH A PATENT AIRWAY. VENT ALARMS REMAIN ON AND FUNCTIONING.
--- NOTE | 2017-11-02 18:30 | NUR ---
PT'S HR WENT UP TO 166, DR. DALY MADE AWARE, HELD NGT SUCTION AT THIS TIME DUE TO NO EMESIS SUCTION OUT PER MD ORDER, WILL CONTINUE TO MONITOR.
--- NOTE | 2017-11-02 19:24 | NUR ---
REPORT GIVEN TO SUPERVISOR METAL HANGING NURSE FOR CONTINUE OF CARE, PT IS IN STABLE CONDITION AT THIS TIME.
--- NOTE | 2017-11-02 19:25 | NUR ---
RECEIVED REPORT AT PT BEDSIDE FROM DAY SHIFT RN, PT IS LETHARGIC, OPENS EYES. PT ON TRACH TO VENT WITH SETTINGS FOLLOWS: TV 500, FIO2 28%, 40L0PM, PEEP 5, AND RATE 12. PT UNABLE TO MAKE NEEDS KNOWN. RESPIRATIONS EVEN AND UNLABORED. PT SKIN INTACT. 22G IV TO RIGHT FOREARM, ASYMPTOMATIC, INTACT AND PATENT. UPDATED BOARD. VITAL SIGNS WITHIN NORMAL LIMITS. PT STABLE, NO SIGNS OF DISTRESS NOTED AT THIS TIME. BED IN LOWEST POSITION, BED ALARM ON. CALL LIGHT WITHIN REACH, WILL CONTINUE TO MONITOR.
[2017-11-02 20:00] VITALS: BP 151/81
--- NOTE | 2017-11-02 20:32 | NUR ---
RECEIVED PT ON TRACH PORTEX 7 ON VENT SETTINGS: AC/VC RR 12, VT 500, PEEP 5 AND 28% FI02. AIRWAY IS SECURED AND PATENT. ALARMS ARE ON AND AUDIBLE. VENT IS PLUGGED INTO RED OUTLET AND AMBU-BAG IS IN ROOM. NO RESPIRATORY DISTRESS NOTED. WILL CONTINUE TO MONITOR.
[2017-11-02] MEDS: NYSTATIN POW 100 MU/GM 15 GM BTL TP SCH (21:17)
[2017-11-02] MEDS: ATORVASTATIN 20 MG TAB PO SCH (21:17)
--- NOTE | 2017-11-02 21:20 | NUR ---
ADMINISTERED SCHEDULED MEDICATIONS THROUGH NGT, FLUSHED WITH 30ML WATER. PT TOLERATED WELL. PT STABLE, NO SIGNS OF DISTRESS NOTED AT THIS TIME. BED IN LOWEST POSITION, BED ALARM ON. CALL LIGHT WITHIN REACH, WILL CONTINUE TO MONITOR.
--- NOTE | 2017-11-02 23:15 | NUR ---
AT BEDSIDE ASKED TO SPEAK TO CURRENT RESIDENT. CALLED DR LEONARD ON THE PHONE. WHEN DR LEONARD GOT TO ROOM, PT HAD ALREADY GONE HOME WITHOUT TELLING ANYONE.
[2017-11-03] VITALS: BP 128/57
--- NOTE | 2017-11-03 | NUR ---
VITAL SIGNS WITHIN NORMAL LIMITS. PT STABLE, NO SIGNS OF DISTRESS NOTED AT THIS TIME. BED IN LOWEST POSITION, BED ALARM ON. CALL LIGHT WITHIN REACH, WILL CONTINUE TO MONITOR.
[2017-11-03 04:00] VITALS: BP 138/96
[2017-11-03] MEDS: DILTIAZEM 30 MG TAB GT SCH ×3 (05:37→20:50)
[2017-11-03] MEDS: PIPER/TAZO 2.25GM/D5W PREMIX 50 ML IV SCH ×3 (05:37→20:51)
[2017-11-03] MEDS: LEVOTHYROXINE 0.075 MG TAB GT SCH (05:38)
[2017-11-03] MEDS: METOCLOPRAMIDE 10 MG/2 ML INJ VIAL IVP SCH ×3 (05:38→20:52)
--- NOTE | 2017-11-03 05:38 | NUR ---
ADMINISTERED SCHEDULED MEDICATIONS, PT TOLERATED WELL. NO SIGNS OF DISTRESS NOTED. WILL CONTINUE TO MONITOR.
--- NOTE | 2017-11-03 07:30 | NUR ---
RECEIVED REPORT AT PT BEDSIDE FROM FRUIT PACKER FACE AND FILL RN, PT OPENS EYES SPONTANEOUSLY. PT ON TRACH TO VENT, TV 500, FIO2 28%, PEEP 5, AND RR RATE 12. O2 SAT 99%. SKIN INTACT. IV 22G IV TO RIGHT FOREARM, ASYMPTOMATIC, INTACT AND PATENT. DUKE CATH DRAINING CLEAR URINE. NG TUBE IN PLACE. SUCTION TURNED ON TO INTERMITTENT. BLACK LIQUID COMING OUT. UPDATED BOARD. VITAL SIGNS WITHIN NORMAL LIMITS. NO S/S OF DISTRESS NOTED AT THIS TIME. BED IN LOWEST POSITION, SEMI-JONES. BED ALARM ON. CALL LIGHT WITHIN REACH, WILL CONTINUE TO MONITOR.
[2017-11-03 07:38] LABS: BASOPHILS % (AUTO) 0.2 % (0.0-2.0); EOSINOPHILS # (AUTO) 0.1 K/uL (0-0.4); EOSINOPHILS % (AUTO) 1.1 % (0.0-4.0); HEMATOCRIT 34.5 % (36-48); HEMOGLOBIN 11.2 g/dL (12.0-16.0); LYMPHOCYTES # (AUTO) 1.1 K/uL (2.5-16.5); LYMPHOCYTES % (AUTO) 8.8 % (20.5-51.1); MEAN CORPUSCULAR HEMOGLOBIN 29 pg (27-31); MEAN CORPUSCULAR HGB CONC 32 g/dL (33-37); MEAN CORPUSCULAR VOLUME 90.7 fL (80-94); MONOCYTES # (AUTO) 0.7 K/uL (0.8-1.0); MONOCYTES % (AUTO) 5.2 % (1.7-9.3); NEUTROPHILS # (AUTO) 10.6 K/uL (1.8-7.7); NEUTROPHILS % (AUTO) 84.7 % (42.2-75.2); PLATELET COUNT (AUTO) 177 K/uL (140-450); RED CELL DISTRIBUTION WIDTH 16.1 % (11.6-13.7); WHITE BLOOD COUNT (AUTO) 12.5 K/uL (4.8-10.8)
--- NOTE | 2017-11-03 07:43 | NUR ---
ENDORSED PT TO DAY SHIFT RN FOR CONTINUITY OF CARE. PT IN STABLE CONDITION.
[2017-11-03] MEDS: ALBUTEROL SULFATE/IPRATROPIU 3 ML SOL IH SCH ×3 (07:44→19:38)
[2017-11-03 07:53] LABS: ALBUMIN 2.7 g/dL (3.4-5.0); ANION GAP 13.7 (8-16); ASPARTATE AMINOTRANSFERASE 9 U/L (15-37); CARBON DIOXIDE 25.6 mmol/L (21-32); CHLORIDE 104 mmol/L (98-107); GLUCOSE 167 mg/dL (74-106); MAGNESIUM 1.8 mg/dL (1.8-2.4); PHOSPHORUS 2.8 mg/dL (2.5-4.9); POTASSIUM 3.3 mmol/L (3.5-5.1); SODIUM SERUM 140 mmol/L (136-145); TOTAL BILIRUBIN 0.6 mg/dL (0.0-1.0); UREA NITROGEN, BLOOD 16 mg/dL (7-18)
[2017-11-03 08:00] VITALS: BP 152/83
--- NOTE | 2017-11-03 08:02 | NUR ---
RECEIVED PATIENT TRACH PORTEX 7 TO VENT ON DOCUMENTED SETTINGS: AC 12, 500, +5, 28%. VENT CHECK DONE. VENT ALARAM ON AND AUDIBLE. VENT PLUGGED INTO RED OUTLET. AMBU BAG AT BEDSIDE. CONT PULSE OX ON AND FUNCTIONING. SCHEDULED BREATHING TREATMENT ADMINISTERED. PATIENT TOLERATED TX WELL. NO ADVERSE SIDE EFFECTS. AIRWAY SECURE AND PATENT. SUCTIONED MODERATE AMOUNT OF AMOUNT OF THICK WHITE SECRETIONS. NO RESPIRATORY DISTRESS NOTED AT THIS TIME. WILL CONTINUE TO MONITOR.
[2017-11-03] MEDS: LACTOBACILLUS RHAMNOSUS GG 1 EACH CAP GT SCH (08:30)
[2017-11-03] MEDS: MAGNESIUM HYDROXIDE 2400 MG/30 ML UDC GT SCH (08:30)
[2017-11-03] MEDS: CARBIDOPA/LEVODOPA 25/100 MG 1 TAB PO SCH ×3 (08:30→16:34)
[2017-11-03] MEDS: MEMANTINE 10 MG TAB GT SCH ×2 (08:30→20:51)
[2017-11-03] MEDS: PANTOPRAZOLE 40 MG INJ VIAL IVP SCH (08:31)
[2017-11-03] MEDS: FLUCONAZOLE 100 MG TAB GT SCH (08:31)
[2017-11-03] MEDS: POLYETHYLENE GLYCOL 17 GM/PKT GT SCH ×2 (08:31→12:59)
--- NOTE | 2017-11-03 08:45 | NUR ---
CALLED ASKING FOR G TUBE FEEDING ORDER. STATED WILL PUT IN LATER
--- NOTE | 2017-11-03 09:15 | NUR ---
VENT CHECK DONE. NO RESPIRATORY DISTRESS AT THIS TIME. WILL CONTINUE TO MONITOR.
--- NOTE | 2017-11-03 09:30 | NUR ---
TALKED TO JOSEE NAVA TO GIVE MED THRU G TUBE. Addendum: 11/03/17 at 1846 by Fadi Gomez RN G TUBE RESIDUAL 5ML, CONTENT IS DARK GREEN
[2017-11-03] MEDS ORDERED: ATOR20TA40 PO (09:36)
[2017-11-03] MEDS ORDERED: FLUC100T1 GT (09:36)
[2017-11-03] MEDS ORDERED: MYCPWD TP (09:36)
[2017-11-03] MEDS ORDERED: LACT10CA GT (09:36)
[2017-11-03] MEDS ORDERED: FER300L GT (09:36)
[2017-11-03] MEDS ORDERED: ONDA2SOL45 IVP (09:36)
[2017-11-03] MEDS ORDERED: ACET-1182 PO (09:36)
[2017-11-03] MEDS ORDERED: METO5SOL24 IVP (09:36)
[2017-11-03] MEDS ORDERED: CAR30 GT (09:36)
[2017-11-03] MEDS ORDERED: PANT40PD7 IVP (09:36)
[2017-11-03] MEDS ORDERED: CARB1TAB17 PO (09:36)
[2017-11-03] MEDS ORDERED: IPRA3AMP IH ×2 (09:36)
[2017-11-03] MEDS ORDERED: MEMA10TA GT (09:36)
[2017-11-03] MEDS ORDERED: MOM GT (09:36)
[2017-11-03] MEDS ORDERED: POLY17PD46 GT (09:36)
[2017-11-03] MEDS ORDERED: RIVA15TA1 GT (09:36)
[2017-11-03] MEDS ORDERED: SYN.075 GT (09:36)
[2017-11-03] MEDS ORDERED: ACET-9529 PO (09:36)
[2017-11-03] MEDS ORDERED: PIPE1SOL IV (09:48)
--- NOTE | 2017-11-03 10:00 | NUR ---
CALLED [facility] AND SPOKE TO ANNE MARIE, NO ISOLATION BED AT THIS TIME.
[2017-11-03] MEDS: NYSTATIN POW 100 MU/GM 15 GM BTL TP SCH ×2 (10:30→20:53)
--- NOTE | 2017-11-03 10:50 | NUR ---
G TUBE DRESSING IS WET WITH BLACKISH LIQUID. TOLD THE DOCTORS. DR FLANAGAN AND DR HICKS HAVE SEEN THE PT.
--- NOTE | 2017-11-03 11:07 | NUR ---
VENT CHECK DONE. NO RESPIRATORY DISTRESS NOTED AT THIS TIME. WILL CONTINUE TO MONITOR.
[2017-11-03 12:00] VITALS: BP 130/78
[2017-11-03] MEDS ORDERED: NEOSTIGMINE 1:1000 10 MG/10 ML VIAL IV SCH (12:32)
--- NOTE | 2017-11-03 14:29 | NUR ---
VENT CHECK DONE. SCHEDULED BREATHING TREATMENT ADMINISTERED. NO ADVERSE SIDE EFFECTS. NO RESPIRATORY DISTRESS NOTED AT THIS TIME. WILL CONTINUE TO MONITOR.
--- NOTE | 2017-11-03 15:30 | NUR ---
MADE MD AWARE THAT PT NG TUBE IS DRAINING RED BLOOD. DR FLANAGAN HAS SEEN THE PT. NG TUBE IS ON LOW INTERMITTENT SUCTION. MD WILL PUT IN ORDERS.
[2017-11-03] MEDS: DEXT 5% /NACL 0.9% 1,000 ML IV SCH (15:40)
[2017-11-03 16:00] VITALS: BP 123/64
[2017-11-03] MEDS ORDERED: PANTOPRAZOLE 40 MG INJ VIAL IVP SCH (16:30)
--- NOTE | 2017-11-03 17:38 | NUR ---
VENT CHECK DONE. TRACH CARE DONE WITHOUT INCIDENT. NO RESPIRATORY DISTRESS AT THIS TIME. WILL CONTINUE TO MONITOR.
--- NOTE | 2017-11-03 17:40 | NUR ---
OLD NG TUBE CAME OUT. NEW NG TUBE PUT IN. PT TOLERATED WELL. FLUSHED 60ML OF STERIL H2O. TURNED ON SUCTION. ONLY STREAKS OF RED BLOOD WAS SEEN. MADE MD FLANAGAN AWARE.
--- NOTE | 2017-11-03 18:47 | NUR ---
G TUBE RESIDUAL 40ML, CONTENT IS DARK GREEN. FEEDING STARTED AT 10ML/HR. GLUCERNA 1.2, WATER FLUSH 100ML Q4H
--- NOTE | 2017-11-03 19:16 | NUR ---
ENDORSED PT TO ELECTRIC METER SETTER RN FOR CONTINUITY OF CARE. PT IN STABLE CONDITION.
--- NOTE | 2017-11-03 19:17 | NUR ---
RECEIVED REPORT AT PT BEDSIDE FROM DAY SHIFT RN, PT IS LETHARGIC, OPENS EYES. PT ON TRACH TO VENT WITH SETTINGS FOLLOWS: TV 500, FIO2 28%, 40L0PM, PEEP 5, AND RATE 12. PT UNABLE TO MAKE NEEDS KNOWN. RESPIRATIONS EVEN AND UNLABORED. PT SKIN INTACT. 22G IV TO RIGHT FOREARM, ASYMPTOMATIC, INTACT AND PATENT. PT RECEIVING GTUBE FEEDING AT A RATE OF 10ML/HR, AND HAS RESIDUAL OF 50ML. UPDATED BOARD. VITAL SIGNS WITHIN NORMAL LIMITS. PT STABLE, NO SIGNS OF DISTRESS NOTED AT THIS TIME. BED IN LOWEST POSITION, BED ALARM ON. CALL LIGHT WITHIN REACH, WILL CONTINUE TO MONITOR.
[2017-11-03 20:00] VITALS: BP 152/99
[2017-11-03] MEDS: ATORVASTATIN 20 MG TAB PO SCH (20:52)
--- NOTE | 2017-11-03 20:55 | NUR ---
ADMINISTERED SCHEDULED MEDICATIONS, PT TOLERATED WELL. 50ML OF RESIDUAL NOTED, ADMINISTERED MEDICATIONS WITH WATER FLUSH IN BETWEEN EACH MEDICATION, THEN ABOUT 50ML OF WATER AT THE END. NO SIGNS OF DISTRESS NOTED AT THIS TIME. WILL CONTINUE TO MONITOR RESIDUAL. PT JUST ARRIVED AT BEDSIDE.
--- NOTE | 2017-11-03 21:42 | NUR ---
PT LEFT UNIT. PT STABLE, NO SIGNS OF DISTRESS NOTED AT THIS TIME. BED IN LOWEST POSITION, BED ALARM ON. CALL LIGHT WITHIN REACH, WILL CONTINUE TO MONITOR.
--- NOTE | 2017-11-03 23:24 | NUR ---
PT G-TUBE SITE DRESSING SATURATED WITH CLEAR/YELLOW/GREEN SLIMY DISCHARGE. CLEANED AND DRIED SITE AND APPLIED NEW DRESSING.
[2017-11-04] VITALS: BP 131/67
--- NOTE | 2017-11-04 | NUR ---
FLUSHED 60ML OF STERILE WATER THROUGH NASOGASTRIC TUBE AND TURNED ON LOW SUCTION ENDORSED BY DAY SHIFT RN, ONLY CLEAR SECRETIONS NOTED AND ONE VERY SMALL RED STREAK. VITAL SIGNS WITHIN NORMAL LIMITS. PT STABLE, NO SIGNS OF DISTRESS NOTED AT THIS TIME. BED IN LOWEST POSITION, BED ALARM ON. CALL LIGHT WITHIN REACH, WILL CONTINUE TO MONITOR.
--- NOTE | 2017-11-04 02:43 | NUR ---
G-TUBE DRESSING SATURATED AGAIN WITH CLEAR/YELLOW MUCUS-LIKE DISCHARGE. CLEANED AND APPLIED NEW DRESSING, PT TOLERATED WELL.
[2017-11-04 04:00] VITALS: BP 136/63
[2017-11-04] MEDS: DEXT 5% /NACL 0.9% 1,000 ML IV SCH ×2 (05:05→14:50)
[2017-11-04] MEDS: PIPER/TAZO 2.25GM/D5W PREMIX 50 ML IV SCH ×2 (05:34→13:53)
[2017-11-04] MEDS: DILTIAZEM 30 MG TAB GT SCH ×2 (05:34→13:10)
[2017-11-04] MEDS: METOCLOPRAMIDE 10 MG/2 ML INJ VIAL IVP SCH ×2 (05:36→13:10)
[2017-11-04] MEDS: LEVOTHYROXINE 0.075 MG TAB GT SCH (05:36)
--- NOTE | 2017-11-04 05:45 | NUR ---
MORNING CARE PROVIDED BY CINEMA OPERATOR, PT TOLERATED WELL.
[2017-11-04 06:49] LABS: BASOPHILS # (AUTO) 0.1 K/uL (0.00-0.22); BASOPHILS % (AUTO) 0.7 % (0.0-2.0); EOSINOPHILS # (AUTO) 0.2 K/uL (0-0.4); HEMATOCRIT 31.3 % (36-48); HEMOGLOBIN 10.9 g/dL (12.0-16.0); LYMPHOCYTES % (AUTO) 10.2 % (20.5-51.1); MEAN CORPUSCULAR HEMOGLOBIN 30 pg (27-31); MEAN CORPUSCULAR HGB CONC 35 g/dL (33-37); MEAN CORPUSCULAR VOLUME 86.4 fL (80-94); MONOCYTES # (AUTO) 0.6 K/uL (0.8-1.0); MONOCYTES % (AUTO) 6.2 % (1.7-9.3); NEUTROPHILS # (AUTO) 8.1 K/uL (1.8-7.7); NEUTROPHILS % (AUTO) 80.9 % (42.2-75.2); PLATELET COUNT (AUTO) 160 K/uL (140-450); RED BLOOD CELL COUNT(AUTO) 3.62 MIL/uL (4.20-5.40); RED CELL DISTRIBUTION WIDTH 15.9 % (11.6-13.7)
[2017-11-04] MEDS: ALBUTEROL SULFATE/IPRATROPIU 3 ML SOL IH SCH ×2 (07:19→13:30)
--- NOTE | 2017-11-04 07:20 | NUR ---
RECEIVED PT REPORT AT PT BEDSIDE FROM FORENSIC SCIENCE TECHNICIAN RN, PT OPENS EYES SPONTANEOUSLY. PT ON TRACH TO VENT, TV 500, FIO2 28%, PEEP 5, AND RR RATE 12. O2 SAT 100%. SKIN INTACT. IV 22G IV TO RIGHT FOREARM, ASYMPTOMATIC, INTACT AND PATENT. DUKE CATH DRAINING CLEAR YELLOW URINE. NG TUBE IN PLACE. SUCTION IS OFF. UPDATED BOARD. VITAL SIGNS WITHIN NORMAL LIMITS. NO S/S OF DISTRESS NOTED AT THIS TIME. BED IN LOWEST POSITION, SEMI-JONES. BED ALARM ON. CALL LIGHT WITHIN REACH, WILL CONTINUE TO MONITOR.
--- NOTE | 2017-11-04 07:24 | NUR ---
ENDORSED PT TO DAY SHIFT RN FOR CONTINUITY OF CARE. PT IN STABLE CONDITION.
[2017-11-04 07:25] LABS: ALBUMIN 2.6 g/dL (3.4-5.0); ANION GAP 14.1 (8-16); ASPARTATE AMINOTRANSFERASE 15 U/L (15-37); CARBON DIOXIDE 24.6 mmol/L (21-32); CHLORIDE 101 mmol/L (98-107); CREATININE 0.9 mg/dL (0.6-1.3); GLUCOSE 145 mg/dL (74-106); MAGNESIUM 1.7 mg/dL (1.8-2.4); PHOSPHORUS 2.2 mg/dL (2.5-4.9); SODIUM SERUM 137 mmol/L (136-145); TOTAL BILIRUBIN 0.7 mg/dL (0.0-1.0); UREA NITROGEN, BLOOD 8 mg/dL (7-18)
[2017-11-04 07:31] LABS: POTASSIUM 2.7 mmol/L (3.5-5.1)
[2017-11-04] MEDS ORDERED: POTASSIUM CHLORIDE 40 MEQ, LIDOCAINE 1% 25 MG in NACL 0.9% 250 ML IV ONE (07:35)
[2017-11-04 08:00] VITALS: BP 129/53
[2017-11-04] MEDS: KCL 20 MEQ/WATER INJ PREMIX 100 ML IV SCH ×2 (08:08→11:30)
[2017-11-04] MEDS: MEMANTINE 10 MG TAB GT SCH (08:11)
[2017-11-04] MEDS: LACTOBACILLUS RHAMNOSUS GG 1 EACH CAP GT SCH (08:11)
[2017-11-04] MEDS: CARBIDOPA/LEVODOPA 25/100 MG 1 TAB PO SCH ×3 (08:12→16:30)
--- NOTE | 2017-11-04 08:20 | NUR ---
G TUBE RESIDUAL 5ML, CHANGED FEEDING RATE TO 30ML/HR.
[2017-11-04] MEDS: MAGNESIUM HYDROXIDE 2400 MG/30 ML UDC GT SCH (08:21)
[2017-11-04] MEDS ORDERED: FLUCONAZOLE 200 MG/NS PREMIX 100 ML IV SCH (09:00)
[2017-11-04] MEDS ORDERED: PANTOPRAZOLE 40 MG INJ VIAL IVP SCH ×2 (09:00→21:00)
--- NOTE | 2017-11-04 10:00 | NUR ---
PT HAD BED BATH, REPOSITIONING. G TUBE DRESSING IS SATURATED WITH BLACK AND YELLOW DISCHARGE. CLEANED WITH NS, PATTED DRY. CHANGED G TUBE DRESSING.
[2017-11-04] MEDS: NYSTATIN POW 100 MU/GM 15 GM BTL TP SCH (10:20)
--- NOTE | 2017-11-04 11:25 | NUR ---
G TUBE RESIDUAL 200ML, FEEDING HELD. WILL CHECK RESIDUAL IN AN HOUR. NOTIFIED DR HINES.
[2017-11-04 12:00] VITALS: BP 130/46
--- NOTE | 2017-11-04 12:21 | NUR ---
Aws Solution Architect Note: I faxed microbiology results to [facility], phone number .
--- NOTE | 2017-11-04 13:15 | NUR ---
PT WAS REPOSITIONED, SMALL BLACK BM. CLEANED AND CHANGED SOILED LINENS.
--- NOTE | 2017-11-04 13:44 | NUR ---
PT SUCTIONED OBTAINED SMALL AMOUNT OF THICK WHITE SECRETIONS, AIRWAY IS PATENT AND TRACH IS SECURE. PT IS NOT SOB AND NOT IN RESPIRATORY DISTRESS. WILL CONTINUE TO MONITOR.
--- NOTE | 2017-11-04 14:38 | NUR ---
12 LEAD EKG WAS DONE, DR ZARATE HAS REVIEWED.
--- NOTE | 2017-11-04 15:32 | NUR ---
PT WAS REPOSITIONED. GT TUBE DRESSING WET WITH BLACK AND YELLOW DISCHARGE. CLEANED SITE, NYSTATIN POWEDER APPLIED, DRESSING CHANGED.
[2017-11-04 15:35] LABS: CARBON DIOXIDE 27.4 mmol/L (21-32); CREATININE 0.8 mg/dL (0.6-1.3); GLUCOSE 158 mg/dL (74-106); POTASSIUM 3.4 mmol/L (3.5-5.1); SODIUM SERUM 136 mmol/L (136-145); UREA NITROGEN, BLOOD 7 mg/dL (7-18)
[2017-11-04 15:41] LABS: CHLORIDE 101 mmol/L (98-107)
[2017-11-04 16:00] VITALS: BP 135/73
--- NOTE | 2017-11-04 16:00 | NUR ---
SPOKE WITH GENETIC PHYSICIAN CARA, DISCUSSED TRANSPORT FOR THE PT.
--- NOTE | 2017-11-04 16:10 | NUR ---
CHECKED G TUBE RESIDUAL, 20ML. INCREASED FEEDING TO 40ML/HR.
[2017-11-04] MEDS ORDERED: POTASSIUM CHLORIDE 20% 40 MEQ/15 ML UDC GT SCH (16:30)
[2017-11-04] MEDS ORDERED: MAGNESIUM OXIDE 400 MG TAB GT SCH (16:30)
[2017-11-04] MEDS ORDERED: MAGNESIUM OXIDE 400 MG TAB PO SCH (16:30)
[2017-11-04] MEDS ORDERED: SODIUM PHOS / POTASSIUM PHOS 1 PKT PDR PO SCH (16:30)
--- NOTE | 2017-11-04 16:53 | NUR ---
Conveyor Belt Operator Note: Per Herberth from [facility] , patient may go to room 26A after 5pm today, accepting physician is , charge nurse Chanda made aware, RN Chanda will arrange transportation for patient.
--- NOTE | 2017-11-04 17:15 | NUR ---
NGT TUBE REMOVED. NO BLEEDING NOTED. PT TOLERATED OK. G TUBE SITE IS CLEAN, NO LEAKING SINCE LAST DRESSING CHANGE. PIC TAKEN.
--- NOTE | 2017-11-04 17:16 | NUR ---
TRANSPORTATION [facility] 10PM MANGLE PRESS CATCHER PER RAY, PRIMARY NURSE [place] AWARE.
--- NOTE | 2017-11-04 17:21 | NUR ---
PT REMAINS ON DOCUMENTED VENT SETTINGS. PT NOT IN ANY DISTRESS AT THIS TIME. TRACH REMAINS SECURE WITH A PATENT AIRWAY. VENT ALARMS REMAIN ON AND FUNCTIONING.
--- NOTE | 2017-11-04 17:30 | NUR ---
CALLED [facility], REPORT GIVEN TO CHACAH KONG, PT GOING TO 26A, UNDER THE CARE OF DR MESA.
--- NOTE | 2017-11-04 18:30 | NUR ---
IS HERE TO SEE THE PT. MADE HIM AWARE THAT [place] IS [place] [facility] 10PM TONIGHT.
--- NOTE | 2017-11-04 19:30 | NUR ---
REPORT GIVEN TO CLINICAL DOCUMENTATION IMPROVEMENT SPECIALIST RN, PT IN STABLE CONDITION. AT BEDSIDE.
--- NOTE | 2017-11-04 19:31 | NUR ---
RECEIVED PT REPORT AT PT BEDSIDE FROM day SHIFT NURSE [place]- RN, PT OPENS EYES SPONTANEOUSLY. PT ON TRACH TO VENT, TV 500, FIO2 28%, PEEP 5, AND RR RATE 12. O2 SAT 100%. SKIN INTACT. IV 22G IV TO RIGHT FOREARM, ASYMPTOMATIC, INTACT AND PATENT. DUKE CATH DRAINING CLEAR YELLOW URINE. DISCUSSED PLAN OF CARE WITH PT AND HE VERBALIZED UNDERSTANDING- PT IS APHASIC. NO S/S OF DISTRESS NOTED AT THIS TIME. BED IN LOWEST POSITION, SEMI-JONES. BED ALARM ON. CALL LIGHT WITHIN REACH, WILL CONTINUE TO MONITOR.
--- NOTE | 2017-11-04 20:00 | NUR ---
VITAL SIGNS TAKEN AND PT TOLERATED WELL. NO S/S OF RESPIRATORY DISTRESS OR DISCOMFORT NOTED. [facility] ARRIVED TO UNIT TO [place] [facility] [place] WILL CONTINUE TO MONITOR.
--- NOTE | 2017-11-04 20:10 | NUR ---
PT WAS TAKEN OFF UNIT VIA GURNEY BY [facility] AT THIS TIME. PT IN STABLE CONDITION.
== END 2017-11-04 20:10 | DRG 207 ==
LOC: MED 16:23 → MTU 18:49
PROVIDERS: ADMIT General Practice; ATTEND General Practice
PROC: 5A1955Z Respiratory Ventilation, Greater than 96 Consecutive Hours (ICD-10-PCS; principal; 2017-10-28)
PROC: 0D20XUZ Change Feeding Device in Upper Intestinal Tract, External Approach (ICD-10-PCS; 2017-11-02)
DX: J96.20 Acute and chronic respiratory failure, unspecified whether with hypoxia or hypercapnia (principal); J69.0 Pneumonitis due to inhalation of food and vomit; N17.0 Acute kidney failure with tubular necrosis; R53.2 Functional quadriplegia; K94.23 Gastrostomy malfunction; F02.81 Dementia in other diseases classified elsewhere, unspecified severity, with behavioral disturbance; N39.0 Urinary tract infection, site not specified; E44.0 Moderate protein-calorie malnutrition; E87.1 Hypo-osmolality and hyponatremia; Z99.11 Dependence on respirator [ventilator] status; G93.1 Anoxic brain damage, not elsewhere classified; I42.9 Cardiomyopathy, unspecified; J44.0 Chronic obstructive pulmonary disease with (acute) lower respiratory infection; G30.9 Alzheimer's disease, unspecified; E03.9 Hypothyroidism, unspecified; T50.995A Adverse effect of other drugs, medicaments and biological substances, initial encounter; I48.2 Chronic atrial fibrillation; K21.9 Gastro-esophageal reflux disease without esophagitis; G20 Parkinson's disease; D63.8 Anemia in other chronic diseases classified elsewhere; K59.00 Constipation, unspecified; B95.1 Streptococcus, group B, as the cause of diseases classified elsewhere; I50.9 Heart failure, unspecified; I11.0 Hypertensive heart disease with heart failure; I34.0 Nonrheumatic mitral (valve) insufficiency; E87.6 Hypokalemia; I27.21 Secondary pulmonary arterial hypertension; Z88.0 Allergy status to penicillin; Z88.2 Allergy status to sulfonamides; Z88.8 Allergy status to other drugs, medicaments and biological substances; Z79.899 Other long term (current) drug therapy; Y92.89 Other specified places as the place of occurrence of the external cause; Z87.820 Personal history of traumatic brain injury; Z83.3 Family history of diabetes mellitus; Z87.891 Personal history of nicotine dependence
CPT/HCPCS: 36415; 36600; 70450; 71045; 74018; 74241; 76604; 80048; 80053; 81001; 82140; 82330; 82803; 82948; 83036; 83605; 83735; 83880; 84100; 84439; 84443; 84484; 85025; 85610; 85730; 87070; 87075; 87081; 87086; 87102; 87186; 87205; 89220; 93005; 94003; 94640; 96374; 99285; C9113; J1450; J1940; J1956; J2543; J2710; J2765; J3480; J3490; J7030; J7042; J7060; J7620; J8597; Q0092

== ENCOUNTER 2020-02-21 21:20 | Inpatient (IN) | payer OTHER, SELFPAY ==
[~2020-02-21] VITALS: Ht 157.5 cm; Wt 79.8 kg
[~2020-02-21 21:20] MED LIST changes: +ACET-9529 PO; -AD45 TP; +ALBU3SOL83 IH; -AMLO-27 PO; +AMLO10TA4 PO; -ARTOP OP; +CAR30 GT; +CARB1TAB17 PO; -CARB1TAB37 PO; +FLUC100T1 GT; -IPRA3AMP IH; +METO5SOL24 IVP; +MOM GT; +MYCPWD TP; -NITR0.4S14 TD; +NITR12SP3 TD; +ONDA2SOL45 IVP; +PANT40PD7 IVP; +PIPE1SOL IV; +POLY15SO74 OP; +POLY17PD46 GT; +RIVA15TA1 GT; +[UNRECOGNIZED DRUG - CODE] TP
--- NOTE | 2020-02-21 21:20 | NUR ---
PT MELCHOR ALS. TAKEN TO BED 1
[2020-02-21 21:30] VITALS: BP 101/50
[2020-02-21 21:32] VITALS: BP 101/50
[2020-02-21 21:50] LABS: BASOPHILS % (AUTO) 0.3 % (0.0-2.0); EOSINOPHILS # (AUTO) 0.1 K/uL (0-0.4); HEMATOCRIT 24.7 % (36-48); HEMOGLOBIN 7.7 g/dL (12.0-16.0); LYMPHOCYTES # (AUTO) 1.2 K/uL (2.5-16.5); LYMPHOCYTES % (AUTO) 11.5 % (20.5-51.1); MEAN CORPUSCULAR HEMOGLOBIN 25 pg (27-31); MEAN CORPUSCULAR HGB CONC 31 g/dL (33-37); MEAN CORPUSCULAR VOLUME 81.1 fL (80-94); MONOCYTES # (AUTO) 0.9 K/uL (0.8-1.0); MONOCYTES % (AUTO) 8.9 % (1.7-9.3); NEUTROPHILS % (AUTO) 78.3 % (42.2-75.2); PLATELET COUNT (AUTO) 160 K/uL (140-450); RED BLOOD CELL COUNT(AUTO) 3.05 MIL/uL (4.20-5.40); RED CELL DISTRIBUTION WIDTH 20.6 % (11.6-13.7); WHITE BLOOD COUNT (AUTO) 10.3 K/uL (4.8-10.8)
[2020-02-21] MEDS ORDERED: LEVOFLOXACIN 500 MG/D5W PREMIX 100 ML IV ONE (21:50)
--- NOTE | 2020-02-21 22:00 | NUR ---
PT PLACED ON VENT W/ SETTINGS PROVIDED BY [facility] VC 450 +6, f 12, 28% PT Sx Lg THK YLW SECR VENT PLUGGED IN RED OUTLET AMBU AT BEDSIDE WILL CONTINUE TO MONITOR
[2020-02-21 22:05] LABS: ALBUMIN 2.4 g/dL (3.4-5.0); ANION GAP 9.8 (8-16); ASPARTATE AMINOTRANSFERASE 14 U/L (15-37); CARBON DIOXIDE 34.7 mmol/L (21-32); CHLORIDE 96 mmol/L (98-107); CREATININE 1.3 mg/dL (0.6-1.3); GLUCOSE 184 mg/dL (74-106); POTASSIUM 4.5 mmol/L (3.5-5.1); SODIUM SERUM 136 mmol/L (136-145); TOTAL BILIRUBIN 0.8 mg/dL (0.0-1.0)
[2020-02-21 22:18] LABS: UREA NITROGEN, BLOOD 77 mg/dL (7-18)
--- NOTE | 2020-02-21 22:20 | NUR ---
PT WAS SENT OVER FROM [facility] WITH COMPLAINT OF HEART RATE 39-40 BPM X 2 HRS. UPON ARRIVAL HEART RATE HAS BEEN IN THE 90'S, TO LOW 100'S. PT IS ON A VENT, HAS G-TUBE, AND INCONTINENT. RESPIRATORY AT BEDSIDE SUCTIONING PT, MODERATE AMOUNT OF THICK PALE YELLOW MUCUS SUCTIONED. LUNG SOUNDS COARSE THROUGHOUT. PT IS EDEMATOUS TO BILATERAL LEGS, FROM FEET TO HIPS, +1 PITTING EDEMA NOTED. ABD LARGE AND ROUND, ACTIVE BOWEL SOUNDS TO ALL QUADRANTS. PT ON BEDSIDE MONITOR. BED IN LOWEST POSITION AND SIDERAIL UP X 2 FOR PT SAFETY. ALLERGIES - PCN, SULFA, ALLANTOIN MED HX - DEMENTIA, RESPIRATORY FAILURE-VENT DEPENDANT, A-FIB, HYPOTHYROIDISM, GERD
--- NOTE | 2020-02-21 23:15 | NUR ---
IN AND OUT CATH INSERTED USING STERILE TECHNIQUE, APPROX 3ML OF URINE RETURN. SPECIMEN COLLECTED
--- NOTE | 2020-02-21 23:21 | NUR ---
COVID SWAB COLLECTED AND TAKEN TO LAB ALONG WITH URINE SPECIMEN
[2020-02-21 23:24] VITALS: BP 104/53
[2020-02-21 23:26] LABS: APPEARANCE,URINE CLOUDY (CLEAR); BILIRUBIN,URINE NEGATIVE (NEGATIVE); BLOOD, URINE 3+ (NEGATIVE); COLOR,URINE YELLOW (YELLOW); LEUKOCYTE ESTERASE ,URINE NEGATIVE (NEGATIVE); NITRITE, URINE NEGATIVE (NEGATIVE); UGLUCOSE NEGATIVE (NEGATIVE)
[2020-02-21 23:41] LABS: RBC,URINE 20-50 /HPF (0-5)
[2020-02-21 23:42] LABS: URINE AMORPHOUS URATE 1+ /HPF (None Seen)
[2020-02-22] VITALS (7 sets, daily range): BP systolic 74–125; BP diastolic 31–55
--- NOTE | 2020-02-22 00:29 | NUR ---
RESPIRATORY AT BEDSIDE GIVING BREATHING TREATMENT
[2020-02-22] MEDS ORDERED: ALBUTEROL SULFATE/IPRATROPIU 3 ML SOL IH ONE ×2 (00:30)
[2020-02-22] MEDS ORDERED: MORPHINE SULFATE 4 MG/ML SYR IVP ONE (00:50)
--- NOTE | 2020-02-22 01:00 | NUR ---
providing relief for primary RN Yadi, assumed pt care at this time. at bedside establishing airway intervention.
--- NOTE | 2020-02-22 01:23 | NUR ---
peak pressure high alarm constanly ongoing even after multiple respiratory interventions.
[2020-02-22] MEDS ORDERED: ONDANSETRON 4 MG/2 ML VIAL IM/IVP PRN (01:30)
[2020-02-22] MEDS ORDERED: POLYVINYL ALCOHOL 1.4% OP 15 ML SOL OP PRN (01:30)
[2020-02-22] MEDS ORDERED: ACETAMINOPHEN 325 MG TAB PO PRN (01:30)
[2020-02-22] MEDS ORDERED: POLYETHYLENE GLYCOL 17 GM/PKT GT PRN (01:30)
[2020-02-22] MEDS ORDERED: POTASSIUM CHLORIDE 10 MEQ TABER PO PRN (01:30)
[2020-02-22] MEDS ORDERED: DOCUSATE SODIUM 100 MG GELCAP PO PRN (01:30)
--- NOTE | 2020-02-22 01:44 | NUR ---
Patient will be admitted to care of DR GARCÍA. Admited to TELE. Will go to room 122B. Belongings list completed. Report to HAILEY AMANDA RN.
--- NOTE | 2020-02-22 02:00 | NUR ---
ADMITTED THE PATIENT FROM ER VIA GURNEY. PATIENT IS NON VERBAL BASELINE. OPENS EYES SOMETIMES. PATIENT IS ON TRACH TO VENT SETTING ORDERED. NO SIGN AND SYMPTOMS OF DISTRESS NOTED ON ARRIVAL TO THE FLOOR. SATING 97% ON TRACH TO VENT. VITAL SIGNS STABLE, AFEBRILE. 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 HOB ELEVATED TO PREVENT ASPIRATION. PATIENT HAS G-TUBE. AWAITING FOR MD TO ORDER THE FORMULA FOR THE G-TUBE. BED RAILS UP AND BED IN LOW POSITION. BED ALARM ON. MRSA SPECIMEN OBTAINED AND SENT TO THE LAB. SCD ON ORDERED. CALL LIGHT WITHIN REACH. WILL CONTINUE POC AND MONITORING.
[2020-02-22 02:18] LABS: PROTHROMBIN TIME 11.6 secs (10.8-13.4)
[2020-02-22 02:29] LABS: CHOL/HDL RATIO 2.4 (1-4.5); FREE T4 (FREE THYROXINE) 1.48 ng/dL (0.76-1.46); MAGNESIUM 2.6 mg/dL (1.8-2.4); PHOSPHORUS 4.2 mg/dL (2.5-4.9); THYROID STIMULATING HORMONE 11.98 uIU/mL (0.34-3.74)
--- NOTE | 2020-02-22 04:00 | NUR ---
PATIENT VITAL SIGNS STABLE, AFEBRILE, SATING 100% ON TRACH TO VENT. 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 NO COMPLAIN OF PAIN AT THIS TIME. NO S/SX OF DISTRESS NOTED.CALL LIGHT WITHIN REACH.
--- NOTE | 2020-02-22 04:10 | NUR ---
CALLED [facility] TO OBTAIN THE PT GTF FORMULA PER DR GARCÍA'S REQUEST. SPOKE WITH CHACHA KONG AND PROVIDED ME THE PT GTF FORMULA. PER DILAN BURNHAM PT IS ON GLUCERNA 1.2 @ 45 CC/HR WITH FREE H20 80 CC Q6H.
[2020-02-22] MEDS ORDERED: CRUSHER, PILL MC ONE (05:32)
[2020-02-22] MEDS: LEVOTHYROXINE 0.075 MG TAB GT SCH (05:47)
[2020-02-22] MEDS: LANSOPRAZOLE 30 MG CAPDR GT SCH (05:47)
--- NOTE | 2020-02-22 06:12 | NUR ---
NO ACUTE EVENT THROUGHOUT THE NIGHT. NO SIGN AND SYMPTOMS OF DISTRESS NOTED. NO COMPLAIN AT THIS TIME.ALL NEEDS ATTENDED. CALL LIGHT WITHIN REACH. WILL ENDORSE THE PT TO THE ONCOMING RN FOR CONTINUITY OF CARE.
[2020-02-22] MEDS: ALBUTEROL SULFATE/IPRATROPIU 3 ML SOL IH SCH ×5 (07:30→23:58)
--- NOTE | 2020-02-22 07:39 | NUR ---
PT STABLE .ENDORSED PT TO DAY RN FOR CONTINUITY OF CARE. SIGNING OFF.
--- NOTE | 2020-02-22 07:44 | NUR ---
RECEIVED PT FROM TRANSCRIBING MACHINE OPERATOR NURSE, SWETA, PT IS AWAKE AND ON A TRACH TO VENT, FI02 AT 35%, PEEP AT 6, VT IS 450, FLOW RATE IS 30, RATE IS 12, SAFETY AND FALL PRECAUTION IN PLACE, IV LINE NOTED ON THE RT HAND G. 22 ON SALINE LOCK, G- TUBE INTACT AND IN PLACE, ON CONTINUOUS FEEDING OF GLUCERNA 1.2 AT 45 ML/HR, WATER FLUSH OF 80ML/HR Q6H, SATURATION IS AT 92%, NO DUKE CATHETER IN PLACE, NO SIGN OF DISTRESS NOTED AND WILL MONITOR PT.
--- NOTE | 2020-02-22 07:45 | NUR ---
PT'S IV LINE WAS RECHECKED AND WAS VERIFIED TO BE A G. 20.
[2020-02-22] MEDS: LACTOBACILLUS RHAMNOSUS GG 1 EACH CAP GT SCH (08:35)
[2020-02-22] MEDS: FERROUS SULFATE 300 MG/5 ML UDC GT SCH ×2 (08:35→21:54)
[2020-02-22] MEDS: DOCUSATE 100 MG/10 ML UDC GT SCH ×2 (08:35→21:54)
--- NOTE | 2020-02-22 08:35 | NUR ---
PT WAS GIVEN THE SCHEDULED AM MEDICATIONS VIA G-TUBE AND RESIDUAL NOTED WAS 40ML, WILL CONTINUE TO MONITOR PT.
[2020-02-22] MEDS: MEMANTINE 10 MG TAB GT SCH ×2 (08:36→21:55)
[2020-02-22] MEDS: CARBIDOPA/LEVODOPA 25/100 MG 1 TAB PO SCH ×3 (08:36→17:23)
[2020-02-22] MEDS: FUROSEMIDE 20 MG/2 ML VIAL IVP SCH (08:44)
[2020-02-22] MEDS: lisinopriL 5 MG TAB PO SCH (08:45)
[2020-02-22] MEDS: amLODIPine 5 MG TAB PO SCH (08:45)
[2020-02-22] MEDS: MAGNESIUM HYDROXIDE 2400 MG/30 ML UDC GT SCH (08:46)
[2020-02-22] MEDS: DILTIAZEM 60 MG TAB GT SCH ×3 (08:46→21:00)
--- NOTE | 2020-02-22 09:14 | NUR ---
PATIENT HAS BEEN SCREENED AND CATEGORIZED HIGH NUTRITION RISK. PATIENT WILL BE SEEN WITHIN 1-2 DAYS OF ADMISSION. 02/22/20-02/23/[address]
--- NOTE | 2020-02-22 11:30 | NUR ---
CALLED DR. GARCÍA AND INFORMED THAT THE PT'S HEART RATE IS 164, MADE A TELEPHONE ORDER TO GIVE BOLUS OF 500ML, AND GIVE METOPROLOL 2.5 MG IVP ONCE BP IS ABOVE 100, ORDER VERIFIED AND READ BACK AND WILL BE CARRIED OUT.
--- NOTE | 2020-02-22 11:35 | NUR ---
STARTED A BOLUS OF 500ML TO PT NOW. BP IS 74/22, PULSE IS 161, WILL CONTINUE TO MONITOR PT.
[2020-02-22] MEDS ORDERED: LEVOFLOXACIN 500 MG/D5W PREMIX 100 ML IV SCH (12:00)
[2020-02-22] MEDS ORDERED: METOPROLOL 5 MG/5 ML VIAL IV SCH (12:00)
--- NOTE | 2020-02-22 12:44 | NUR ---
DR. NEWMAN CAME AND SAW THE PT, WAS INFORMED OF THE PT'S CONDITION AND MADE STAT TELEPHONE ORDER FOR AN EKG, TROPONIN, AND TO GIVE PT DIGOXIN 1.5MG IVP EVEN IF BP IS 74/31, HR IS 158. TELEPHONE ORDER READ BACK AND VERIFIED AND WILL BE CARRIED OUT.
[2020-02-22] MEDS ORDERED: DIGOXIN 0.25 MG/ML AMP IV SCH (12:57)
--- NOTE | 2020-02-22 13:20 | NUR ---
PT'S BP NOW IS 105/50, HR IS 110, WILL CONTINUE TO MONITOR PT.
--- NOTE | 2020-02-22 13:40 | NUR ---
CALLED DR. GARCÍA AND INFORMED MD THAT PT'S HEART RATE IN THE MEDICAL RECORD CLERK IS 95 AND MD SAID NOT TO GIVE THE METOPROLOL ANYMORE. ACKNOWLEDGED AND WILL CARRY OUT TELEPHONE ORDER.
--- NOTE | 2020-02-22 14:57 | NUR ---
DR. GARCÍA MADE A TELEPHONE ORDER TO GIVE PT IVF NS AT 60ML/HR NOW, ORDER READ BACK AND VERIFIED AND WILL BE CARRIED OUT.
[2020-02-22] MEDS ORDERED: NACL 0.9% 500 ML IV SCH (15:00)
[2020-02-22] MEDS: NACL 0.9% 1,000 ML IV SCH ×2 (15:00→23:25)
--- NOTE | 2020-02-22 15:17 | NUR ---
02/22/20 RD INITIAL ASSESSMENT COMPLETED PLEASE REFER TO NUTRITION ASSESSMENT UNDER CARE ACTIVITY FOR ESTIMATED NUTRITIONAL NEEDS. 1. RECOMMEND INCREASING GOAL RATE OF GLUCERNA 1.2 @ 60 ML/HR X 24 HR -THIS WILL PROVIDE 1728 KCAL AND 86 GM OF PROTEIN, MEETING 100% OF KCAL AND PROTEIN NEEDS 2. RECOMMEND FREE WATER FLUSH OF [address] TO FOLLOW-UP 2-3 DAYS, HIGH RISK VALERIE ROCA RD
--- NOTE | 2020-02-22 16:19 | NUR ---
SOCIAL WORK NOTE: SW WAS UNABLE TO MEET PATIENT AT BEDSIDE. SW CONTACTED PATIENT'S EMERGENCY CONTACT, ERIN METCALF [phone]. SW WILL FOLLOW UP.
[2020-02-22] MEDS: RIVAROXABAN 15 MG TAB GT SCH (17:23)
--- NOTE | 2020-02-22 17:23 | NUR ---
PT WAS GIVEN THE SCHEDULED MEDICATIONS VIA G-TUBE, RESIDUAL NOTED IS 70ML. WILL MONITOR PT.
--- NOTE | 2020-02-22 19:25 | NUR ---
RECEIVED PT SLEEPY , AROUSABLE TO SHAKING . TRACH TO VENT - O2 SAT WNL . IV SITE INTACT AND PATENT , APHASIC - HX OF DEMENTIA , BEDBOUND , LOW THANH SCALE - SKIN INTACT , INCONTINENT DIAPER . PER AM NURSE PT . HAD EPISODE OF HR 150"S AND LOW BLOOD PRESSURE . DIGOXIN , METOPROLOL WAS GIVEN ON THAT TIME . WELL BOLUS 500CC OF NSS . PT . SEEN BY DIRECTOR OF MUSIC THIS AM . REFERRED TO CARDI - DR. LEON ALFONSO - BUT THE CARDIO DID NOT YET SEE THE PT . - WILL FOLLOW UP W/ DR. ALFONSO . PLAN OF CARE DISCUSSED BUT POOR UNDERSTANDING DUE TO MENTAL STATUS . SAFETY MEASURES IN PLACE - BED ALARM ON . ON TELE MONITOR , AND O2 SAT MONITOR . DNR .WILL CONT. TO MONITOR . Addendum: 02/23/20 at 0443 by Merry Smith RN W/ ON GOING G TUBE FEEDING -SOFT ABD. WILL FURTHER ASSESS THE RESIDUAL . - [place]
--- NOTE | 2020-02-22 19:25 | NUR ---
ENDORSED PT TO FLOORPERSON NURSE FOR CONTINUITY OF CARE
--- NOTE | 2020-02-22 20:45 | NUR ---
REFERRING TO DR LEON ALFONSO - BP 117/40 - HR ON V/S MACHINE 130'S , O2 SAT 99 % , CARDIAC TRACING ON TELE MONITOR HR 98 CONTROLLED A FIB . WILL WAIT DR. ALFONSO RESPONSE .
--- NOTE | 2020-02-22 21:06 | NUR ---
HOLD THE DUE CARDIZEM BEC. OF SBP 40 , AND LONG THE HR IS NOT GREATER THAN [address] ALFONSO . DR. ALFONSO SAID HE WILL VISIT THE PT. VIOLETTE - WILL UPDATE DR. GARCÍA
[2020-02-22] MEDS: LEVOFLOXACIN 250 MG/D5 PREMIX 50 ML IV SCH (21:55)
[2020-02-22] MEDS: ATORVASTATIN 20 MG TAB GT SCH (21:55)
--- NOTE | 2020-02-22 22:48 | NUR ---
HOLD G TUBE FEEDING DUE TO I ASPIRATED 300ML FEEDING RESIDUAL - INFORMED DR. GARCÍA . WILL CONT. TO MONITOR.
[2020-02-23] VITALS (11 sets, daily range): BP systolic 104–129; BP diastolic 41–57
--- NOTE | 2020-02-23 | NUR ---
ASPIRATED 280CC FEEDING RESIDUAL - CONT. TOO HOLD THE FEEDING ORDERED .
--- NOTE | 2020-02-23 01:35 | NUR ---
UPDATING DR Serg GARCÍA - PT HAS UNCONTROLLED A FIB , FLUACTUATING HR TO 100 'S TO 120'S , AND THE DIASTOLIC BP IS REMAINING AT 40'SMMHG , FEEDING IS STILL ON HOLD . RR 16 O2 SAT 100 %- APPEARS COMFORTABLY ON BED WILL CONT. TO MONITOR Addendum: 02/23/20 at 0139 by Merry Smith RN CHARGE NURSE IS AWARE - PT . HAS UNCONTROLLED A FIB ON TELE MONITOR
[2020-02-23] MEDS: ALBUTEROL SULFATE/IPRATROPIU 3 ML SOL IH SCH ×6 (02:21→22:48)
--- NOTE | 2020-02-23 03:30 | NUR ---
ASPIRATE 80CC OF FEEDING RESIDUE - WILL RESUME FEEDING GRADUALLY - INITIALLY AT 20CC/HR - W/ 50CC/WATER FLUSH Q 6H - WILL INCREASE THE RATE ACCORDING TO PT'S RESPONSE TO FEEDING .
--- NOTE | 2020-02-23 04:00 | NUR ---
RESUME FEEDING , WILL CONT. TO MONITOR . PT AWAKE - NID - O2 SAT WNL . ON TELE MONITOR .
[2020-02-23 05:36] LABS: BASOPHILS % (AUTO) 0.2 % (0.0-2.0); EOSINOPHILS % (AUTO) 0.2 % (0.0-4.0); HEMATOCRIT 24.2 % (36-48); HEMOGLOBIN 7.5 g/dL (12.0-16.0); LYMPHOCYTES # (AUTO) 0.6 K/uL (2.5-16.5); LYMPHOCYTES % (AUTO) 9.7 % (20.5-51.1); MEAN CORPUSCULAR HEMOGLOBIN 25 pg (27-31); MEAN CORPUSCULAR HGB CONC 31 g/dL (33-37); MEAN CORPUSCULAR VOLUME 80.9 fL (80-94); MONOCYTES # (AUTO) 0.7 K/uL (0.8-1.0); MONOCYTES % (AUTO) 10.2 % (1.7-9.3); NEUTROPHILS # (AUTO) 5.1 K/uL (1.8-7.7); NEUTROPHILS % (AUTO) 79.7 % (42.2-75.2); PLATELET COUNT (AUTO) 126 K/uL (140-450); RED BLOOD CELL COUNT(AUTO) 2.99 MIL/uL (4.20-5.40); RED CELL DISTRIBUTION WIDTH 20.2 % (11.6-13.7); WHITE BLOOD COUNT (AUTO) 6.4 K/uL (4.8-10.8)
[2020-02-23] MEDS: LANSOPRAZOLE 30 MG CAPDR GT SCH (05:43)
[2020-02-23] MEDS: LEVOTHYROXINE 0.075 MG TAB GT SCH (05:44)
[2020-02-23 06:03] LABS: ANION GAP 15.5 (8-16); CARBON DIOXIDE 31.8 mmol/L (21-32); CHLORIDE 98 mmol/L (98-107); CREATININE 1.2 mg/dL (0.6-1.3); GLUCOSE 207 mg/dL (74-106); POTASSIUM 3.3 mmol/L (3.5-5.1); SODIUM SERUM 142 mmol/L (136-145)
[2020-02-23 06:19] LABS: UREA NITROGEN, BLOOD 66 mg/dL (7-18)
--- NOTE | 2020-02-23 06:21 | NUR ---
LAB CALL - RELAYING LATEST SERUM BUN 66 . - INFORM FAIRY THE CHARGE NURSE - THE SERUM BUN IS STILL HIGH BUT TRENDING DOWN .- WILL ENDORSED . - PT HAD FULLY SOAKED DIAPER 3X , NO HEMETURIA NOTED - WILL ENDORSE.
[2020-02-23] MEDS ORDERED: KCL 20 MEQ/WATER INJ PREMIX 100 ML IV SCH (06:50)
--- NOTE | 2020-02-23 06:50 | NUR ---
RELAYED TO DR. GARCÍA ABOUT THE LATEST K+ 3.3 - HE ORDERED GIVE THE POTASSIUM TAB. WHICH ACTIVELY ORDER ON EMAR - BUT ON THE TIME I'M ABOUT TO GIVE POTASSIUM TAB /THRU NGT I NOTICES THERE IS CONTINOUSLY LEAKING FROM STOMA - I HOLD THE G TUBE FEEDING AND PT'S ABD. SEEMS BLOATED AND INFORMED THE CHARGE NURSE . WILL REFER TO DR. GARCÍA .
--- NOTE | 2020-02-23 06:54 | NUR ---
DR. GARCÍA AGREE TO HOLD THE G TUBE FEEDING AT THIS TIME - THEN HE ORDER K RIDER 20MEQ TIV INSTEAD OF KCL TAB. PER G TUBE - WILL ENDORSE .
--- NOTE | 2020-02-23 07:10 | NUR ---
ENDORSED TO AM SHIFT - PT - STABLE - ENDORSE TO AM SHIFT SHE WILL THE ONE WILL GIVE THE K RIDER -. INFORMED PT'S FEEDING IS ON HOLD AND PT IS NPO . ENDORSED .
--- NOTE | 2020-02-23 07:10 | NUR ---
RECEIVED PT FROM REGIONAL TRAINING MANAGER NURSESHARRON PT IS AWAKE AND ON A TRACH TO VENT, FI02 AT 28%, PEEP AT 6, VT IS 450, FLOW RATE IS 30, RATE IS 12, SAFETY AND FALL PRECAUTION IN PLACE, IV LINE NOTED ON THE RT HAND G. 20 WITH NS INFUSING AT 60ML/HR, G- TUBE INTACT AND ON HOLD FOR FEEDING, SATURATION IS AT 98%, NO DUKE CATHETER IN PLACE, BILATERAL SWELLING FROM ELBOW TO UPPER ARMS NOTED, PITTING +1, NO SIGN OF DISTRESS NOTED AND WILL MONITOR PT.
--- NOTE | 2020-02-23 07:30 | NUR ---
PT'S G-TUBE RESIDUAL WAS CHECKED NOW AND HAS 70ML, WILL MONITOR PT.
--- NOTE | 2020-02-23 08:52 | NUR ---
SOCIAL WORK NOTE: Patient's Orientation Unable To Assess Information Provided By IZZY - [facility] Comments SW WAS UNABLE TO MEET PATIENT AT BEDSIDE DUE TO MEDICAL CONDITION. CARMINA LEFT MESSAGE WITH PATIENT'S ERIN METCALF [phone] AND YAA RAMÍREZ [phone]. CARMINA COMPLETED ASSESSMENT WITH IZZY FROM [facility]. Waste Recycler, Realtionship and Phone Number ERIN METCALF /HEALTHCARE DECISION MAKER [phone] YAA RAMÍREZ DAUGHTER [phone] Healthcare Power of Apple Sorter No Does Patient Have a POLST No Identifying Problems No Social Work Triggers Is A Social Work Consult Needed No Mandate Report Filed No Explanation Of Identifying Problems PATIENT IS A 89-YEAR-OLD FEMALE ADMITTED FOR BRADYCARDIA AND PNEUMONIA. PATIENT HAS PMHX OF A-FIB, DEMENTIA, GERD, AND HYPERTENSION. [facility] - [phone] Pre-Admission Level Of Functioning Status Total Care Level Of Functioning Comment PER IZZY, PATIENT REQUIRES TOTAL CARE WITH ADLS. Prior Resources/Services Used In Last 12 Months SNF Residential Care Prior Resources/Service Comments PATIENT IS NURSING HOME AND ON A BED HOLD. Dialysis Comments IZZY REPORTED NO DIALYSIS FOR PATIENT. Patient Had Caregiver No Home Support No Caregiver Issues Financial Issues No Known Financial Issue Referral To The Financial Counselor Needed No Factors/Needs SNF/NH Placement Explanation And Or Other Factors Affecting/Possible DC Needs PATIENT IS NURSING HOME AND ON A BED HOLD. Pt/Rep Participated In Discharge Plan Yes Patient/Family Agress With Discharge Plan Yes Discharge Plan Comments TENTATIVE DISCHARGE PLAN IS FOR PATIENT TO RETURN TO [facility]. DC Plan Status Initiated
[2020-02-23] MEDS: LACTOBACILLUS RHAMNOSUS GG 1 EACH CAP GT SCH (08:58)
[2020-02-23] MEDS: CARBIDOPA/LEVODOPA 25/100 MG 1 TAB PO SCH ×3 (08:59→16:54)
[2020-02-23] MEDS: MEMANTINE 10 MG TAB GT SCH ×2 (08:59→20:20)
[2020-02-23] MEDS: HYDROcodone/APAP 7.5/325 MG 1 TAB PO PRN (08:59)
[2020-02-23] MEDS: FERROUS SULFATE 300 MG/5 ML UDC GT SCH ×2 (08:59→20:20)
[2020-02-23] MEDS: DOCUSATE 100 MG/10 ML UDC GT SCH ×2 (08:59→20:20)
[2020-02-23] MEDS: DILTIAZEM 60 MG TAB GT SCH ×2 (09:00→21:00)
[2020-02-23] MEDS: lisinopriL 5 MG TAB PO SCH (09:00)
--- NOTE | 2020-02-23 09:00 | NUR ---
PT WAS GIVEN THE SCHEDULED AM MEDICATIONS NOW, VIA G-TUBE, RESIDUAL NOTED IS 40ML, PARAMETERS CHECKED, BP IS 149/67, PULSE IS 118 ON SCIENTIFIC RESEARCH MANAGER, O2 SATURATION IS AT 100%, RESPIRATION IS 18/MIN, NO SIGN OF DISTRESS NOTED AND WILL MONITOR PT.
[2020-02-23] MEDS: amLODIPine 5 MG TAB PO SCH (09:01)
[2020-02-23] MEDS: FUROSEMIDE 20 MG/2 ML VIAL IVP SCH (09:01)
[2020-02-23] MEDS: MAGNESIUM HYDROXIDE 2400 MG/30 ML UDC GT SCH (09:06)
[2020-02-23] MEDS ORDERED: POTASSIUM CHLORIDE 20% 40 MEQ/15 ML UDC GT SCH (09:15)
--- NOTE | 2020-02-23 11:40 | NUR ---
PT WAS GIVEN THE SCHEDULED MEDICATION, VIA G-TUBE, RESIDUAL NOTED IS 80ML, NO SIGN OF DISTRESS NOTED AND WILL BE MONITORED.
--- NOTE | 2020-02-23 14:40 | NUR ---
PT CONSTANTLY PEAK PRESSURE AT 50. CALLED DR. NEWMAN AND HE STATED TO PLACE PT ON AC/PC AND GET ABG IN 1 HOUR. PLACED PT ON PC 32, RATE 12, I-TIME 0.9, +6, 28%. PT SAT STABLE AT 96%. NOTIFIED RN. WILL CONTINUE TO MONITOR.
--- NOTE | 2020-02-23 14:45 | NUR ---
RT ON THE BEDSIDE AND SAID SHONNA HE SPOKE TO DR. NEWMAN AND MD MADE AN TELEPHONE ORDER TO CHANGE THE VENTILATOR SETTING FROM VOLUME CONTROL TO PRESSURE CONTROL NOW, FIO2 AT 28%, P/INSP IS 32, RATE IS 12, PEEP IS 6 AND T/INSP IS 0.90 SECS, PT IS SATURATING AT 96% NOW. NO SIGN OF DISTRESS NOTED, WILL MONITOR PT.
--- NOTE | 2020-02-23 15:20 | NUR ---
DISCHARGE PLANNING: THIS IS AN 89 Y/O FEMALE PATIENT FROM [facility], WHO WAS BIBA DUE TO BRADYCARDIA AND PNEUMONIA. PAST MEDICAL HISTORY INCLUDE CHRONIC RESP FAILURE WITH TRACH TO VENT, CHRONIC AFIB, DEMENTIA, HERD, HTN, ACUTE RENAL FAILURE. INITIAL DIAGNOSIS OF BRADYCARDIA, PNEUMONIA. PULMO, CARDIO AND URO CONSULTS IN PLACE. ON LEVAQUIN, RUDYTO. TRACH TO VENT, FIO2 28%. DC PLAN BACK TO [facility] ONCE STABLE. Addendum: 03/01/20 at 1325 by Cyndi Zuñiga CM DC PLANNING: CT ABD SHOWED ASCITES AWAITING FOR PARACENTESIS. SEEN BY UROLOGIST NO INTERVENTION NEEDED FOR NON OBSTRUCTING STONES. PULMO AND CARDIO FOLLOW UP CONTINUE TRACH CARE AND NO CHANGE TO CARDIAC MANAGEMENT. DC PLAN TO GO BACK TO [facility] WHEN STABLE CM TO FOLLOW. Addendum: 03/02/20 at 1102 by Cyndi Zuñiga CM DC PLANNING: S/P US GUIDED PARACENTESIS ,REMOVED 1.7L FLUID TOLERATED WELL. G-TUBE CURRENTLY NOT LEAKING , RESUME G-TUBE FEEDING . DC PLAN TO GO BACK TO [facility] ON 03/03/20 Addendum: 03/02/20 at 1211 by Shannan Austin ELIJAH AT [facility] MADE AWARE THAT TENTATIVE DC PLAN IS FOR TOMORROW 03/03/2020. CLINICALS SENT TO [facility] AND [facility]. CASEY OF [facility] MADE AWARE WELL. CONTACTED PATIENT'S ERIN METCALF AT [phone] TO DISCUSS TENTATIVE DC PLAN, NO ANSWER. LEFT MESSAGE. CONTACTED PATIENT'S DAUGHTER YAA RAMÍREZ AT [phone], NO ANSWER. UNABLE TO LEAVE VOICE MESSAGE, VOICEMAIL HAS NOT BEEN SET UP YET. WILL FOLLOW UP. Addendum: 03/02/20 at 1223 by Nina Purdy ALEX SY: SPOKE TO PATIENTS DAUGHTER YAA [phone] TO DISCUSS DISCHARGE BACK TO [facility] TOMORROW AND DISCUSS RIGHTS OF MEDICARE. SHE STATED THAT SHE WOULD LIKE A CALL FROM THE DOCTOR REGARDING PATIENTS STATUS. PATIENTS IS AMHARIC SPEAKING. I OFFERED HER FOR SOMEONE TO CALL HER FATHER WITH AN DIPLOMATIC OFFICER SHE STATED THAT IT WAS OKAY FOR THEM TO CALL HER AND SHE WILL RELAY THE MESSAGE TO HER FATHER. NOTIFIED DILAN AGUILAR THAT THEY ARE REQUESTING A PHONE CALL. Addendum: 03/02/20 at 1323 by Shannan Austin CM CASEY ARVIZU [facility] PROVIDED ME WITH TRANSPORT AUTH [id number]. Addendum: 03/02/20 at 1337 by Nina Purdy CM ALEX SY: SPOKE WITH HEATHER AT [facility] [phone] TO SET UP WILL CALL TRANSPORTATION. Addendum: 03/03/20 at 1052 by Nina Purdy CM DC TEAM ASSEMBLER: PATIENT WILL DC TODAY BACK TO [facility] ROOM 7B. Addendum: 03/03/20 at 1156 by Nina Prudy CM DC TEAM ASSEMBLER: CONTACTED PATIENTS DAUGHTER TO NOTIFY HER THAT PATIENT WILL BE DISCHARGING TODAY
--- NOTE | 2020-02-23 16:54 | NUR ---
PT WAS GIVEN THE SCHEDULED MEDICATIONS VIA G-TUBE, RESIDUAL IS 80ML. WILL MONITOR PT.
--- NOTE | 2020-02-23 17:01 | NUR ---
DR. PINEDA CAME TO THE PT'S ROOM AND ASSESSED PT AND MD WAS INFORMED OF THE PT'S STATUS AND MD WILL PLACE ORDERS FOR PT.
[2020-02-23] MEDS: RIVAROXABAN 15 MG TAB GT SCH (17:02)
--- NOTE | 2020-02-23 17:12 | NUR ---
SPOKE WITH DR. NEWMAN ABOUT ABG RESULTS. STATES TO DROP PC TO 28 AND REPEAT ABG AT 08:00 ON 02/24/2020.
--- NOTE | 2020-02-23 17:30 | NUR ---
DR. PINEDA MADE AN ORDER TO DISCONTINUE THE PT'S LISINOPRIL AND NORVASC.
--- NOTE | 2020-02-23 18:00 | NUR ---
PT IS SATURATING AT 98% NOW AND HEART RATE IS 99, NO SIGN OF DISTRESS NOTED.
--- NOTE | 2020-02-23 19:30 | NUR ---
ENDORSED PT TO LIFESTYLE DIRECTOR NURSEPABLITO FOR CONTINUITY OF CARE.
--- NOTE | 2020-02-23 19:31 | NUR ---
RECEIVED REPORT FROM DAY SHIFT NURSE. PT IN BED RESTING. PT WITH SPONTANEOUS EYE OPENING. PT APHASIC. PT HAS TRACH CONNECTED TO VENT. CURRENT SETTINGS FOLLOWS: AC/PC FIO2 28, RR 12, PEEP 6. PT NOT IN DISTRESS. O2 SAT 97%. ABDOMEN IS ROUND AND DISTENDED. PT WITH GTUBE IN PLACE WITH CONTINUOUS FEEDING. SKIN IS WARM, DRY, AND INTACT. BILATERAL NON-PITTING EDEMA NOTED ON BOTH LOWER EXTREMITIES. IV ACCESS ON RIGHT HAND G20 PATENT AND INTACT. IVF INFUSING WELL. PT CURRENTLY ON TELE MONITORING, PT WITH FLUCTUATING RHYTHMS. PT KEPT COMFORTABLE. PT NOT IN DISTRESS. FLACC 0. SAFETY MEASURES IN PLACE. WILL CONTINUE TO MONITOR.
[2020-02-23] MEDS: ATORVASTATIN 20 MG TAB GT SCH (20:20)
[2020-02-23] MEDS: LEVOFLOXACIN 250 MG/D5 PREMIX 50 ML IV SCH (20:21)
--- NOTE | 2020-02-23 20:21 | NUR ---
VS STABLE. GTUBE RESIDUAL OF 250 ML NOTED. FEEDING KEPT ON HOLD. SCHEDULED MEDICATIONS GIVEN ORDERED. CARDIZEM PLACED ON HOLD, BP 126/54, HR 69. PT TURNED TO SIDE. PT NOT IN DISTRESS. TRACH CONNECTED TO VENT. SAFETY MEASURES IN PLACE. WILL CONTINUE TO MONITOR.
--- NOTE | 2020-02-23 22:16 | NUR ---
PT IN BED RESTING. TRACH CONNECTED TO VENT. PERINEAL CARE DONE WITH SUPERVISOR SHUTTLE PREPARATION. PT TOLERATED WELL. PT NOT IN DISTRESS. O2 SAT 98%. PT TURNED TO SIDE. SAFETY MEASURES IN PLACE. WILL CONTINUE TO MONITOR.
--- NOTE | 2020-02-23 22:30 | NUR ---
GTUBE RESIDUAL 120 CC. FEEDING KEPT ON HOLD. WILL CONTINUE TO MONITOR.
[2020-02-24] VITALS (8 sets, daily range): BP systolic 98–120; BP diastolic 41–63
--- NOTE | 2020-02-24 00:08 | NUR ---
VITAL SIGNS STABLE. PT IN BED RESTING. TRACH CONNECTED TO VENT. PT NOT IN DISTRESS. O2 SAT 97%. NO S/SX OF PAIN OR DISTRESS. FLACC 0. 100ML RESIDUAL NOTED. FEEDING KEPT ON HOLD. SAFETY MEASURES IN PLACE. WILL CONTINUE TO MONITOR.
[2020-02-24] MEDS: NACL 0.9% 1,000 ML IV SCH ×2 (00:20→12:06)
[2020-02-24] MEDS: ALBUTEROL SULFATE/IPRATROPIU 3 ML SOL IH SCH ×7 (01:57→23:37)
[2020-02-24] MEDS ORDERED: METOPROLOL 5 MG/5 ML VIAL IV ONE (02:00)
--- NOTE | 2020-02-24 02:03 | NUR ---
PT HR 130'S. DR. GARCÍA AWARE. RECEIVED ORDER OF METOPROLOL 2.5MG IV, MAY REPEAT SAME DOSE AFTER 20MINS IF HR DOESN'T IMPROVE. WILL CONTINUE TO MONITOR.
--- NOTE | 2020-02-24 02:36 | NUR ---
HR 130'S. PRN LOPRESSOR GIVEN ORDERED. WILL CONTINUE TO MONITOR.
--- NOTE | 2020-02-24 04:30 | NUR ---
VS STABLE. PT NOT IN DISTRESS. TRACH CONNECTED TO VENT. PERINEAL CARE, ORAL CARE, SKIN CARE, GTUBE CARE DONE. PT TOLERATED ALL CARE PROVIDED. RESIDUAL 80ML. FEEDING IN PLACE. WILL CONTINUE TO MONITOR.
[2020-02-24] MEDS: HYDROcodone/APAP 7.5/325 MG 1 TAB PO PRN (04:55)
--- NOTE | 2020-02-24 04:55 | NUR ---
PT GRIMACING OFTEN. PRN PAIN MEDICATION GIVEN ORDERED. WILL CONTINUE TO MONITOR.
[2020-02-24 05:55] LABS: ANION GAP 9.1 (8-16); CARBON DIOXIDE 33.3 mmol/L (21-32); CHLORIDE 102 mmol/L (98-107); CREATININE 1.1 mg/dL (0.6-1.3); GLUCOSE 204 mg/dL (74-106); POTASSIUM 3.4 mmol/L (3.5-5.1); SODIUM SERUM 141 mmol/L (136-145)
[2020-02-24 05:58] LABS: BASOPHILS % (AUTO) 0.1 % (0.0-2.0); EOSINOPHILS % (AUTO) 0.2 % (0.0-4.0); HEMATOCRIT 23.4 % (36-48); HEMOGLOBIN 7.3 g/dL (12.0-16.0); LYMPHOCYTES # (AUTO) 0.7 K/uL (2.5-16.5); LYMPHOCYTES % (AUTO) 9.7 % (20.5-51.1); MEAN CORPUSCULAR HEMOGLOBIN 25 pg (27-31); MEAN CORPUSCULAR HGB CONC 31 g/dL (33-37); MEAN CORPUSCULAR VOLUME 81.1 fL (80-94); MONOCYTES # (AUTO) 0.8 K/uL (0.8-1.0); MONOCYTES % (AUTO) 10.8 % (1.7-9.3); NEUTROPHILS # (AUTO) 5.8 K/uL (1.8-7.7); NEUTROPHILS % (AUTO) 79.2 % (42.2-75.2); PLATELET COUNT (AUTO) 145 K/uL (140-450); RED BLOOD CELL COUNT(AUTO) 2.89 MIL/uL (4.20-5.40); RED CELL DISTRIBUTION WIDTH 21.1 % (11.6-13.7); WHITE BLOOD COUNT (AUTO) 7.4 K/uL (4.8-10.8)
[2020-02-24 06:01] LABS: UREA NITROGEN, BLOOD 53 mg/dL (7-18)
[2020-02-24 06:03] LABS: MAGNESIUM 2.3 mg/dL (1.8-2.4); PHOSPHORUS 3.1 mg/dL (2.5-4.9)
[2020-02-24] MEDS: LANSOPRAZOLE 30 MG CAPDR GT SCH (06:03)
[2020-02-24] MEDS: LEVOTHYROXINE 0.075 MG TAB GT SCH (06:03)
--- NOTE | 2020-02-24 06:03 | NUR ---
GTUBE RESIDUAL 150. FEEDING WITHELD. SCHEDULED MEDS GIVEN ORDERED. WILL CONTINUE TO MONITOR.
--- NOTE | 2020-02-24 07:18 | NUR ---
ENDORSED TO DAYSCOFT NURSE FOR CONTINUITY OF CARE.
--- NOTE | 2020-02-24 07:19 | NUR ---
RECEIVED REPORT FROM AGRICULTURAL EQUIPMENT TEST ENGINEER NURSE PABLITO-DILAN. PT RESTING IN BED, AOX1, ON TRACH TO VENT- FIO2 28, PEEP 6- WITH RIGHT HAND #20G RUNNING NS @ 60ML/HR. BLE/BUE EDEMA. TUBE FEEDING GLUCERNA RUNNING AT 45ML/HR WITH WATER FLUSH 80ML Q6H. CALL LIGHT WITHIN REACH. FALL PRECAUTIONS. NO S/S OF RESPIRATORY DISTRESS OR DISCOMFORT NOTED AT THIS TIME. WILL CONTINUE TO MONITOR.
[2020-02-24] MEDS: DILTIAZEM 60 MG TAB GT SCH ×2 (08:54→21:00)
[2020-02-24] MEDS: CARBIDOPA/LEVODOPA 25/100 MG 1 TAB PO SCH ×3 (08:54→17:00)
[2020-02-24] MEDS: MEMANTINE 10 MG TAB GT SCH ×2 (08:55→21:00)
[2020-02-24] MEDS: DOCUSATE 100 MG/10 ML UDC GT SCH (08:55)
[2020-02-24] MEDS: FERROUS SULFATE 300 MG/5 ML UDC GT SCH (08:55)
[2020-02-24] MEDS: MAGNESIUM HYDROXIDE 2400 MG/30 ML UDC GT SCH (08:55)
[2020-02-24] MEDS: LACTOBACILLUS RHAMNOSUS GG 1 EACH CAP GT SCH (08:55)
[2020-02-24] MEDS: FUROSEMIDE 20 MG/2 ML VIAL IVP SCH ×3 (08:56→17:25)
--- NOTE | 2020-02-24 08:56 | NUR ---
ZERO RESIDUAL ON G-TUBE. SCHEDULED MEDICATIONS GIVEN AND TOLERATED WELL. G-TUBE FEEDINGS RESUMED TO 25ML/HR DUE TO POOR ABSORPTION. NO S/S OF RESPIRATORY DISTRESS OR DISCOMFORT NOTED AT THIS TIME. WILL CONTINUE TO MONITOR.
--- NOTE | 2020-02-24 10:19 | NUR ---
GAVE TELEPHONE READ BACK OF ABG RESULT TO DR NEWMAN. SAID TO KEEP VENT SETTING IT IS. WILL CONTINUE TO MONITOR PATIENT.
--- NOTE | 2020-02-24 11:00 | NUR ---
SUPERVISOR TRUST ACCOUNTS GARY ASSISTING PT WITH BED BATH. G-TUBE SITE OOZING WITH INFANTE/CLOUDY SUBSTANCE. ABDOMEN DISTENDED. BLE TIGHT/HARD/COLD. CHARGE NURSE IGNACIO MCMILLAN. DR. GARCÍA AWARE AND ASSESSED PT. PT RESTING IN BED. NO S/S OF RESPIRATORY DISTRESS OR DISCOMFORT NOTED AT THIS TIME. WILL CONTINUE TO MONITOR.
--- NOTE | 2020-02-24 12:30 | NUR ---
G-TUBE HAS BEEN DC AND REMOVED. PT TOLERATED WELL. OSTOMY BAG PLACED TO COLLECT LEAKAGE. CALL LIGHT WITHIN REACH. SAFETY PRECAUTIONS IN PLACE. NO S/S OF RESPIRATORY DISTRESS OR DISCOMFORT NOTED AT THIS TIME. WILL CONTINUE TO MONITOR.
--- NOTE | 2020-02-24 12:38 | NUR ---
SCHEDULED MEDICATION LASIX GIVEN AND TOLERATED WELL. CALL LIGHT WITHIN REACH. SAFETY PRECAUTIONS IN PLACE. NO S/S OF RESPIRATORY DISTRESS OR DISCOMFORT NOTED AT THIS TIME. WILL CONTINUE TO MONITOR.
--- NOTE | 2020-02-24 14:30 | NUR ---
ASSISTED WATER PUMPING STATION ENGINEER GARY WITH PERINEAL CARE AFTER INCONTINENT OF URINE. PT TOLERATED WELL. CALL LIGHT WITHIN REACH. SAFETY PRECAUTIONS IN PLACE. NO S/S OF RESPIRATORY DISTRESS OR DISCOMFORT NOTED AT THIS TIME. WILL CONTINUE TO MONITOR.
[2020-02-24] MEDS: METOCLOPRAMIDE 10 MG/2 ML INJ VIAL IVP SCH ×2 (14:54→21:17)
--- NOTE | 2020-02-24 14:54 | NUR ---
SCHEDULED MEDICATION REGLAN GIVEN AND TOLERATED WELL. CALL LIGHT WITHIN REACH. SAFETY PRECAUTIONS IN PLACE. NO S/S OF RESPIRATORY DISTRESS OR DISCOMFORT NOTED AT THIS TIME. WILL CONTINUE TO MONITOR.
[2020-02-24] MEDS: RIVAROXABAN 15 MG TAB GT SCH (17:00)
--- NOTE | 2020-02-24 17:11 | NUR ---
DR. GARCÍA AWARE OF PT POTASSIUM LEVEL OF 3.4 AND HE STATED "NO NEED TO REPLETE THAT." PT RESTING IN BED. CALL LIGHT WITHIN REACH. SAFETY PRECAUTIONS IN PLACE. NO S/S OF RESPIRATORY DISTRESS OR DISCOMFORT NOTED AT THIS TIME. WILL CONTINUE TO MONITOR.
--- NOTE | 2020-02-24 19:22 | NUR ---
ENDORSED PT CARE TO LOAN ADMINISTRATOR NURSE HAILEY BAUMANN FOR CONTINUITY OF CARE. PT STABLE AT THIS TIME.
--- NOTE | 2020-02-24 19:23 | NUR ---
RECEIVED PATIENT FROM DAY SHIFT ON PC 28 RR12, PEEP 6 29% FIO2. VENT PLUGGED INTO RED OUTLET. BMV AT BEDSIDE. TRACH SECURED AND INTACT. SX SCANT AMOUNT OF THICK WHITE SECRETION. DUONEB GIVEN VIA INLINE. NO RESPIRATORY DISTRESS NOTED. WILL CONTINUE TO MONITOR
--- NOTE | 2020-02-24 19:30 | NUR ---
RECEIVED BEDSIDE REPORT FROM DAY RN REGARDING THE PT FOR CONTINUITY OF CARE. PATIENT IS OBTUNDED,ON BEDREST. PT ON TRACH TO VENT. PT ON PC 28, RR-12, PEEP-6 FIo2- 29%, SATING 99%. TRACH SECURED AND INTACT. SCANTY AMOUNT OF THICK WHITE SECRETION NOTED. SUCTIONED THE PT NEEDED.PT NOT IN ANY DISTRESS. VSS, AFEBRILE.SINUS TACHYCARDIA ON TELE MONITOR HR-128 .FALL PRECAUTION IMPLEMENTED. BED IN LOW POSITION.SIDE RAILS UP AND BED ALARM ON.CALL LIGHT WITHIN REACH. WILL CONTINUE POC AND MONITORING.
[2020-02-24] MEDS: ATORVASTATIN 20 MG TAB GT SCH (21:00)
[2020-02-24] MEDS: LEVOFLOXACIN 250 MG/D5 PREMIX 50 ML IV SCH (21:16)
--- NOTE | 2020-02-24 21:30 | NUR ---
HELD ALL THE GT MEDICATIONS DUE TO PT G TUBE SITE IS LEAKING AND PULLED THE G TUBE OUT. GAVE THE ANTIBIOTIC AND REGLAN ORDERED. NO ADVERSE DRUG REACTION NOTED.WILL CONTINUE POC.
[2020-02-25] VITALS: BP 118/52
--- NOTE | 2020-02-25 | NUR ---
PATIENT VITAL SIGNS STABLE, AFEBRILE, SATING 99% ON TRACH TO VENT. A FIB ON HUMAN RESOURCES OPERATIONS MANAGER, HR-78. NO S/SX OF DISTRESS NOTED.CALL LIGHT WITHIN REACH. TURNING PATIENT Q2H. BED IN LOW POSITION
--- NOTE | 2020-02-25 02:00 | NUR ---
PATIENT ASLEEP AT THIS TIME. VISIBLE CHEST RISE AND FALL NOTED. NOT IN ANY DISTRESS. REPOSITIONED FOR COMFORT.
[2020-02-25] MEDS: ALBUTEROL SULFATE/IPRATROPIU 3 ML SOL IH SCH ×6 (02:12→23:45)
[2020-02-25 04:00] VITALS: BP 125/75
--- NOTE | 2020-02-25 04:00 | NUR ---
PATIENT VITAL SIGNS STABLE, AFEBRILE, SATING 100% ON TRACH TO VENT. UNCONTROLLED A-FIB ON CABIN SUPERVISOR, HR-133. NO COMPLAIN OF PAIN AT THIS TIME. NO S/SX OF DISTRESS NOTED.CALL LIGHT WITHIN REACH. BED IN LOW POSITION.
[2020-02-25] MEDS: NACL 0.9% 1,000 ML IV SCH (04:50)
[2020-02-25] MEDS: METOCLOPRAMIDE 10 MG/2 ML INJ VIAL IVP SCH ×3 (04:50→21:59)
[2020-02-25 05:32] LABS: BASOPHILS % (AUTO) 0.4 % (0.0-2.0); EOSINOPHILS % (AUTO) 0.6 % (0.0-4.0); HEMATOCRIT 24.8 % (36-48); HEMOGLOBIN 7.5 g/dL (12.0-16.0); LYMPHOCYTES # (AUTO) 0.7 K/uL (2.5-16.5); MEAN CORPUSCULAR HEMOGLOBIN 25 pg (27-31); MEAN CORPUSCULAR HGB CONC 30 g/dL (33-37); MEAN CORPUSCULAR VOLUME 81.6 fL (80-94); MONOCYTES # (AUTO) 0.5 K/uL (0.8-1.0); MONOCYTES % (AUTO) 9.6 % (1.7-9.3); NEUTROPHILS # (AUTO) 4.3 K/uL (1.8-7.7); NEUTROPHILS % (AUTO) 76.4 % (42.2-75.2); PLATELET COUNT (AUTO) 136 K/uL (140-450); RED BLOOD CELL COUNT(AUTO) 3.04 MIL/uL (4.20-5.40); RED CELL DISTRIBUTION WIDTH 20.1 % (11.6-13.7); WHITE BLOOD COUNT (AUTO) 5.7 K/uL (4.8-10.8)
[2020-02-25 05:53] LABS: ANION GAP 10.4 (8-16); CARBON DIOXIDE 32.4 mmol/L (21-32); CHLORIDE 104 mmol/L (98-107); CREATININE 0.9 mg/dL (0.6-1.3); GLUCOSE 181 mg/dL (74-106); SODIUM SERUM 144 mmol/L (136-145); UREA NITROGEN, BLOOD 39 mg/dL (7-18)
[2020-02-25 05:54] LABS: PHOSPHORUS 2.9 mg/dL (2.5-4.9)
[2020-02-25 06:07] LABS: POTASSIUM 2.8 mmol/L (3.5-5.1)
[2020-02-25] MEDS: LEVOTHYROXINE 0.075 MG TAB GT SCH (06:30)
[2020-02-25] MEDS: LANSOPRAZOLE 30 MG CAPDR GT SCH (06:30)
--- NOTE | 2020-02-25 07:48 | NUR ---
PATIENT STABLE. ENDORSED PT TO DAY RN FOR CONTINUITY OF CARE. SIGNING OFF.
--- NOTE | 2020-02-25 07:50 | NUR ---
RECEIVED PATIENT FROM NIGHT NURSE. PATIENT IN BED SLEEPING, NO ACUTE DISTRESS NOTED AT THIS TIME. RESP EVEN AND UNLABORED ON TRACH TO VENT. VENT SETTINGS: A/C PC FIO2 28 RR 12 PEEP 6 O2SAT 100%. RH 20G NOTED INFUSING NS 60ML/HR. PATIENT HAS COLOSTOMY BAG TO COLLECT DRAINAGE FROM PREVIOUS DISCONTINUED GTUBE. GENERALIZED EDEMA NOTED. PATIENT IS INCONTINENT AND BEDBOUND. WILL REPOSITIONED PATIENT FREQUENTLY. FALL PRECAUTION OBSERVED. CALL LIGHT WITHIN REACH. WILL CONTINUE TO MONITOR.
[2020-02-25 08:00] VITALS: BP 138/56
[2020-02-25] MEDS: CARBIDOPA/LEVODOPA 25/100 MG 1 TAB PO SCH ×2 (08:00→12:00)
[2020-02-25] MEDS: MEMANTINE 10 MG TAB GT SCH (09:00)
[2020-02-25] MEDS: LACTOBACILLUS RHAMNOSUS GG 1 EACH CAP GT SCH (09:00)
[2020-02-25] MEDS: MAGNESIUM HYDROXIDE 2400 MG/30 ML UDC GT SCH (09:00)
[2020-02-25] MEDS: DILTIAZEM 60 MG TAB GT SCH ×2 (09:00→22:05)
[2020-02-25] MEDS: DIGOXIN 0.125 MG/2.5 ML UDC GT SCH (09:00)
[2020-02-25] MEDS: FUROSEMIDE 20 MG/2 ML VIAL IVP SCH ×3 (10:01→22:34)
--- NOTE | 2020-02-25 10:11 | NUR ---
MORNING ROUTINE MEDICATIONS GIVEN. PATIENT GTUBE WAS DISCONTINUED D/T LEAKAGE YESTERDAY PER DR CASTAÑEDA. NO GT MEDICATIONS WERE GIVEN D/T LACK OF GTUBE. IVP MEDS GIVEN AT THIS TIME. DR JIMENEZ IS AWARE. PATIENT IS COMFORTABLE IN BED SLEEPING. RESP EVEN AND UNLABORED ON TRACH TO VENT. SCANT WHITE AMOUNT SUCTIONED. ORAL CARE GIVEN. VITALS ARE STABLE. 98.1 65 16 139/88 100%. SKIN IS WARM TO TOUCH AND INTACT. LFA 20G INFUSING NS 60ML/HR. COLOSTOMY BAG COLLECTING LIGHT BROWN CONTENT FROM GTUBE SITE. SAFETY MEASURES IN PLACE. WILL CONTINUE TO MONITOR.
[2020-02-25] MEDS ORDERED: POTASSIUM CHLORIDE 40 MEQ, LIDOCAINE MPF 1% 25 MG in NACL 0.9% 250 ML IV SCH (11:00)
--- NOTE | 2020-02-25 11:26 | NUR ---
PATIENT TURNED AND REPOSITIONED. O2SAT DROPPED TO 78%. RT WAS CALLED. INTERVENTION DONE AND PATIENT O2SAT RETURNED TO 100%. PATIENT WAS SUCTIONED AND ORAL CARE GIVEN. PERSONAL CARE RENDERED. PATIENT TOLERATED WELL. PATIENT IS ALERT TO SHAKING. FLACC-0. NO FACIAL GRIMACE NOTED. CALL LIGHT WITHIN REACH. WILL CONTINUE TO MONITOR.
[2020-02-25 12:00] VITALS: BP 139/69
--- NOTE | 2020-02-25 14:28 | NUR ---
PATIENT IS REPOSITIONED. PATIENT TOLERATING WELL. NO NOTED DISTRESS AT THIS TIME. PATIENT RESTING COMFORTABLY IN BED. WILL CONTINUE TO MONITOR.
--- NOTE | 2020-02-25 15:28 | NUR ---
02/25/20 RD FOLLOW UP COMPLETED PLEASE REFER TO NUTRITION ASSESSMENT UNDER CARE ACTIVITY FOR ESTIMATED NUTRITIONAL NEEDS. 1. RECOMMEND DEXTROSE IV DURING THE TIME THAT TUBE FEEDINGS ARE ON HOLD 2. IF/WHEN MEDICALLY STABLE CONSIDER GLUCERNA 1.2 @ 60 ML/HR X 24 HR -THIS WILL PROVIDE 1728 KCAL AND 86 GM OF PROTEIN, MEETING 100% OF KCAL AND PROTEIN NEEDS 3. RECOMMEND FREE WATER FLUSH OF [address] TO FOLLOW-UP 2-3 DAYS, HIGH RISK VALERIE ROCA RD
--- NOTE | 2020-02-25 15:28 | NUR ---
BREATHING TX NOT GIVEN DUE TO INCREASED HR > 120.
[2020-02-25] MEDS ORDERED: MAGNESIUM CITRATE 300 ML BTL PO SCH (15:53)
[2020-02-25 16:00] VITALS: BP 137/69
--- NOTE | 2020-02-25 16:25 | NUR ---
PATIENT RESTING IN BED COMFORTABLY. RESP EVEN AND UNLABORED ON TRACH TO VENT. NO NOTED ACUTE DISTRESS AT THIS TIME. PATIENT REPOSITIONED AND TURNED. PATIENT TOLERATED WELL. CALL LIGHT WITHIN REACH. WILL CONTINUE TO MONITOR.
--- NOTE | 2020-02-25 19:04 | NUR ---
NGT PLACED INTO LEFT NARE. PATIENT TOLERATED WELL. CONFIRMED WITH AUSCULTATION. CHEST XRAY ORDERED STAT TO CONFIRM PLACEMENT.
--- NOTE | 2020-02-25 19:19 | NUR ---
CHEST XRAY IS BEING DONE. ENDORSED GT MEDICATIONS TO NIGHT NURSE AFTER CONFIRMATION OF GTUBE BY XRAY. PATIENT IN STABLE CONDITION.
--- NOTE | 2020-02-25 19:25 | NUR ---
RECEIVED PATIENT FROM DAY SHIFT ON PC 28 RR12, PEEP 6 28% FIO2. VENT PLUGGED INTO RED OUTLET. BMV AT BEDSIDE. TRACH SECURED AND INTACT. SX SCANT AMOUNT OF THICK YELLOW SECRETION.NO HHN TX GIVEN DUE TO BEING CALLED BY ER. NO RESPIRATORY DISTRESS NOTED. WILL CONTINUE TO MONITOR
[2020-02-25 20:00] VITALS: BP 145/50
--- NOTE | 2020-02-25 20:00 | NUR ---
RECEIVED BEDSIDE REPORT FROM DAY RN REGARDING THE PT FOR CONTINUITY OF CARE. PATIENT IS OBTUNDED,ON BEDREST. PT ON TRACH TO VENT. PT ON PC 28, RR-12, PEEP-6 FIo2- 29%, SATING 100%. TRACH SECURED AND INTACT. SCANTY AMOUNT OF THICK WHITE SECRETION NOTED. SUCTIONED THE PT NEEDED.PT NOT IN ANY DISTRESS. VSS, AFEBRILE. AFIB ON TELE MONITOR HR-79. PATIENT HAD NGT TO THE LEFT NARES. CONFIRMED THE PLACEMENT BY AUSCULTATION AND CXR ALSO VERIFIED THE PLACEMENT.FALL PRECAUTION IMPLEMENTED. BED IN LOW POSITION.SIDE RAILS UP AND BED ALARM ON. HOB ELEVATED TO PREVENT ASPIRATION. IVF INFUSING ORDERED.CALL LIGHT WITHIN REACH. WILL CONTINUE POC AND MONITORING.
[2020-02-25] MEDS ORDERED: MAGNESIUM CITRATE 300 ML BTL ONE (21:20)
[2020-02-25] MEDS: POTASSIUM CHLORIDE 20% 40 MEQ/15 ML UDC GT SCH (21:32)
[2020-02-25] MEDS: LEVOFLOXACIN 250 MG/D5 PREMIX 50 ML IV SCH (21:32)
--- NOTE | 2020-02-25 22:00 | NUR ---
ADMINISTERED ALL THE MEDICATIONS ORDERED THROUGH THE NGT AND PT TOLERATED IT WELL. NO ADVERSE DRUG REACTION NOTED.
[2020-02-25] MEDS: ATORVASTATIN 20 MG TAB GT SCH (22:05)
[2020-02-25] MEDS: RIVAROXABAN 15 MG TAB GT SCH (22:05)
[2020-02-26] VITALS (10 sets, daily range): BP systolic 111–143; BP diastolic 47–83
--- NOTE | 2020-02-26 | NUR ---
PATIENT VITAL SIGNS STABLE, AFEBRILE, SATING 96% ON TRACH TO VENT. CONTROLLED A-FIB ON BIOLOGIST, HR-80. NO COMPLAIN OF PAIN AT THIS TIME. NO S/SX OF DISTRESS NOTED.CALL LIGHT WITHIN REACH. BED IN LOW POSITION. SIDE RAILS UP AND BED ALARM ON.
--- NOTE | 2020-02-26 02:00 | NUR ---
PATIENT ASLEEP AT THIS TIME. VISIBLE CHEST RISE AND FALL NOTED. NOT IN ANY DISTRESS. BED IN LOW POSITION. SIDE RAILS UP AND BED ALARM ON.
[2020-02-26] MEDS: ALBUTEROL SULFATE/IPRATROPIU 3 ML SOL IH SCH ×6 (02:13→23:00)
--- NOTE | 2020-02-26 04:00 | NUR ---
PATIENT VITAL SIGNS STABLE, AFEBRILE, SATING 98% ON TRACH TO VENT. UNCONTROLLED AFIB ON CONFIGURATION MANAGEMENT ARCHITECT, HR -117. NO COMPLAIN OF PAIN AT THIS TIME. NO S/SX OF DISTRESS NOTED.CALL LIGHT WITHIN REACH.
[2020-02-26] MEDS: LANSOPRAZOLE 30 MG CAPDR GT SCH (05:38)
[2020-02-26] MEDS: METOCLOPRAMIDE 10 MG/2 ML INJ VIAL IVP SCH ×3 (05:38→21:54)
[2020-02-26] MEDS: FUROSEMIDE 20 MG/2 ML VIAL IVP SCH ×3 (06:49→21:53)
--- NOTE | 2020-02-26 07:53 | NUR ---
PATIENT STABLE. ENDORSED PT TO DAY RN FOR CONTINUITY OF CARE. SIGNING OFF.
--- NOTE | 2020-02-26 07:54 | NUR ---
REPORT FROM WAFER CLEANER RN, PT ASLEEP, RESP REG NON-LABORED, TRACHE TO VENT, ON CONT PULSE OX AT 99%, P 74, PEG TUBE W/ DRAINAGE BAG W/ BEIGE COLOR DRAINAGE. NGT IN PLACE, IVF INFUSING AT 60 ML/HR. NAD NOTED.
[2020-02-26] MEDS: MAGNESIUM HYDROXIDE 2400 MG/30 ML UDC GT SCH (09:38)
[2020-02-26] MEDS: POTASSIUM CHLORIDE 20% 40 MEQ/15 ML UDC GT SCH ×3 (09:39→21:52)
[2020-02-26] MEDS: DIGOXIN 0.125 MG/2.5 ML UDC GT SCH (09:39)
[2020-02-26] MEDS: LACTOBACILLUS RHAMNOSUS GG 1 EACH CAP GT SCH (09:40)
[2020-02-26] MEDS: DILTIAZEM 60 MG TAB GT SCH ×2 (09:44→21:55)
--- NOTE | 2020-02-26 10:00 | NUR ---
MED PASS DONE VIA PEG, PT TOLERATED WELL. NAD NOTED.
--- NOTE | 2020-02-26 13:00 | NUR ---
ON ROUNDS PT ASLEEP, RESP REG NON-LABORED, IVF INFUSING PER ORDERS. NAD NOTED.
[2020-02-26 14:53] LABS: ANION GAP 12.5 (8-16); CARBON DIOXIDE 31.5 mmol/L (21-32); CHLORIDE 104 mmol/L (98-107); CREATININE 0.9 mg/dL (0.6-1.3); GLUCOSE 157 mg/dL (74-106); SODIUM SERUM 145 mmol/L (136-145); UREA NITROGEN, BLOOD 24 mg/dL (7-18)
--- NOTE | 2020-02-26 15:00 | NUR ---
IVF LEAKING, IV D/C'D, PENDING IV TO BE RE-SITED.
--- NOTE | 2020-02-26 16:30 | NUR ---
ON ROUNDS, NO CHANGE IN STATUS. PT ASLEEP AT INTERVALS, RESP REG NON-LABORED, IVF INFUSING PER ORDERS. NAD NOTED.
--- NOTE | 2020-02-26 17:20 | NUR ---
NEW IV STARTED TO R LOWER ARM. 20G, W/ GOOD BLOOD RETURN AND FLUSH, PT TOLERATED WELL. IVF RESUMED.
[2020-02-26] MEDS: RIVAROXABAN 15 MG TAB GT SCH (18:46)
--- NOTE | 2020-02-26 19:10 | NUR ---
REPORT TO UNDERWRITING SALES REPRESENTATIVE RN AT BEDSIDE, PAT ASLEEP NAD NOTED, RESP REG NON-LABORED.
--- NOTE | 2020-02-26 20:00 | NUR ---
RECEIVED BEDSIDE REPORT FROM DAY RN REGARDING THE PT FOR CONTINUITY OF CARE. PATIENT IS OBTUNDED,ON BEDREST. PT ON TRACH TO VENT. PT ON PC 28, RR-12, PEEP-6 FIo2- 29%, SATING 100%. TRACH SECURED AND INTACT. SCANTY AMOUNT OF THICK WHITE SECRETION NOTED. SUCTIONED THE PT NEEDED.PT NOT IN ANY DISTRESS. VSS, AFEBRILE. AFIB ON TELE MONITOR HR-117. PATIENT HAD NGT TO THE LEFT NARES. CONFIRMED THE PLACEMENT BY AUSCULTATION, NO RESIDUAL NOTED.PT NPO EXCEPT FOR MEDICATIONS ONLY.FALL PRECAUTION IMPLEMENTED. BED IN LOW POSITION.SIDE RAILS UP AND BED ALARM ON. HOB ELEVATED TO PREVENT ASPIRATION. IVF INFUSING ORDERED.CALL LIGHT WITHIN REACH. WILL CONTINUE POC AND MONITORING.
[2020-02-26] MEDS: LEVOFLOXACIN 250 MG/D5 PREMIX 50 ML IV SCH (21:51)
[2020-02-26] MEDS: ATORVASTATIN 20 MG TAB GT SCH (21:55)
--- NOTE | 2020-02-26 22:00 | NUR ---
ADMINISTERED ALL THE MEDICATIONS ORDERED THROUGH THE NGT AND PT TOLERATED IT WELL. NO ADVERSE DRUG REACTION NOTED.
[2020-02-27] VITALS (10 sets, daily range): BP systolic 100–128; BP diastolic 49–73
--- NOTE | 2020-02-27 | NUR ---
PATIENT VITAL SIGNS STABLE, AFEBRILE, SATING 98% ON TRACH TO VENT. CONTROLLED A-FIB ON COURTROOM DEPUTY, HR-90. NO COMPLAIN OF PAIN AT THIS TIME. NO S/SX OF DISTRESS NOTED.CALL LIGHT WITHIN REACH. BED IN LOW POSITION. SIDE RAILS UP AND BED ALARM ON.
[2020-02-27] MEDS: NACL 0.9% 1,000 ML IV SCH (00:23)
--- NOTE | 2020-02-27 02:00 | NUR ---
PATIENT ASLEEP AT THIS TIME. VISIBLE CHEST RISE AND FALL NOTED. NOT IN ANY DISTRESS. BED IN LOW POSITION. SIDE RAILS UP AND BED ALARM ON.
[2020-02-27] MEDS: ALBUTEROL SULFATE/IPRATROPIU 3 ML SOL IH SCH ×6 (03:00→22:50)
--- NOTE | 2020-02-27 04:00 | NUR ---
PATIENT VITAL SIGNS STABLE, AFEBRILE, SATING 98% ON TRACH TO VENT. CONTROLLED AFIB ON HIGHWALL DRILL OPERATOR, HR -74. NO COMPLAIN OF PAIN AT THIS TIME. NO S/SX OF DISTRESS NOTED.CALL LIGHT WITHIN REACH. BED IN LOW POSITION AND SIDE RAILS UP. BED ALARM ON.
[2020-02-27] MEDS: METOCLOPRAMIDE 10 MG/2 ML INJ VIAL IVP SCH ×3 (05:34→20:16)
[2020-02-27] MEDS: LANSOPRAZOLE 30 MG CAPDR GT SCH (05:34)
[2020-02-27 06:14] LABS: BASOPHILS % (AUTO) 0.3 % (0.0-2.0); EOSINOPHILS % (AUTO) 0.6 % (0.0-4.0); HEMATOCRIT 26.7 % (36-48); HEMOGLOBIN 8.2 g/dL (12.0-16.0); LYMPHOCYTES # (AUTO) 0.6 K/uL (2.5-16.5); LYMPHOCYTES % (AUTO) 8.8 % (20.5-51.1); MEAN CORPUSCULAR HEMOGLOBIN 25 pg (27-31); MEAN CORPUSCULAR HGB CONC 31 g/dL (33-37); MEAN CORPUSCULAR VOLUME 80.2 fL (80-94); MONOCYTES # (AUTO) 0.6 K/uL (0.8-1.0); MONOCYTES % (AUTO) 8.1 % (1.7-9.3); NEUTROPHILS % (AUTO) 82.2 % (42.2-75.2); PLATELET COUNT (AUTO) 178 K/uL (140-450); RED BLOOD CELL COUNT(AUTO) 3.33 MIL/uL (4.20-5.40); RED CELL DISTRIBUTION WIDTH 20.4 % (11.6-13.7); WHITE BLOOD COUNT (AUTO) 7.3 K/uL (4.8-10.8)
--- NOTE | 2020-02-27 06:49 | NUR ---
rec'd pt on carescape vent settings pc28 rr 12, itime 0.60 peep 6 fio2 28% alarms on and audible and vent is plugged into red outlet, bvm at [facility], i\l tx given with duoneb 3ml with no adverse reaction post tx b\s are coarse bilaterall, sxn pt small amt of thin white secretions, pt is trach with portex 7 and pt is sleeping with no signs of distress noted at this time, will continue to monitor pt
--- NOTE | 2020-02-27 07:25 | NUR ---
RECEIVED REPORT FROM WATER JET OPERATOR NURSE. PATIENT LYING DOWN IN BED. NO DISTRESS NOTED. FLACC 0. APHASIC, AWAKENS UPON TOUCH AND ABLE TO TRACK WITH EYES. RESPIRATIONS EVEN, UNLABORED, ON TRACH TO VENT WITH SETTINGS A/C PC, FIO2:28%, PINSP:28, RATE:12, PEEP:6, PMAX:50 WITH O2 SAT AT 98%. IV SITE INTACT, PATENT AND INFUSING IVF PER MD ORDERS. GTUBE SITE DRAINING IN COLOSTOMY BAG, 300 ML OUT PER NIGHT RN, SITE HAS ODOR. LEFT NARE NGTUBE IN PLACE, PATIENT NPO EXCEPT MEDS AT THIS TIME. REVIEWED PLAN OF CARE WITH PATIENT. UNABLE TO COMPREHEND. SAFETY MEASURES IN PLACE, CALL LIGHT WITHIN REACH. WILL CONTINUE TO MONITOR.
[2020-02-27] MEDS: DILTIAZEM 60 MG TAB GT SCH ×2 (09:44→20:16)
[2020-02-27] MEDS: LACTOBACILLUS RHAMNOSUS GG 1 EACH CAP GT SCH (09:44)
[2020-02-27] MEDS: POTASSIUM CHLORIDE 20% 40 MEQ/15 ML UDC GT SCH ×4 (09:45→17:24)
[2020-02-27] MEDS: FUROSEMIDE 20 MG/2 ML VIAL IVP SCH ×4 (09:45→17:24)
[2020-02-27] MEDS: DIGOXIN 0.125 MG/2.5 ML UDC GT SCH (09:45)
[2020-02-27] MEDS: MAGNESIUM HYDROXIDE 2400 MG/30 ML UDC GT SCH (09:47)
--- NOTE | 2020-02-27 10:04 | NUR ---
SCHEDULED MEDICATIONS DUE GIVEN. WILL CONTINUE TO MONITOR.
--- NOTE | 2020-02-27 12:01 | NUR ---
POTASSIUM 20 MEQ AND FUROSEMIDE SCHEDULED AT 1100 NOT GIVEN FREQUENCY INCREASED TO TID BY DR. CASTAÑEDA AND ALREADY GAVE A DOSE THIS AM AT 0900. WILL CONTINUE TO MONITOR.
--- NOTE | 2020-02-27 14:16 | NUR ---
NGTUBE FEEDING STARTED PER MD ORDERS. SCHEDULED MEDICATIONS DUE GIVEN. WILL CONTINUE TO MONITOR.
--- NOTE | 2020-02-27 17:00 | NUR ---
ASSISTED FEDERAL MEDIATOR IN CLEANING AND REPOSITIONING PATIENT. WILL CONTINUE TO MONITOR.
[2020-02-27] MEDS: RIVAROXABAN 15 MG TAB GT SCH (17:24)
--- NOTE | 2020-02-27 17:25 | NUR ---
SCHEDULED MEDICATIONS DUE GIVEN. WILL CONTINUE TO MONITOR.
--- NOTE | 2020-02-27 19:25 | NUR ---
GAVE REPORT TO RADIATOR MECHANIC NURSE FOR CONTINUITY OF CARE PATIENT.
--- NOTE | 2020-02-27 19:26 | NUR ---
RECEIVED BEDSIDE REPORT FROM DAY RN. PATIENT LYING DOWN IN BED APHASIC, AWAKENS UPON TOUCH AND ABLE TO TRACK WITH EYES. RESPIRATIONS EVEN, UNLABORED, ON TRACH TO VENT WITH SETTINGS A/C PC, FIO2:28%, RATE:12, PEEP:6, PMAX:50 WITH O2 SAT AT 98%. RR 18. IV ON R MARTINI 22G SL, SITE INTACT, AND PATENT. G-TUBE SITE DRAINING IN COLOSTOMY BAG, 280 ML OUT PER DAY RN, SITE HAS ODOR WITH MINIMAL LIGHT/CLEAR YELLOW DRAINAGE. LEFT NARE NG TUBE IN PLACE, WITH GLUCERNA 1.2 20ML WITH FWF 10ML/Q6H. PT IS INCONTINENT, NO EDEMA NOTED. SKIN IS INTACT BESIDES OLD G-TUBE SITE ON LUQ. ON STANDARD ISOLATION. REVIEWED PLAN OF CARE WITH PATIENT. UNABLE TO COMPREHEND. SAFETY MEASURES IN PLACE, CALL LIGHT WITHIN REACH. WILL CONTINUE TO MONITOR.
[2020-02-27] MEDS: ATORVASTATIN 20 MG TAB GT SCH (20:16)
--- NOTE | 2020-02-27 20:16 | NUR ---
VSS. PT WITH <10CC GASTRIC RESIDUAL, CARITO MEDICATION CRUSHED AND GIVEN VIA NG TUBE. MED EDUCATION GIVEN UNABLE TO COMPREHEND. ABD IS ROUND AND SOFT, BOWEL SOUNDS ARE ACITVEX4, ORAL CARE PROVIDED PT TOLERATED WELL. HOB ELEVATED. ALL NEEDS MET. CALL LIGHT IS WITHIN REACH. WILL CONTINUE TO MONITOR.
--- NOTE | 2020-02-27 22:00 | NUR ---
PT WAS CLEANED AND REPOSITION FOR COMFORT. DEEP SUCTION MOD AMOUNT OF WHITE THICK SECRETIONS. HOB ELEVATED. SAFETY MEASURES IN PLACE. WILL CONTINUE TO MONITOR.
[2020-02-28] VITALS (9 sets, daily range): BP systolic 108–134; BP diastolic 49–72
--- NOTE | 2020-02-28 | NUR ---
VITAL SIGNS ARE WITHIN NORMAL LIMITS. ORAL CARE PROVIDED. HOB ELEVATED. ALL SAFETY MEASURES ARE IN PLACE. WILL CONTINUE TO MONITOR.
[2020-02-28] MEDS: ALBUTEROL SULFATE/IPRATROPIU 3 ML SOL IH SCH ×6 (02:07→23:17)
--- NOTE | 2020-02-28 02:10 | NUR ---
ROUNDS MADE. PT REMAINS ON SAME VENT SETTINGS SAT WELL 97% RR 16 HOB ELEVATED. [facility] S[facility] MEASURES IN [facility]ACE. WILL CONTINUE TO MONITOR.
--- NOTE | 2020-02-28 02:41 | NUR ---
PT HEART RATE INCREASED TO 136. SUCTIONED THICK WHITE SECRETIONS AND HEART RATE BACK DOWN. WILL CONTINUE TO MONITOR.
--- NOTE | 2020-02-28 04:16 | NUR ---
VITAL SIGNS ARE WITHIN NORMAL LIMITS. ALL SAFETY MEASURES ARE IN PLACE. WILL CONTINUE TO MONITOR. Addendum: 02/28/20 at 0450 by Rashida Kiran RN CONNIE MARQUIS ON SEMICONDUCTOR BONDER HR RANGE BETWEEN 90-110BPM.
[2020-02-28] MEDS: LANSOPRAZOLE 30 MG CAPDR GT SCH (05:40)
[2020-02-28] MEDS: METOCLOPRAMIDE 10 MG/2 ML INJ VIAL IVP SCH ×3 (05:40→20:21)
--- NOTE | 2020-02-28 06:01 | NUR ---
PT REMAINS ON SETTINGS RECEIVED AND DOCUMENTED PC 28 +6, f 12, Ti O.8 28% AND VENT PLUGGED INTO RED OUTLET
--- NOTE | 2020-02-28 07:05 | NUR ---
WILL ENDORSE TO DAY RN. PT IS STABLE.
--- NOTE | 2020-02-28 07:10 | NUR ---
RECEIVED BEDSIDE ENDORSEMENT FROM NIGHTSORFT NURSE. PATIENT RESTING IN BED. FLACC 0, RESPIRATIONS ARE EVEN AND UNLABORED. NO SIGNS OF DISTRESS NOTED. PATIENT TRACH TO VENT A/C PC, FIO2 28%, RR 12, PEEP 6; AMBU BAG AT BEDSIDE, PLUGS ARE IN RED OUTLET. NG IN L NOSTRIL IS PATENT CLEAN AND DRY. RUNNING GLUCERNA 1.2 @20ML W/ Q6 WATER FLUSH. COLOSTOMY DRAINING BROWN STOOL. SKIN CLEAN AND DRY TO TOUCH W/ R HAND 20G IV CLEAN DRY INTACT AND PATENT. SAFETY MEASURES IN PLACE. WILL CONT TO MONITOR.
--- NOTE | 2020-02-28 08:57 | NUR ---
(02/28/20) RD FOLLOW UP COMPLETED PLEASE REFER TO NUTRITION PROGRESS NOTE UNDER CARE ACTIVITY FOR ESTIMATED NUTRITION NEEDS. RD RECOMMENDATIONS: 1. CONTINUE ON TF GLUCERNA 1.2 AT 20 ML/HR WITH FWF 10 ML/HR Q6H TOLERATED. 2. RECOMMEND ADVANCE TF GLUCERNA 1.2 BY 10 ML/HR Q4H TOLERATED, UNTIL GOAL OF 60 ML/HR X 24 HR IS REACHED. THIS WILL PROVIDE 1728 KCAL AND 86 GM OF PROTEIN, MEETING 100% OF KCAL AND PROTEIN NEEDS 3. IF/WHEN MEDICALLY APPORRIATE, RECOMMEND INCREASING FREE WATER FLUSH TO [address] TO FOLLOW-UP 2-3 DAYS, HIGH RISK SAMANTHA ALMANZA, MS, RDN
[2020-02-28] MEDS: MAGNESIUM HYDROXIDE 2400 MG/30 ML UDC GT SCH (09:28)
[2020-02-28] MEDS: POTASSIUM CHLORIDE 20% 40 MEQ/15 ML UDC GT SCH ×3 (09:29→16:53)
[2020-02-28] MEDS: DIGOXIN 0.125 MG/2.5 ML UDC GT SCH (09:29)
[2020-02-28] MEDS: FUROSEMIDE 20 MG/2 ML VIAL IVP SCH ×3 (09:30→16:53)
[2020-02-28] MEDS: DILTIAZEM 60 MG TAB GT SCH ×2 (09:32→20:21)
[2020-02-28] MEDS: LACTOBACILLUS RHAMNOSUS GG 1 EACH CAP GT SCH (09:32)
[2020-02-28] MEDS: SPIRONOLACTONE 50 MG TAB PO SCH (09:32)
--- NOTE | 2020-02-28 09:53 | NUR ---
ADMINISTERED SCHED MEDS PRESCRIBED BY MD ORDER. PATIENT TOLERATED WELL. PATIENT APHASIC, UNABLE TO RETURN MEDICATION EDUCATION PROVIDED. SAFETY MEASURES IN PLACE. WILL CONT TO MONITOR
--- NOTE | 2020-02-28 10:15 | NUR ---
CALLED RADIOLOGY TO SEE WHAT TIME PATIENT US GUIDED PARACENTESIS WILL BE AND [facility] GLASSWARE REPLACER SAID THAT THE PROCEDURE WILL BE DONE FIRST THING IN THE MORNING ON SATURDAY. MD AND CHARGE AWARE. WILL CONTINUE TO MONITOR
--- NOTE | 2020-02-28 11:38 | NUR ---
OBTAINED CONSENT FOR US GUIDED PARACENTESIS FOR 02/29/20. OBTAINED CONSENT FROM ERIN DUE TO PATIENT UNABLE TO MAKE DECISIONS. WENDY'D W/ 2ND NURSE. PLACED IN CHART FOR MD TO SIGN. SAFETY MEASURES IN PLACE. WILL CONT TO MONITOR
--- NOTE | 2020-02-28 12:16 | NUR ---
V/S OBTAINED. PT RESTING IN BED. FLACC 0. RESPIRATIONS EVEN AND UNLABORED WITH NO SOB OR RESPIRATORY DISTRESS. SKIN WARM AND DRY TO TOUCH. SAFETY MEASURES IN PLACE. WILL CONTINUE TO MONITOR
[2020-02-28] MEDS: RIVAROXABAN 15 MG TAB GT SCH (13:37)
--- NOTE | 2020-02-28 13:39 | NUR ---
ADMINISTERED SCHED MEDS PRESCRIBED BY MD ORDER. PATIENT TOLERATED WELL. PATIENT IS APHASIC, UNABLE TO RETURN MED EDUCATION DEMONSTRATION. PT HAS US GUIDED PARACENTESIS ON 02/29/20, HELD SCHEDULED MD ORDER FOR XARELTO AT 1700. SAFETY MEASURES IN PLACE. WILL CONT TO MONITOR
--- NOTE | 2020-02-28 14:30 | NUR ---
PATIENT RESTING IN BED. NG TUBE FEEDING . REMOVED PATIENT LABELS AND DISCARDED IN TRASH. OBTAINED NEW NG TUBE FORMULA AND TUBING SET. CONNECTED TO PATIENT. PATIENT TOLERATING WELL. SAFETY MEASURES IN PLACE. WILL CONT TO MONITOR.
--- NOTE | 2020-02-28 16:30 | NUR ---
REC'D CALL FROM PATIENT'S DAUGHTER. STATED SHE WILL COME VISIT PATIENT VIA WINDOW VISIT W/IN THE NEXT HOUR. OPENED PATIENT'S WINDOW BLINDS SO THAT FAMILY CAN SEE HER WHEN THEY GET HERE.
--- NOTE | 2020-02-28 19:18 | NUR ---
BEDSIDE ENDORSEMENT TO NIGHTSHIFT NURSE. PATIENT IS STABLE. SAFETY MEASURES IN PLACE
--- NOTE | 2020-02-28 19:19 | NUR ---
RECEIVED BEDSIDE REPORT FROM DAY RN. PATIENT LYING DOWN IN BED APHASIC, AWAKENS UPON TOUCH AND ABLE TO TRACK WITH EYES. RESPIRATIONS EVEN, UNLABORED, ON TRACH TO VENT WITH SETTINGS A/C PC, FIO2:28%, RATE:12, PEEP:6, PMAX:50 WITH O2 SAT AT 98%. RR 18. IV ON R MARTINI 22G SL, SITE INTACT, AND PATENT. OLD G-TUBE SITE DRAINING IN COLOSTOMY BAG, WITH 500 ML OUT PER DAY RN, SITE HAS ODOR WITH MINIMAL LIGHT/CLEAR YELLOW DRAINAGE. LEFT NARE NG TUBE IN PLACE, WITH GLUCERNA 1.2 20ML WITH FWF 10ML/Q6H. PT IS INCONTINENT, ANASARCA. ABD BIG AND ROUND PLAN TO HAVE PARACENTESIS TOMORROW AM CONSENT IN CHART. PT IS BEDBOUND ON WOUND BED. SKIN IS INTACT BESIDES OLD G-TUBE SITE ON LUQ. ON STANDARD ISOLATION. REVIEWED PLAN OF CARE WITH PATIENT. UNABLE TO COMPREHEND. SAFETY MEASURES IN PLACE, CALL LIGHT WITHIN REACH. WILL CONTINUE TO MONITOR.
[2020-02-28] MEDS: ATORVASTATIN 20 MG TAB GT SCH (20:21)
--- NOTE | 2020-02-28 20:21 | NUR ---
VSS. PT WITH NO RESIDUALS. CARITO MEDICATIONS CRUSHED AND GIVEN VIA NG TUBE. MED EDUCATION GIVEN PT UNABLE TO COMPREHEND. PT OLD G-TUBE SITE DRAINING CLEAR/YELLOW FLUID INTO COLOSTOMY BAG. ORAL CARE PROVIDED PT TOLERATED WELL. DEEP SUCTION MODERATE AMOUNT OF WHITE THICK SECRETIONS. HOB ELEVATED. WILL CONTINUE TO MONITOR.
--- NOTE | 2020-02-28 22:00 | NUR ---
PT WAS CLEANED AND REPOSITION WITH ASSISTANCE OF CANDY SEPARATOR HARD. DEEP SUCTION SMALL AMOUNT OF WHITE THICK SECRETIONS. HOB ELEVATED. ALL SAFETY MEASURES ARE IN PLACE. WILL CONTINUE TO MONITOR.
[2020-02-29] VITALS (8 sets, daily range): BP systolic 102–143; BP diastolic 48–88
--- NOTE | 2020-02-29 | NUR ---
VITAL SIGNS ARE WITHIN NORMAL LIMITS. ORAL CARE PROVIDED PT TOLERATED WELL. HOB ELEVATED. ALL SAFETY MEASURES ARE IN PLACE. CALL LIGHT IS WITHIN REACH. WILL CONTINUE TO MONITOR.
--- NOTE | 2020-02-29 02:38 | NUR ---
ROUNDS MADE. PT SLEEPING COMFORTABLY IN BED WITH EYES CLOSED. REMAINS ON SAME VENT SETTINGS. SAT WELL 97% RR 17. HOB ELEVATED. CHEST RISE AND FALL NOTED. WILL CONTINUE TO MONITOR.
[2020-02-29] MEDS: ALBUTEROL SULFATE/IPRATROPIU 3 ML SOL IH SCH ×6 (03:32→23:00)
--- NOTE | 2020-02-29 04:10 | NUR ---
VSS. ORAL CARE PROVIDED. HOB ELEVATED. ALL SAFETY MEASURES IN PLACE. WILL CONTINUE TO MONITOR.
[2020-02-29 05:02] LABS: BASOPHILS % (AUTO) 0.3 % (0.0-2.0); EOSINOPHILS # (AUTO) 0.1 K/uL (0-0.4); EOSINOPHILS % (AUTO) 0.8 % (0.0-4.0); HEMATOCRIT 26.7 % (36-48); HEMOGLOBIN 8.3 g/dL (12.0-16.0); LYMPHOCYTES # (AUTO) 1.2 K/uL (2.5-16.5); LYMPHOCYTES % (AUTO) 13.7 % (20.5-51.1); MEAN CORPUSCULAR HEMOGLOBIN 25 pg (27-31); MEAN CORPUSCULAR HGB CONC 31 g/dL (33-37); MEAN CORPUSCULAR VOLUME 79.2 fL (80-94); MONOCYTES # (AUTO) 0.8 K/uL (0.8-1.0); MONOCYTES % (AUTO) 9.4 % (1.7-9.3); NEUTROPHILS # (AUTO) 6.6 K/uL (1.8-7.7); NEUTROPHILS % (AUTO) 75.8 % (42.2-75.2); PLATELET COUNT (AUTO) 185 K/uL (140-450); RED BLOOD CELL COUNT(AUTO) 3.37 MIL/uL (4.20-5.40); RED CELL DISTRIBUTION WIDTH 19.7 % (11.6-13.7); WHITE BLOOD COUNT (AUTO) 8.6 K/uL (4.8-10.8)
[2020-02-29 05:15] LABS: ANION GAP 9.8 (8-16); CARBON DIOXIDE 38.7 mmol/L (21-32); CHLORIDE 103 mmol/L (98-107); CREATININE 0.9 mg/dL (0.6-1.3); GLUCOSE 154 mg/dL (74-106); SODIUM SERUM 149 mmol/L (136-145); UREA NITROGEN, BLOOD 14 mg/dL (7-18)
[2020-02-29] MEDS: LANSOPRAZOLE 30 MG CAPDR GT SCH (05:48)
[2020-02-29] MEDS: METOCLOPRAMIDE 10 MG/2 ML INJ VIAL IVP SCH ×3 (05:48→20:48)
[2020-02-29 06:22] LABS: POTASSIUM 2.5 mmol/L (3.5-5.1)
[2020-02-29] MEDS ORDERED: KCL 20 MEQ/WATER INJ PREMIX 200 ML IV ONE (07:00)
[2020-02-29] MEDS ORDERED: POTASSIUM CHLORIDE 20% 40 MEQ/15 ML UDC GT ONE (07:00)
--- NOTE | 2020-02-29 07:06 | NUR ---
K DUR 40MEQ GIVEN VIA NG TUBE PER ORDERS FOR K 2.5. K RIDER NOW INFUSING PER ORDERS. PT IS STABLE WITH HOB ELEVATED. SAFETY MEASURES IN PLACE. WILL ENDORSE TO DAY RN.
--- NOTE | 2020-02-29 07:15 | NUR ---
RECEIVED PATIENT FROM PHYSICAL PLANT MANAGER NURSE DILCIA FOR CONTINUITY OF CARE. PATIENT IN STABLE CONDITION. RESPIRATIONS EVEN AND UNLABORED, TRACH TO VENT. IV INTACT AND PATENT. SAFETY MEASURES IN PLACE. BED IN LOW POSITION. BED ALARM ON. CALL LIGHT WITHIN REACH. WILL CONTINUE TO MONITOR.
--- NOTE | 2020-02-29 08:42 | NUR ---
PT. ADMITTED WITH LOW THANH SCALE AT RISK, CONTINUE TO FOLLOW PRESSURE ULCER PREVENTION INTERVENTIONS. -TURN AND REPOSITION PATIENT Q 2H -ASSESS AND MONITOR SKIN CONDITION DURING POSITION CHANGE -OFFLOAD BILATERAL HEELS BY PLACING PILLOWS UNDER CALVES AT ALL TIMES, UNLESS OTHERWISE CONTRAINDICATED -PRESSURE REDISTRIBUTION BY PLACING PILLOWS AND OFFLOADING SACRALCOCCYX -KEEP SKIN CLEAN AND DRY AT ALL TIMES.
[2020-02-29] MEDS: MAGNESIUM HYDROXIDE 2400 MG/30 ML UDC GT SCH (08:43)
[2020-02-29] MEDS: SPIRONOLACTONE 50 MG TAB PO SCH ×3 (08:43→20:46)
[2020-02-29] MEDS: FUROSEMIDE 20 MG/2 ML VIAL IVP SCH ×2 (08:43→14:58)
[2020-02-29] MEDS: DIGOXIN 0.125 MG/2.5 ML UDC GT SCH (08:43)
[2020-02-29] MEDS: LACTOBACILLUS RHAMNOSUS GG 1 EACH CAP GT SCH (08:43)
[2020-02-29] MEDS: DILTIAZEM 60 MG TAB GT SCH ×2 (08:44→09:11)
--- NOTE | 2020-02-29 09:06 | NUR ---
GAVE ORDERED DUE MEDICATIONS AT THIS TIME. PATIENT TOLERATED WELL. BED IN LOW POSITION. CALL LIGHT WITHIN REACH. BED ALARM ON. WILL CONTINUE TO MONITOR.
[2020-02-29 09:28] LABS: PROTHROMBIN TIME 13.1 secs (10.8-13.4)
--- NOTE | 2020-02-29 10:00 | NUR ---
ASSISTED WITH CLEANING AND CHANGING LINEN AT THIS TIME. PATIENT TOLERATED WELL. BED IN LOW POSITION. BED ALARM ON. CALL LIGHT WITHIN REACH. WILL CONTINUE TO MONITOR.
--- NOTE | 2020-02-29 11:40 | NUR ---
PARACENTESIS PROCEDURE AT THIS TIME. 1,750ML REMOVED. PATIENT IN STABLE CONDITION.
--- NOTE | 2020-02-29 13:45 | NUR ---
ASSISTED WITH CLEANING AFTER URINATION. PATIENT TOLERATED WELL. BED IN LOW POSITION. BED ALARM ON. CALL LIGHT WITHIN REACH. WILL CONTINUE TO MONITOR.
[2020-02-29 14:20] LABS: ANION GAP 9.4 (8-16); CARBON DIOXIDE 38.4 mmol/L (21-32); CHLORIDE 104 mmol/L (98-107); CREATININE 0.8 mg/dL (0.6-1.3); GLUCOSE 157 mg/dL (74-106); SODIUM SERUM 149 mmol/L (136-145); UREA NITROGEN, BLOOD 13 mg/dL (7-18)
[2020-02-29 14:26] LABS: POTASSIUM 2.8 mmol/L (3.5-5.1)
--- NOTE | 2020-02-29 16:15 | NUR ---
LIZZETTE NASSAR REMOVED COLOSTOMY BAG AND PLACED G-TUBE AT THIS TIME. NG TUBE FEED DISCONTINUED, INTERMITTENT SUCTION PLACED. MEDICATIONS TO BE GIVEN AT G-TUBE SITE OR NG TUBE SITE, AND CLAMP THE NG TUBE FOR 3 HOURS AFTER MEDICATION IS GIVEN. PER LIZZETTE NASSAR. Addendum: 02/29/20 at 1641 by Liv Zhang RN LOW INTERMITTENT SUCTION FOR NG TUBE.
[2020-02-29] MEDS ORDERED: BUMETANIDE 1 MG/4 ML VIAL IV SCH (17:00)
[2020-02-29] MEDS ORDERED: MAG SULF 2000 MG/WATER PREMIX 50 ML IV PRN (17:35)
[2020-02-29] MEDS ORDERED: POTASSIUM CHLORIDE 10 MEQ TABER PO PRN (17:35)
[2020-02-29] MEDS: RIVAROXABAN 15 MG TAB GT SCH (17:37)
--- NOTE | 2020-02-29 17:55 | NUR ---
ASSISTED WITH CLEANING AFTER URINATION. PATIENT TOLERATED WELL. BED IN LOW POSITION. BED ALARM ON. CALL LIGHT WITHIN REACH. WILL CONTINUE TO MONITOR.
--- NOTE | 2020-02-29 19:35 | NUR ---
GAVE REPORT TO DINKEY OPERATOR SLATE NURSE FOR CONTINUITY OF CARE. ENDORSED MEDICATION ADMINISTRATION AND INTERMITTENT SUCTION PER DR. SALVADOR. PATIENT IN STABLE CONDITION.
--- NOTE | 2020-02-29 19:35 | NUR ---
RECEIVED REPORT FROM AIME RNTRENTON. PT APHASIC. TRACH TO VENT. RESPIRATIONS EVEN AND UNLABORED. NO S/S RESPIRATORY DISTRESS. IV SITE R HAND 20G, PATENT AND INTACT, S.L. G TUBE IN PLACE, PATENT AND INTACT. SAFETY MEASURES IN PLACE. BED ALARM ON. CALL LIGHT WITHIN REACH. WILL CONTINUE TO MONITOR
--- NOTE | 2020-02-29 19:38 | NUR ---
PT RECEIVED ON SETTINGS DOCUMENTED DUO WAS NOT GIVEN DUE TO INCREASED HR 140 PT WAS Sx (BAKARI THK YLW/WTE) AMBU AT BEDSIDE AND VENT PLUGGED INTO RED OUTLET WILL CONTINUE TO MONITOR
[2020-02-29] MEDS: LACTULOSE 20 GM/30 ML UDC PO SCH (20:46)
[2020-02-29] MEDS: ATORVASTATIN 20 MG TAB GT SCH (20:47)
[2020-02-29] MEDS: DILTIAZEM 30 MG TAB GT SCH (20:47)
[2020-02-29] MEDS: SENNA 8.6 MG TAB PO SCH (20:47)
[2020-02-29] MEDS: POTASSIUM CHLORIDE 20% 40 MEQ/15 ML UDC GT SCH (20:48)
--- NOTE | 2020-02-29 21:12 | NUR ---
HELD SUCTION. WILL CONTINUE AFTER 3 HOURS
--- NOTE | 2020-02-29 21:12 | NUR ---
ADMINISTERED SCHEDULED MEDS. PT TOLERATED WELL. NO DISTRESS NOTED. WILL CONTINUE TO MONITOR
[2020-02-29 22:35] LABS: ANION GAP 11.2 (8-16); CARBON DIOXIDE 37.6 mmol/L (21-32); CHLORIDE 103 mmol/L (98-107); CREATININE 0.9 mg/dL (0.6-1.3); GLUCOSE 167 mg/dL (74-106); POTASSIUM 3.8 mmol/L (3.5-5.1); SODIUM SERUM 148 mmol/L (136-145); UREA NITROGEN, BLOOD 14 mg/dL (7-18)
--- NOTE | 2020-02-29 23:00 | NUR ---
PT ASLEEP IN BED. RESPIRATIONS EVEN AND UNLABORED. NO DISTRESS NOTED. WILL CONTINUE TO MONITOR
[2020-03-01] VITALS (16 sets, daily range): BP systolic 94–128; BP diastolic 44–89
--- NOTE | 2020-03-01 00:12 | NUR ---
CONTINUED LOW INTERMITTENT SUCTION. NO DISTRESS NOTED. WILL CONTINUE TO MONITOR
--- NOTE | 2020-03-01 01:15 | NUR ---
GREENISH MODERATE DRAINAGE ON G TUBE DRESSING. CLEANED AND CHANGED DRESSING ON G TUBE. NO DISTRESS NOTED. WILL CONTINUE TO MONITOR
--- NOTE | 2020-03-01 01:30 | NUR ---
CLEANED, CHANGED, REPOSITIONED PT, TOLERATED WELL. NO DISTRESS NOTED. WILL CONTINUE TO MONITOR
[2020-03-01] MEDS: ALBUTEROL SULFATE/IPRATROPIU 3 ML SOL IH SCH ×6 (03:00→23:05)
--- NOTE | 2020-03-01 03:03 | NUR ---
PT ASLEEP IN BED. RESPIRATIONS EVEN AND UNLABORED. NO DISTRESS NOTED. WILL CONTINUE TO MONITOR
[2020-03-01] MEDS: METOCLOPRAMIDE 10 MG/2 ML INJ VIAL IVP SCH ×3 (04:06→20:46)
[2020-03-01] MEDS: DILTIAZEM 30 MG TAB GT SCH ×3 (04:08→20:45)
--- NOTE | 2020-03-01 04:29 | NUR ---
RT AT BEDSIDE. PROVIDED TRACH AND ORAL CARE. PT TOLERATED WELL. NO DISTRESS NOTED. HOB ELEVATED. SAFETY MEASURES IN PLACE. WILL CONTINUE TO MONITOR
[2020-03-01 05:10] LABS: BASOPHILS % (AUTO) 0.2 % (0.0-2.0); EOSINOPHILS # (AUTO) 0.1 K/uL (0-0.4); EOSINOPHILS % (AUTO) 0.6 % (0.0-4.0); HEMATOCRIT 27.9 % (36-48); HEMOGLOBIN 8.6 g/dL (12.0-16.0); LYMPHOCYTES % (AUTO) 9.4 % (20.5-51.1); MEAN CORPUSCULAR HEMOGLOBIN 25 pg (27-31); MEAN CORPUSCULAR HGB CONC 31 g/dL (33-37); MEAN CORPUSCULAR VOLUME 79.7 fL (80-94); MONOCYTES # (AUTO) 0.9 K/uL (0.8-1.0); MONOCYTES % (AUTO) 8.8 % (1.7-9.3); NEUTROPHILS # (AUTO) 8.3 K/uL (1.8-7.7); PLATELET COUNT (AUTO) 216 K/uL (140-450); RED BLOOD CELL COUNT(AUTO) 3.51 MIL/uL (4.20-5.40); RED CELL DISTRIBUTION WIDTH 20.2 % (11.6-13.7); WHITE BLOOD COUNT (AUTO) 10.2 K/uL (4.8-10.8)
[2020-03-01] MEDS: LANSOPRAZOLE 30 MG CAPDR GT SCH (05:23)
[2020-03-01 05:25] LABS: ANION GAP 10.2 (8-16); CARBON DIOXIDE 37.9 mmol/L (21-32); CHLORIDE 105 mmol/L (98-107); CREATININE 0.8 mg/dL (0.6-1.3); GLUCOSE 160 mg/dL (74-106); POTASSIUM 3.1 mmol/L (3.5-5.1); SODIUM SERUM 150 mmol/L (136-145); UREA NITROGEN, BLOOD 13 mg/dL (7-18)
--- NOTE | 2020-03-01 05:50 | NUR ---
CLEANED, CHANGED, REPOSITIONED PT, TOLERATED WELL. NO DISTRESS NOTED. WILL CONTINUE TO MONITOR
[2020-03-01] MEDS: LEVOTHYROXINE 0.088 MG TAB PO SCH (06:02)
--- NOTE | 2020-03-01 07:10 | NUR ---
ENDORSED PT TO DAY RN FOR CONTINUITY OF CARE. PT IS IN STABLE CONDITION
--- NOTE | 2020-03-01 07:15 | NUR ---
RECEIVED PATIENT FROM NIGHT NURSE. PATIENT IS COMFORTABLE IN BED, NO ACUTE S/S DISTRESS NOTED. RESP EVEN AND UNLABORED ON TRACH TO VENT. VENT SETTINGS: FIO2 28% RR 12 PEEP 5. 100% SAT AT THIS TIME. EYE MOVEMENT NOTED, NO TRACKING AT THIS TIME. PATIENT IS APHASIC. NGT NOTED. G TUBE IN PLACE, CLEAN AND INTACT. FEEDING ON HOLD AT THIS TIME. RH 20G SL. SAFETY MEASURES IN PLACE. WILL CONTINUE TO MONITOR.
--- NOTE | 2020-03-01 07:43 | NUR ---
RECEIVED ON A [employer] R860 VENTILATOR PLUGGED INTO RED OUTLET TOLERATING WELL WITHOUT ADVERSE REACTIONS NOTED TO A PORTEX DCT #7 AIRWAY SECURED WITH A PORTEX TRACH TIE CUFF PRESSURE CHECKED NOTED AMBU BAG AT BEDSIDE RESTING COMFORTABLY WITH NO APPARENT PULMONARY DISTRESS NOTED TRACHEAL SUCTION FOR MODERATE THIN PALE YELLOW SECRETIONS AIRWAY PATENT
[2020-03-01] MEDS: MAGNESIUM HYDROXIDE 2400 MG/30 ML UDC GT SCH (09:25)
[2020-03-01] MEDS: DIGOXIN 0.125 MG/2.5 ML UDC GT SCH (09:25)
[2020-03-01] MEDS: POTASSIUM CHLORIDE 20% 40 MEQ/15 ML UDC GT SCH ×2 (09:25→20:44)
[2020-03-01] MEDS: LACTULOSE 20 GM/30 ML UDC PO SCH ×2 (09:26→20:43)
[2020-03-01] MEDS: LACTOBACILLUS RHAMNOSUS GG 1 EACH CAP GT SCH (09:26)
[2020-03-01] MEDS: SPIRONOLACTONE 50 MG TAB PO SCH ×2 (09:27→21:10)
--- NOTE | 2020-03-01 09:53 | NUR ---
MORNING ROUTINE MEDICATIONS GIVEN VIA NG TUBE. PATIENT TOLERATED WELL. RESIDUAL CHECK < 5ML VIA NGT. NG TUBE PATENT. GTUBE NOTED PATENT CLEAN AND DRY. POTASSIUM 3.1 GIVEN REPLACEMENT. BP 121/81 HR APICAL 86. CONTROLLED AFIB ON TELE MONITORING. LUNGS CLEAR. SKIN WARM TO TOUCH AND INTACT. BOWEL SOUNDS PRESENT. SCD ON. RH 20G INTACT AND PATENT, SL. NO NOTED ACUTE S/S DISTRESS AT THIS TIME. WILL CONTINUE TO MONITOR.
--- NOTE | 2020-03-01 10:13 | NUR ---
NO SOD NOTED EQUAL CHEST RISE DEEP TRACHEAL SUCTION FOR MODERATE THICK PALE YELLOW SECRETIONS AIRWAY PATENT Addendum: 03/01/20 at 1201 by Chris Webb RT SOD = SOB
--- NOTE | 2020-03-01 11:05 | NUR ---
PATIENT TURNED AND REPOSITIONED. PATIENT TOLERATED WELL. PERSONAL CARE RENDERED. SMALL AMOUNT SUCTION FROM TRACH. ORAL CARE GIVEN. NO NOTED DISTRESS AT THIS TIME. WILL CONTINUE TO MONITOR.
--- NOTE | 2020-03-01 11:28 | NUR ---
NO EVIDENCE OF RESPIRATORY DISTRESS NOTED GOOD CHEST RISE DEEP TRACHEAL SUCTION FOR MODERATE SEMI THICK PALE YELLOW SECRETIONS AIRWAY PATENT EXPIRATORY Vt GREATER THAN 8 ml/kg (400 ml) POST HHN THERAPY DECREASED Pinsp TO 26 cmH2O BUDDHIST MONK TO MONITOR OLY/RN NOTIFIED
--- NOTE | 2020-03-01 13:31 | NUR ---
ROUTINE MEDICATIONS GIVEN. PATIENT REPOSITIONED. PATIENT TOLERATED WELL. NO NOTED ACUTE S/S DISTRESS AT THIS TIME. GTUBE FEEDING STARTED WITH VITAL AF 1.2 30ML/HR WITH H2O FLUSH 100ML Q4H. RESIDUAL CHECK PRIOR <5ML. WILL CONTINUE TO MONITOR Addendum: 03/01/20 at 1333 by Zaire Reno RN NGT OFF LOW INTERMITTENT SUCTION.
--- NOTE | 2020-03-01 13:43 | NUR ---
NO PULMONARY DISTRESS NOTED GOOD CHEST RISE AND AERATION THROUGHOUT BILATERAL LUNG ARDON VENTILATOR SETTINGS CHANGED: MODE AC VT 400 RATE 12 PEEP 5 FIO2 28% PATIENT UNABLE TO TOLERATED ADMITTING Vt OF 450 ml DUE TO PEAK PRESSURE EXCEEDING 40 cmH2O DECREASED Vt TO 400 ml WHICH EQUATES TO 8 ml/kg OF IBW (IDEAL BODY WEIGHT) OLY/RN NOTIFIED
--- NOTE | 2020-03-01 13:43 | NUR ---
03/01/20 RD FOLLOW UP COMPLETED PLEASE REFER TO NUTRITION ASSESSMENT UNDER CARE ACTIVITY FOR ESTIMATED NUTRITIONAL NEEDS. 1. CONSIDER INCREASING GOAL RATE OF VITAL AF 1.2 @ 60 ML/HR X 24 HR -THIS WILL PROVIDE 1728 KCAL AND 108 GM OF PROTEIN, MEETING 100% OF KCAL AND PROTEIN NEEDS 2. CONTINUE FREE WATER FLUSH OF [address] TO FOLLOW-UP 2-3 DAYS, HIGH RISK VALERIE ROCA RD
--- NOTE | 2020-03-01 14:53 | NUR ---
RECOMMENDED TO DR. PRATT INCREASING GOAL RATE TO 60 ML/HR OF VITAL 1.2. DR. PRATT APPROVED RECOMMENDATIONS.
--- NOTE | 2020-03-01 15:25 | NUR ---
PATIENT TURNED AND REPOSITIONED. PATIENT TOLERATING WELL. NO ACUTE S/S DISTRESS AT THIS TIME. WILL CONTINUE TO MONITOR.
[2020-03-01] MEDS ORDERED: FUROSEMIDE 40 MG/4 ML VIAL IVP SCH (16:00)
--- NOTE | 2020-03-01 16:04 | NUR ---
TOLERATING VENTILATOR SUPPORT WELL NOTED WITHOUT ADVERSE REACTIONS GOOD CHEST RISE DEEP TRACHEAL SUCTION FOR MODERATE THICK YELLOW SECRETIONS AIRWAY PATENT
[2020-03-01] MEDS: RIVAROXABAN 15 MG TAB GT SCH (16:32)
--- NOTE | 2020-03-01 16:42 | NUR ---
ORDER FROM DR CASTAÑEDA TO DISCONTINUE NGT CARRIED OUT. ORAL CARE PROVIDED. PATIENT TOLERATED WELL. GTUBE FEEDING CONTINUES WITH VITAL AF 1.2 30ML/HF. PATIENT TOLERATING WELL. WILL CONTINUE TO MONITOR.
--- NOTE | 2020-03-01 17:48 | NUR ---
NO DISTRESS NOTED GOOD CHEST RISE DEEP TRACHEAL SUCTION FOR SMALL SEMI THICK YELLOW SECRETIONS AIRWAY PATENT
--- NOTE | 2020-03-01 18:54 | NUR ---
PATIENT TURNED AND REPOSITIONED. PERSONAL CARE RENDERED WITH PHILOSOPHY FACULTY. PATIENT TOLERATED WELL. NO NOTED ACUTE S/S DISTRESS AT THIS TIME. WILL CONTINUE TO MONITOR.
--- NOTE | 2020-03-01 19:25 | NUR ---
ENDORSED PATIENT TO NIGHT NURSE. PATIENT IN STABLE CONDITION.
--- NOTE | 2020-03-01 19:26 | NUR ---
RECEIVED REPORT FROM OLY SALOMON RN. PT APHASIC, TRACH TO VENT. RESPIRATIONS EVEN AND UNLABORED. NO S/S RESPIRATORY DISTRESS. FLACC 0. IV SITE R HAND 20G, PATENT AND INTACT, S.L. SKIN WARM DRY INTACT. G TUBE PATENT AND INTACT, INFUSING VITAL AF 1.2 AT 60 ML/HR. SAFETY MEASURES IN PLACE. CALL LIGHT WITHIN REACH. WILL CONTINUE TO MONITOR
[2020-03-01] MEDS: ATORVASTATIN 20 MG TAB GT SCH (20:44)
[2020-03-01] MEDS: SENNA 8.6 MG TAB PO SCH (20:46)
--- NOTE | 2020-03-01 21:00 | NUR ---
CLEANED, CHANGED, REPOSITIONED PT, TOLERATED WELL. HOB ELEVATED. SAFETY MEASURES IN PLACE. WILL CONTINUE TO MONITOR
--- NOTE | 2020-03-01 21:17 | NUR ---
RESIDUAL CHECK 10ML. ADMINISTERED SCHEDULED MEDS. PT TOLERATED WELL. NO DISTRESS NOTED. WILL CONTINUE TO MONITOR.
--- NOTE | 2020-03-01 23:35 | NUR ---
PT ASLEEP IN BED. RESPIRATIONS EVEN AND UNLABORED. NO DISTRESS NOTED. WILL CONTINUE TO MONITOR
[2020-03-02] VITALS (12 sets, daily range): BP systolic 98–131; BP diastolic 38–63
--- NOTE | 2020-03-02 02:37 | NUR ---
PT SLEEPING IN BED COMFORTABLY. RESPIRATIONS EVEN AND UNLABORED. HOB ELEVATED. NO DISTRESS NOTED. WILL CONTINUE TO MONITOR
[2020-03-02] MEDS: ALBUTEROL SULFATE/IPRATROPIU 3 ML SOL IH SCH ×6 (03:31→23:13)
[2020-03-02] MEDS: METOCLOPRAMIDE 10 MG/2 ML INJ VIAL IVP SCH ×3 (04:27→21:04)
[2020-03-02] MEDS: DILTIAZEM 30 MG TAB GT SCH ×3 (04:36→20:45)
--- NOTE | 2020-03-02 04:41 | NUR ---
HELD CARDIZEM DUE TO LOW BP 99/48, HR 65, O2 SAT 97%. NO DISTRESS NOTED. WILL CONTINUE TO MONITOR
[2020-03-02 05:09] LABS: BASOPHILS % (AUTO) 0.4 % (0.0-2.0); EOSINOPHILS # (AUTO) 0.1 K/uL (0-0.4); EOSINOPHILS % (AUTO) 0.9 % (0.0-4.0); HEMATOCRIT 25.6 % (36-48); HEMOGLOBIN 7.9 g/dL (12.0-16.0); LYMPHOCYTES % (AUTO) 11.9 % (20.5-51.1); MEAN CORPUSCULAR HEMOGLOBIN 25 pg (27-31); MEAN CORPUSCULAR HGB CONC 31 g/dL (33-37); MEAN CORPUSCULAR VOLUME 80.2 fL (80-94); MONOCYTES # (AUTO) 0.8 K/uL (0.8-1.0); MONOCYTES % (AUTO) 9.8 % (1.7-9.3); NEUTROPHILS # (AUTO) 6.5 K/uL (1.8-7.7); PLATELET COUNT (AUTO) 204 K/uL (140-450); WHITE BLOOD COUNT (AUTO) 8.5 K/uL (4.8-10.8)
--- NOTE | 2020-03-02 05:20 | NUR ---
CLEANED, CHANGED, REPOSITIONED PT, TOLERATED WELL. RESPIRATIONS EVEN AND UNLABORED. O2 SAT 96%. NO DISTRESS NOTED. SAFETY MEASURES IN PLACE. WILL CONTINUE TO MONITOR
[2020-03-02] MEDS: LANSOPRAZOLE 30 MG CAPDR GT SCH (05:29)
[2020-03-02 05:40] LABS: ANION GAP 9.4 (8-16); CARBON DIOXIDE 36.6 mmol/L (21-32); CHLORIDE 107 mmol/L (98-107); CREATININE 1.3 mg/dL (0.6-1.3); GLUCOSE 230 mg/dL (74-106); SODIUM SERUM 149 mmol/L (136-145); UREA NITROGEN, BLOOD 18 mg/dL (7-18)
[2020-03-02] MEDS: LEVOTHYROXINE 0.088 MG TAB PO SCH (06:16)
--- NOTE | 2020-03-02 07:34 | NUR ---
RECEIVED ON A [employer] R860 VENTILATOR PLUGGED INTO RED OUTLET TOLERATING WELL WITHOUT COMPLICATIONS NOTED TO A PORTEX DCT#7 AIRWAY SECURED WITH A CUCA TRACH TIE AMBU BAG NOTED AT BEDSIDE RESTING WELL NO DISTRESS NOTED GOOD CHEST RISE DEEP TRACHEAL SUCTION FOR SMALL THIN YELLOW SECRETIONS AIRWAY PATENT
--- NOTE | 2020-03-02 07:36 | NUR ---
ENDORSED PT TO DAY RN FOR CONTINUITY OF CARE. PT IS IN STABLE CONDITION
--- NOTE | 2020-03-02 07:37 | NUR ---
RECEIVED REPORT FROM NIGHT RN. PATIENT AWAKE IN BED. AOX1, APHASIC, ABLE TO TRACK WITH EYES. FLACC 0, RESPIRATIONS EVEN AND UNLABORED. TRACH TO VENT A/C P/C, FIO2:28%, RATE:12, PEEP:6. O2 SAT AT 96%. IV ON R MARTNII 20G SL. GT INTACT AND PATENT CONNECTED TO TUBE FEEDING VITAL 1.2 60ML WITH FWF 100ML/Q4H. SKIN IS INTACT. STANDARD ISOLATION. SAFETY MEASURES IN PLACE, CALL LIGHT WITHIN REACH. WILL CONTINUE TO MONITOR.
[2020-03-02] MEDS: MAGNESIUM HYDROXIDE 2400 MG/30 ML UDC GT SCH (08:53)
[2020-03-02] MEDS: LACTOBACILLUS RHAMNOSUS GG 1 EACH CAP GT SCH (08:53)
[2020-03-02] MEDS: POTASSIUM CHLORIDE 20% 40 MEQ/15 ML UDC GT SCH ×2 (08:53→20:25)
[2020-03-02] MEDS: SPIRONOLACTONE 50 MG TAB PO SCH ×2 (08:54→20:25)
[2020-03-02] MEDS: LACTULOSE 20 GM/30 ML UDC PO SCH ×2 (08:54→20:24)
[2020-03-02] MEDS: FUROSEMIDE 40 MG/4 ML VIAL IVP SCH (08:54)
--- NOTE | 2020-03-02 09:05 | NUR ---
GT INTACT AND PATENT WITH 150CC RESIDUALS. DUE MEDS GIVEN
[2020-03-02] MEDS: DIGOXIN 0.125 MG/2.5 ML UDC GT SCH (09:15)
--- NOTE | 2020-03-02 09:37 | NUR ---
RESTING COMFORTABLY NO EVIDENCE OF PULMONARY DISTRESS NOTED EQUAL CHEST RISE DEEP TRACHEAL SUCTION FOR SMALL THIN YELLOW SECRETIONS AIRWAY PATENT
--- NOTE | 2020-03-02 10:15 | NUR ---
PERICARE, ORAL CARE DONE. REPOSITIONED PT. WITH BMX1 LARGE
--- NOTE | 2020-03-02 11:24 | NUR ---
NO APPARENT SOB NOTED GOOD CHEST RISE DEEP TRACHEAL SUCTION FOR MODERATE THIN YELLOW SECRETIONS AIRWAY PATENT
--- NOTE | 2020-03-02 13:00 | NUR ---
PT ASLEEP IN BED. FLACC 0, NO APPARENT DISTRESS
--- NOTE | 2020-03-02 13:47 | NUR ---
NO DETECTION OF SOB NOTED GOOD CHEST RISE AND AERATION THROUGHOUT BILATERAL LUNG ARDON AIRWAY PATENT
--- NOTE | 2020-03-02 16:30 | NUR ---
PERICAARE DONE WITH BM X1 LARGE
[2020-03-02] MEDS: RIVAROXABAN 15 MG TAB GT SCH (17:00)
--- NOTE | 2020-03-02 19:00 | NUR ---
PT ASLEEP IN BED. NO S/S OF PAIN, RESPIRATIONS ARE EVEN AND UNLABORED
--- NOTE | 2020-03-02 19:24 | NUR ---
RECEIVED REPORT FROM AM SHIFT. PT SEEN AND ASSESSED. PT IS TRACH TO VENT WITH PORTEX SIZE 7 AND SECURED WITH TRACH TIE. PT IS ON VENT SETTINGS AC/VC RR 12bpm, Vt 400cc, PEEP 5 cmH20, AND FiO2 28% WITH SPO2 OF 100%. VENT IS PLUGGED IN RED OUTLET AND VENT ALARMS SET AND AUDIBLE TO ENVIRONMENT. AUSCULTATION REVEALS BILATERAL COARSE BREATH SOUNDS. SUCTIONED MODERATE AMOUNT OF CLEAR/WHITE SECRETIONS FROM TRACH TUBE. AIRWAY IS PATENT. PT IS IN NO APPARENT RESPIRATORY DISTRESS AT THIS TIME. HHN TX GIVEN ORDERED AND PT TOLERATED TX WELL WITH NO ADVERSE REACTION. WILL CONTINUE TO MONITOR PT.
--- NOTE | 2020-03-02 19:40 | NUR ---
RECEIVED REPORT FROM IMELDA RN, PT TRACH TO VENT AC/VC FIO2 28% VT 400 RR 12 PEEP 5, S1 AND S2 HEART SOUNDS HEARD, GTUBE IN PLACE, BOWEL SOUNDS ACTIVE, 60 ML RESIDUALS, PT ON TUBE FEEDING VITAL AF 60 ML/HR FWF 100 Q4H, VSS, SAFETY PROTOCOLS IN PLACE WILL CONTINUE TO MONITOR PT
--- NOTE | 2020-03-02 20:03 | NUR ---
CHECKED PATIENT'S RESIDUAL AT 210 ML. PUT FEEDING ON HOLD PER MD ORDER. PATIENT'S ABDOMEN IS SLIGHTLY DISTENDED. CALL LIGHT WITHIN REACH. SAFETY PRECAUTIONS IN PLACE.
[2020-03-02] MEDS: ATORVASTATIN 20 MG TAB GT SCH (20:24)
[2020-03-02] MEDS: SENNA 8.6 MG TAB PO SCH (20:24)
--- NOTE | 2020-03-02 21:00 | NUR ---
DUE MEDS GIVEN. INCONTINENT CARE RENDERED WITH PAINTER AND DECORATOR AT BEDSIDE. CALL LIGHT WITHIN REACH. SAFETY PRECAUTIONS IN PLACE.
--- NOTE | 2020-03-02 21:15 | NUR ---
CHECKED PATIENT'S RESIDUAL AT 180 ML. CONTINUE TO HOLD PATIENT'S FEEDING PER MD ORDER. PATIENT'S ABDOMEN CONTINUES TO BE SLIGHTLY DISTENDED. CALL LIGHT WITHIN REACH. SAFETY PRECAUTIONS IN PLACE.
--- NOTE | 2020-03-02 22:30 | NUR ---
PATIENT'S RESIDUAL CONTINUES TO BE HIGH AT 150 ML. CONTINUE TO HOLD FEEDING.
--- NOTE | 2020-03-02 23:20 | NUR ---
PATIENT RESTING IN BED COMFORTABLY. FLACC 0. NO S/S ACUTE DISTRESS. CALL LIGHT WITHIN REACH. SAFETY PRECAUTIONS IN PLACE.
[2020-03-03] VITALS: BP 128/49
--- NOTE | 2020-03-03 01:40 | NUR ---
PATIENT'S RESIDUAL STILL ELEVATED. FEEDING CONTINUES TO BE HELD.
--- NOTE | 2020-03-03 02:37 | NUR ---
Patient's Plan of Care was discussed and reviewed with HEALTH SCIENCES PROGRAM COORDINATOR: TAMIE FERREIRA
[2020-03-03] MEDS: ALBUTEROL SULFATE/IPRATROPIU 3 ML SOL IH SCH ×3 (03:02→11:07)
[2020-03-03 03:59] VITALS: BP 125/55
[2020-03-03] MEDS: METOCLOPRAMIDE 10 MG/2 ML INJ VIAL IVP SCH ×2 (04:31→13:22)
--- NOTE | 2020-03-03 05:36 | NUR ---
TRACH CARE COMPLETED. AIRWAY IS PATENT. PT IS IN NO RESPIRATORY DISTRESS AT THIS TIME. PT STILL REMAINS ON VENT SUPPORT. WILL CONTINUE TO MONITOR PT.
[2020-03-03] MEDS: DILTIAZEM 30 MG TAB GT SCH ×2 (05:46→13:21)
[2020-03-03] MEDS: LANSOPRAZOLE 30 MG CAPDR GT SCH (05:47)
[2020-03-03] MEDS: LEVOTHYROXINE 0.088 MG TAB PO SCH (05:47)
[2020-03-03 05:59] LABS: BASOPHILS % (AUTO) 0.4 % (0.0-2.0); EOSINOPHILS % (AUTO) 0.6 % (0.0-4.0); HEMATOCRIT 26.6 % (36-48); HEMOGLOBIN 7.8 g/dL (12.0-16.0); LYMPHOCYTES # (AUTO) 1.5 K/uL (2.5-16.5); MEAN CORPUSCULAR HEMOGLOBIN 24 pg (27-31); MEAN CORPUSCULAR HGB CONC 30 g/dL (33-37); MEAN CORPUSCULAR VOLUME 80.1 fL (80-94); MONOCYTES # (AUTO) 0.8 K/uL (0.8-1.0); MONOCYTES % (AUTO) 9.6 % (1.7-9.3); NEUTROPHILS # (AUTO) 5.8 K/uL (1.8-7.7); NEUTROPHILS % (AUTO) 71.4 % (42.2-75.2); PLATELET COUNT (AUTO) 202 K/uL (140-450); RED BLOOD CELL COUNT(AUTO) 3.32 MIL/uL (4.20-5.40); RED CELL DISTRIBUTION WIDTH 20.1 % (11.6-13.7); WHITE BLOOD COUNT (AUTO) 8.1 K/uL (4.8-10.8)
[2020-03-03 06:07] LABS: ANION GAP 11.4 (8-16); CARBON DIOXIDE 33.4 mmol/L (21-32); CHLORIDE 107 mmol/L (98-107); CREATININE 1.5 mg/dL (0.6-1.3); GLUCOSE 242 mg/dL (74-106); POTASSIUM 4.8 mmol/L (3.5-5.1); SODIUM SERUM 147 mmol/L (136-145); UREA NITROGEN, BLOOD 21 mg/dL (7-18)
--- NOTE | 2020-03-03 07:07 | NUR ---
ENDORSED PATIENT TO AM SHIFT NURSE FOR CONTINUITY OF CARE.
--- NOTE | 2020-03-03 07:10 | NUR ---
RECEIVED REPORT FROM NIGHT NURSE PATIENT IS SLEEPING, TRACH TO VENT, ON GTUBE VITAL AT 60 WATER FLUSH 100Q4H,TUBE FEEDING ON HOLD, INCONTINENT, IV SITES INTACT ON RIGHT HAND, SKIN INTACT, SAFETY MEASURES IN PLACE, CALL LIGHT WITHIN REACH. WILL CONTINUE TO MONITOR.
[2020-03-03 08:00] VITALS: BP 123/49
[2020-03-03] MEDS: MAGNESIUM HYDROXIDE 2400 MG/30 ML UDC GT SCH (09:37)
[2020-03-03] MEDS: LACTULOSE 20 GM/30 ML UDC PO SCH (09:38)
[2020-03-03] MEDS: POTASSIUM CHLORIDE 20% 40 MEQ/15 ML UDC GT SCH (09:38)
[2020-03-03] MEDS: SPIRONOLACTONE 50 MG TAB PO SCH (09:39)
[2020-03-03] MEDS: DIGOXIN 0.125 MG/2.5 ML UDC GT SCH (09:39)
[2020-03-03] MEDS: LACTOBACILLUS RHAMNOSUS GG 1 EACH CAP GT SCH (09:40)
[2020-03-03] MEDS: FUROSEMIDE 40 MG/4 ML VIAL IVP SCH (09:40)
--- NOTE | 2020-03-03 09:45 | NUR ---
MEDICATION DUE GIVEN AND VITAL SIGNS CHECK PRIOR TO MEDICATION BP 123/74 W[place] 72. WITH A 10ML RESIDUAL VOLUME, RESUME FEEDING AT 60ML/HR AND WATER FLUSH AT 100 ML Q4H. TOLERATED WELL. SUCTION NEEDED. NO DISTRESS NOTED. SAFETY MEASURES IN PLACE AND CALL LIGHT WITHIN REACH. WILL CONTINUE TO MONITOR.
--- NOTE | 2020-03-03 10:30 | NUR ---
PATIENT IS BEING DISCHARGE BACK [place] [facility]
[2020-03-03] MEDS ORDERED: FER300L GT (11:00)
[2020-03-03] MEDS ORDERED: SYN.075 GT (11:00)
[2020-03-03] MEDS ORDERED: DIGO-119 PO (11:02)
[2020-03-03] MEDS ORDERED: SPIR50TA PO (11:02)
[2020-03-03 12:00] VITALS: BP 127/49
--- NOTE | 2020-03-03 13:30 | NUR ---
GAVE REPORT TO NURSE [facility]. PATIENT UNDER THE CARE OF DR JIMENEZ ROOM 7B. PT IS STABLE.
--- NOTE | 2020-03-03 13:50 | NUR ---
DISCHARGE INSTRUCTIONS GIVEN TO [facility] AT BEDSIDE, AND GAVE REPORT TO [facility] NURSE MARV, INSTRUCTED TO CONTINUE MEDICATIONS, POC, REMOVED ID BAND AND TELEMONITOR AND RETURNED TO FIELD MARKETING REPRESENTATIVE. PATIENT CHANGED AND FEEDING HELD. VENT SETTING KEPT AND ENDORSED TO [facility]. NO SIGNS OF DISTRESS, PT IS STABLE AND DISCHARGE BACK TO [facility].
== END 2020-03-03 13:50 | DRG 207 ==
LOC: MED 21:20 → MTU 23:54
PROVIDERS: ADMIT Emergency Medicine; ATTEND Emergency Medicine
PROC: 5A1955Z Respiratory Ventilation, Greater than 96 Consecutive Hours (ICD-10-PCS; principal; 2020-02-21)
PROC: 0W9G3ZZ Drainage of Peritoneal Cavity, Percutaneous Approach (ICD-10-PCS; 2020-02-29)
PROC: 0D20XUZ Change Feeding Device in Upper Intestinal Tract, External Approach (ICD-10-PCS; 2020-03-01)
DX: J69.0 Pneumonitis due to inhalation of food and vomit (principal); E43 Unspecified severe protein-calorie malnutrition; J96.20 Acute and chronic respiratory failure, unspecified whether with hypoxia or hypercapnia; N17.9 Acute kidney failure, unspecified; R18.8 Other ascites; I48.20 Chronic atrial fibrillation, unspecified; E87.0 Hyperosmolality and hypernatremia; K94.23 Gastrostomy malfunction; Z68.32 Body mass index [BMI] 32.0-32.9, adult; E03.9 Hypothyroidism, unspecified; E83.41 Hypermagnesemia; F03.90 Unspecified dementia, unspecified severity, without behavioral disturbance, psychotic disturbance, mood disturbance, and anxiety; I49.5 Sick sinus syndrome; Z20.828 Contact with and (suspected) exposure to other viral communicable diseases; Z66 Do not resuscitate; K21.9 Gastro-esophageal reflux disease without esophagitis; R31.9 Hematuria, unspecified; I12.9 Hypertensive chronic kidney disease with stage 1 through stage 4 chronic kidney disease, or unspecified chronic kidney disease; N18.9 Chronic kidney disease, unspecified; E87.6 Hypokalemia; N20.0 Calculus of kidney; R13.10 Dysphagia, unspecified; D63.8 Anemia in other chronic diseases classified elsewhere; E78.5 Hyperlipidemia, unspecified; Z93.0 Tracheostomy status; Z88.0 Allergy status to penicillin; Z88.2 Allergy status to sulfonamides; Z88.8 Allergy status to other drugs, medicaments and biological substances; Z79.899 Other long term (current) drug therapy; Z83.3 Family history of diabetes mellitus; Y83.3 Surgical operation with formation of external stoma as the cause of abnormal reaction of the patient, or of later complication, without mention of misadventure at the time of the procedure
CPT/HCPCS: 36415; 36600; 49083; 71045; 74018; 76705; 76770; 80048; 80053; 80162; 81001; 82803; 83036; 83605; 83690; 83735; 83880; 84100; 84436; 84439; 84443; 84479; 84484; 85025; 85610; 85730; 87040; 87081; 87086; 93005; 94002; 94003; 94640; 96365; 96375; 99285; C1758; J1160; J1644; J1940; J1956; J2001; J2270; J2765; J3480; J3490; J7030; Q0092

== ENCOUNTER 2020-03-29 21:20 | Inpatient (IN) | payer OTHER, SELFPAY ==
[~2020-03-29] VITALS: Ht 154.9 cm; Wt 74.8 kg
[~2020-03-29 21:20] MED LIST changes: -ALBU3SOL83 IH; -AMLO10TA4 PO; -CARB1TAB17 PO; +DIGO-119 PO; -DILT60TA94 GT; -FLUC100T1 GT; -HEPA500056 SUBQ; -LACT10CA GT; -LANS30EC68 GT; -LAS20I IVP; -LISI-424 PO; -LOV30I SC; -MEMA10TA GT; -METO50TA99 GT; -METO5SOL24 IVP; -MOM GT; -MYCPWD TP; -Miscellaneous MC; -NITR0.4T1 SL; -NITR12SP3 TD; -ONDA2SOL45 GT; -ONDA2SOL45 IVP; -PANT40PD7 IVP; -PIPE1SOL IV; -POLY15SO74 OP; -POLY17PD46 GT; +SPIR50TA PO; -[UNRECOGNIZED DRUG - CODE] TP
[2020-03-29 21:23] VITALS: BP 115/33
--- NOTE | 2020-03-29 21:23 | NUR ---
PT MELCHOR ALS. TAKEN TO BED 9
--- NOTE | 2020-03-29 21:25 | NUR ---
89 Y/O FEMALE PT BIBA FROM [facility] C/O ELEVATED K+ , PER FACILITY 7.1 K+, PT IS A POOR HISTORIAN. PT IS NOT IN ANY ACUTE DISTRESS AT THIS TIME. LUNG SOUNDS CLEAR THROUGHOUT. NO VISIBLE BLEEDING. NO N/V NOTED. PT RESPONDS TO PAIN-GCS 7. PT IS AFEBRILE. PT IS LAYING DOWN WITH HOB IN SEMI-FOWLERS POSITION AND POSITIONED FOR COMFORT. PT IS CONNECTED TO THE CARDROOM WORKER. SIDE RAILS X2 FOR PT PROTECTION. BED IS LOCKED AND IN LOWEST POSITION. WILL CONTINUE TO MONITOR. PMH: TRACH TO VENT , RESP FAILURE, ANOXIC BRAIN DAMAGE, PERSISTANCE VEGETATIVE STATE, AFIB, DM, G-TUBE, HTN, DEMENTIA AX: PCN, SULFA, AMINACRINE, ALLANTOIN
--- NOTE | 2020-03-29 21:52 | NUR ---
Dr. Wagner examining patient.
--- NOTE | 2020-03-29 22:03 | NUR ---
LAB AT BEDSIDE.
[2020-03-29] MEDS ORDERED: DIGO0.122 GT (22:23)
[2020-03-29] MEDS ORDERED: LANS15EC28 GT (22:23)
[2020-03-29] MEDS ORDERED: LACT1CAP59 GT (22:23)
[2020-03-29] MEDS ORDERED: LACT10SO1 GT (22:23)
[2020-03-29] MEDS ORDERED: DEXT15DR6 OP (22:23)
[2020-03-29] MEDS ORDERED: SPIR50TA GT (22:23)
[2020-03-29] MEDS ORDERED: CAR30 GT (22:23)
[2020-03-29 22:27] LABS: WHITE BLOOD COUNT (AUTO) 12.6 K/uL (4.8-10.8)
--- NOTE | 2020-03-29 22:33 | NUR ---
PER DR. PRASAD VERBAL ORDER - ADMINISTER STRAIGHT CATH TO OBTAIN URINE SAMPLE
[2020-03-29 22:41] LABS: HEMATOCRIT 23.6 % (36-48); MEAN CORPUSCULAR HEMOGLOBIN 24 pg (27-31); MEAN CORPUSCULAR HGB CONC 30 g/dL (33-37); MEAN CORPUSCULAR VOLUME 80.6 fL (80-94); PLATELET COUNT (AUTO) 150 K/uL (140-450); RED BLOOD CELL COUNT(AUTO) 2.92 MIL/uL (4.20-5.40); RED CELL DISTRIBUTION WIDTH 21.1 % (11.6-13.7)
[2020-03-29 22:43] LABS: ALBUMIN 2.6 g/dL (3.4-5.0); ANION GAP 17.4 (8-16); ASPARTATE AMINOTRANSFERASE 16 U/L (15-37); CARBON DIOXIDE 19.1 mmol/L (21-32); CHLORIDE 105 mmol/L (98-107); CREATININE 1.3 mg/dL (0.6-1.3); GLUCOSE 156 mg/dL (74-106); POTASSIUM 5.5 mmol/L (3.5-5.1); SODIUM SERUM 136 mmol/L (136-145); TOTAL BILIRUBIN 0.4 mg/dL (0.0-1.0); UREA NITROGEN, BLOOD 60 mg/dL (7-18)
--- NOTE | 2020-03-29 23:10 | NUR ---
CRITICAL LAB VALUE - HGB 7 . ERMD MADE AWARE.
--- NOTE | 2020-03-29 23:13 | NUR ---
RT AT BEDSIDE.
[2020-03-29] MEDS ORDERED: SODIUM ZIRCONIUM CYCLOSILICATE 10 GM POWD.PACK GT ONE (23:40)
--- NOTE | 2020-03-29 23:46 | NUR ---
URINE SAMPLE COLLECTED VIA STRAIGHT CATH AND HANDED TO LIBBY CISNEROS TECH.
--- NOTE | 2020-03-29 23:49 | NUR ---
PER [facility] DOCUMENTATION PT RESPONSIBLE LIBERTARIAN IS ERIN METCALF CONTACT # [phone]
--- NOTE | 2020-03-29 23:50 | NUR ---
covid swab collected and walked over to lab.
[2020-03-29 23:53] LABS: APPEARANCE,URINE SL CLOUDY (CLEAR); BILIRUBIN,URINE NEGATIVE (NEGATIVE); BLOOD, URINE NEGATIVE (NEGATIVE); COLOR,URINE YELLOW (YELLOW); LEUKOCYTE ESTERASE ,URINE NEGATIVE (NEGATIVE); NITRITE, URINE NEGATIVE (NEGATIVE); PH,URINE 5.5 (5.0-9.0); UGLUCOSE NEGATIVE (NEGATIVE)
[2020-03-30] VITALS (9 sets, daily range): BP systolic 86–149; BP diastolic 32–62
--- NOTE | 2020-03-30 00:03 | NUR ---
Female Expedition Supervisor accompanied female patient for Rectal Exam: Guiac Test performed by ERMAshlyn Wagner.
[2020-03-30 00:34] LABS: LYMPHOCYTES % (MANUAL) 4 % (20-46); MONOCYTES % (MANUAL) 6 % (5-12)
[2020-03-30] MEDS ORDERED: NACL 0.9% 1,000 ML IV SCH (00:40)
--- NOTE | 2020-03-30 00:40 | NUR ---
CLEANED AND PROVIDED NEW DRESSINGS AND WOUND CARE TO THE G-TUBE SITE
[2020-03-30 00:42] LABS: RBC,URINE 0-5 /HPF (0-5); URINE AMORPHOUS URATE 1+ /HPF (None Seen); WBC,URINE 0-5 /HPF (0-5)
--- NOTE | 2020-03-30 00:45 | NUR ---
CONTACTED DR. JIMENEZ REGARDING BROWN THIN LIQUID COVERING THE DRESSING SURROUNDING PT'S GTUBE AT THIS TIME. PER DR. JIMENEZ HOLD TUBE FEEDING AT THIS TIME AND HE WILL LOOK AT THE G-TUBE IN THE MORNING.
--- NOTE | 2020-03-30 01:30 | NUR ---
PT IS LAYING DOWN WITH HOB IN SEMI FOWLERS POSITION, POSITIONED FOR COMFORT. PT HAS BOTH SIDE RAILS RAISE FOR HER PROTECTION. PT IS CONNECTED TO THE RISK OFFICER, SAO2 AT 100%. VSS. PT IS NOT IN ANY ACUTE DISTRESS AT THIS TIME. WILL CONTINUE TO MONITOR.
--- NOTE | 2020-03-30 01:31 | NUR ---
Spoke with the -Efrain Bruno over the phone for verbal consent for the pt Milo Bruno to receive blood products at this time. Blood transfusion consent heard by 2 RNs.
--- NOTE | 2020-03-30 02:00 | NUR ---
OBSERVED BLEEDING NOTED FROM PATIENT'S MOUTH AT THIS TIME. ADMITTING DR. JIMENEZ MADE AWARE.
--- NOTE | 2020-03-30 02:07 | NUR ---
Consent signed per verbal conset from Efrain Bruno agreeing to administration of blood. Blood has been type and crossmatched. Blood sent from blood bank. Information on unit of blood checked against patient wristband at bedside by two nurses. All information matches. Patient or responsible constitution party informed of potential complications associated with blood transfusion. Informed of possible transfusion reaction symptoms. Aware of need to notify nurse at once of itching, shortness of breath, flushing, feeling of impending doom, or other symptoms not previously present. Vital signs taken within 5 minutes prior to initiation of transfusion. RN will remain with patient for first 15 minutes of transfusion at which time vital signs will be re-assessed.
--- NOTE | 2020-03-30 03:43 | NUR ---
COVERING PATIENT WHILE PRIMARY NURSE IS AT LUNCH ---- PT IN LAYING IN BED, LOCKED AND IN LOWEST POSITION ,HOB ELEVATED, SIDE RAIL X 2 FOR PT SAFETY. SAO2 100% , OBSERVED SMALL AMOUNT OF BLOOD IN PT MOUTH AT THIS TIME. NO ACUTE DISTRESS NOTED. VSS. R FOREARM IV IS PATENT , NO REDNESS , SWELLING OR INFILTRATION NOTED AT THIS TIME.
--- NOTE | 2020-03-30 03:49 | NUR ---
ALEX, RT AT BEDSIDE AT THIS TIME.
--- NOTE | 2020-03-30 04:40 | NUR ---
Blood transfusion completed, VSS, pt is not in any acute distress at this time.
--- NOTE | 2020-03-30 05:00 | NUR ---
DOCUMENTED WOUND ASSESSMENT AND OBTAINED A PHOTO OF THE SACRAL AREA.
--- NOTE | 2020-03-30 05:03 | NUR ---
PROVIDED PERINEAL CARE, AND NEW GOWN TO THE PT.
--- NOTE | 2020-03-30 06:37 | NUR ---
BLOOD TRANSFUSION FORM WALKED OVER TO LAB
--- NOTE | 2020-03-30 07:16 | NUR ---
REPORT GIVEN TO DILAN TOUSSAINT FOR TRANSFER OF CARE.
[2020-03-30] MEDS ORDERED: POTASSIUM CHLORIDE 10 MEQ TABER PO PRN (08:15)
[2020-03-30] MEDS ORDERED: ONDANSETRON 4 MG/2 ML VIAL IM/IVP PRN (08:15)
[2020-03-30] MEDS ORDERED: guaiFENesin DM 200/20 MG-10 ML 10 ML UDC PO PRN (08:15)
[2020-03-30] MEDS ORDERED: HYDROcodone/APAP 7.5/325 MG 1 TAB PO PRN (08:15)
[2020-03-30] MEDS ORDERED: ZOLPIDEM 5 MG TAB PO PRN (08:15)
[2020-03-30] MEDS: DEXT 5% /NACL 0.9% 1,000 ML IV SCH ×2 (08:15→17:53)
[2020-03-30] MEDS ORDERED: DOCUSATE 100 MG/10 ML UDC PO PRN (08:30)
[2020-03-30] MEDS ORDERED: ACETAMINOPHEN 650 MG/20.3 ML UDC PO PRN (08:30)
[2020-03-30] MEDS ORDERED: SPIRONOLACTONE 50 MG TAB GT SCH (09:00)
--- NOTE | 2020-03-30 09:00 | NUR ---
PT RESTING AT THIS TIME, NO NEW NEEDS.
[2020-03-30 09:13] LABS: PROTHROMBIN TIME 13.5 secs (10.8-13.4)
[2020-03-30 09:17] LABS: BARBITURATE, URINE NEGATIVE ng/ml (NEG <=200); BENZODIAZEPINE, URINE NEGATIVE ng/mL (NEG <=200); CANNABINOID, URINE NEGATIVE ng/mL (NEG <=50); COCAINE, URINE NEGATIVE ng/mL (NEG <=300); OPIATE, URINE NEGATIVE ng/mL (NEG <=2000); PHENCYCLIDINE SCREEN,URINE NEGATIVE ng/mL (NEG <=25)
[2020-03-30 09:23] LABS: CHOL/HDL RATIO 2.5 (1-4.5); FREE T4 (FREE THYROXINE) 1.11 ng/dL (0.76-1.46); MAGNESIUM 2.2 mg/dL (1.8-2.4); THYROID STIMULATING HORMONE 14.59 uIU/mL (0.34-3.74)
[2020-03-30] MEDS: DIGOXIN 0.125 MG TAB GT SCH (11:27)
[2020-03-30] MEDS: LANSOPRAZOLE 30 MG CAPDR PO SCH (11:27)
--- NOTE | 2020-03-30 11:46 | NUR ---
REPOSITIONED PT TO L SIDE WITH PILLOWS. CHANGED PT MASK DUE TO SALIVA BUILD UP. WIPED PT EYES/FACE WITH WASHCLOTH.
--- NOTE | 2020-03-30 11:49 | NUR ---
SOCIAL WORK NOTE: Patient's Orientation Unable To Assess Information Provided By AYA RAMÍREZ - DAUGHTER Comments SW WAS UNABLE TO MEET PATIENT AT BEDSIDE DUE TO MEDICAL CONDITION. SW CONTACTED PATIENT'S DAUGHTER TO COMPLETE ASSESSMENT. PATIENT'S DID NOT ANSWER CALL. SW LEFT VM. Jewelry Estimator, Realtionship and Phone Number ERIN METCALF /POA [phone] YAA RAMÍREZ DAUGHTER [phone] Healthcare Power of Roofing Applicator No Identifying Problems No Social Work Triggers Is A Social Work Consult Needed No Mandate Report Filed No Explanation Of Identifying Problems PATIENT IS AN 89-YEAR-OLD FEMALE ADMITTED FOR HYPERKALEMIA, ANEMIA, AND DEHYDRATION. PATIENT HAS PMHX OF AFIB, COPD, DEMENTIA, GERD, HYPERTENSION, RENAL DISEASE, AND THYROID DISEASE. [facility] - [phone] Pre-Admission Level Of Functioning Status Total Care Level Of Functioning Comment PER DAUGHTER, PATIENT IS BED BOUND. Prior Resources/Services Used In Last 12 Months No Prior Resources Used Prior [facility] Bed Dialysis Comments N/A Patient Had Caregiver No Home Support No Caregiver Issues Financial Issues No Known Financial Issue Referral To The Financial Counselor Needed No Factors/Needs SNF/NH Placement Explanation And Or Other Factors Affecting/Possible DC Needs PATIENT'S FAMILY PREFERS PATIENT RETURN TO [facility]. Pt/Rep Participated In Discharge Plan Yes Patient/Family Agress With Discharge Plan Yes Discharge Plan Comments TENTATIVE DISCHARGE PLAN IS FOR PATIENT TO RETURN HOME. DC Plan Status Initiated
--- NOTE | 2020-03-30 12:11 | NUR ---
DC PLANNING 89 YRS OLD FEMALE PT WAS ADMITTED FROM [facility] WITH A DX OF HYPERKALEMIA, ANEMIA DEHYDRATION. PT MARTINI A HX OF A-FIB, ACUTE RENAL FAILURE HTN, ANOXIC BRAIN INJURY AND DEMENTIA. TRACH TO VENT. CXR SHOWED CARDIOMEGALY WITH MILD CHF AND SMALL BILATERAL PLEURAL EFFUSION. CT ABD/PELVIS PENDING. RAPID COVID TEST NEGATIVE. ADMINISTERED IVF , IV ABX ZOSYN. CONSULTED WITH GI DR CASTAÑEDA ,SPOKE WITH DR CASTAÑEDA ORDER KUB WITH GASTROGRAFIN TO CHECK THE PLACEMENT. DC PLAN TO GO BACK TO [facility] WHEN STABLE CM TO FOLLOW Addendum: 04/04/20 at 1304 by Nina Purdy CM DC TRUST AND ESTATES ATTORNEY: DISCHARGE BACK TO [facility] TODAY ROOM 7B UNDER DR. JIMENEZ. SET UP TRANSPORTATION WITH [facility] [phone] SPOKE TO GIAN. TRANSPORTATION IS SET FOR 3:45 PM Addendum: 04/04/20 at 1313 by Nina Purdy CM DC TRUST AND ESTATES ATTORNEY: CONTACTED PATIENTS YAA HATFIELD [phone] TO DISCUSS DC BACK TO [facility] AND RIGHTS OF MEDICARE. NOTIFIED DILAN GUILLEN OF TRANSPORTATION TIME. Addendum: 04/04/20 at 1314 by Nina Purdy DC [facility] [address] [place] [id number] [address] 7-B DR. JIMENEZ
--- NOTE | 2020-03-30 12:30 | NUR ---
PT RETURN FROM CT
[2020-03-30] MEDS ORDERED: PIPERACILLIN/TAZOBACTAM 3.375 GM VIAL IV ONE (12:39)
[2020-03-30] MEDS ORDERED: PIPERACILLIN/TAZOBACTAM 2.25 GM VIAL IV ONE (12:40)
[2020-03-30] MEDS: DILTIAZEM 30 MG TAB GT SCH ×2 (12:48→21:20)
[2020-03-30] MEDS: PIPERACILLIN/TAZOBACTAM 2.25 GM in DEXTROSE 5% 50 ML IV SCH ×2 (12:57→17:53)
[2020-03-30] MEDS ORDERED: DILTIAZEM 30 MG TAB GT SCH (13:00)
[2020-03-30] MEDS ORDERED: PIPERACILLIN/TAZOBACTAM 3.375 GM in DEXTROSE 5% 50 ML IV SCH (13:00)
--- NOTE | 2020-03-30 14:55 | NUR ---
PROVIDED UPDATE REGARDING PT CONDITION TO PT ERIN.
[2020-03-30] MEDS ORDERED: RIVAROXABAN 15 MG TAB GT SCH (16:30)
--- NOTE | 2020-03-30 17:10 | NUR ---
FLEET ENEMA GIVEN AT BEDSIDE
[2020-03-30] MEDS: BUMETANIDE 1 MG/4 ML VIAL IV SCH ×2 (17:31→17:52)
--- NOTE | 2020-03-30 19:21 | NUR ---
RECIEVED REPORT FROM DILAN TOUSSAINT. TRANSFER OF CARE AT THIS TIME.
--- NOTE | 2020-03-30 19:45 | NUR ---
DC LEFT FOREARM 24 G IV DUE TO NOT FLUSHING
--- NOTE | 2020-03-30 20:00 | NUR ---
PT CHANGED INTO CLEAN GOWN, DIAPER CHNAGED, POSITIONED FOR COMFORT. ALL PT NEEDS MET AT THIS TIME.
--- NOTE | 2020-03-30 20:03 | NUR ---
CALLED AND GAVE REPORT TO DILAN CONCEPCION.
--- NOTE | 2020-03-30 20:30 | NUR ---
Patient will be admitted to care of [facility]. Admited to TELE. Will go to room 110A. Belongings list completed. Report to DILAN CONCEPCION. Addendum: 03/30/20 at 2121 by [email or web address] Patient will be admitted to care of [facility]. Admited to TELE. Will go to room 110B. Belongings list completed. Report to DILAN CONCEPCION.
--- NOTE | 2020-03-30 20:40 | NUR ---
RECEIVED PATIENT FROM ER NURSE VIA [facility] FOR CONTINUITY OF CARE. RESPONSIVE TO VERBAL/TACTILE STIMULI, UNABLE TO MAKE NEEDS KNOWN. TRACH TO VENT. VENT SETTINGS: ACPC FIO2 40% RR 22 PEEP 5. RESPIRATIONS EVEN, UNLABORED. O2SAT 100%. SUCTIONED THIN WHITE SECRETIONS. SKIN ASSESSMENT COMPLETED. SMALL SACRAL WOUND NOTED. FLACC 0. NO S/S ACUTE DISTRESS. IV SITE TO RIGHT FOREARM 24G PATENT/INTACT, INFUSING FLUIDS WELL. ABDOMEN SOFT, LARGE AND ROUND. BOWEL SOUNDS ACTIVE X4 QUADRANTS. GT NOTED. 10 ML OF BROWN RESIDUAL NOTED. INCONTINENT OF B/B. MRSA SCREEN COMPLETED. PATIENT ORIENTED TO STAFF/ROOM/CALL LIGHT. SAFETY PRECAUTIONS IN PLACE. CALL LIGHT WITHIN REACH.
--- NOTE | 2020-03-30 21:10 | NUR ---
SPOKE TO ERIN, PATIENT'S TO INFORM HIM REGARDING PATIENT'S ADMISSION. HE STATED HE WOULD LIKE AN UPDATE TOMORROW AFTER SHE IS SEEN BY THE DOCTOR. PATIENT IS AWAKE AT THIS TIME. HEART RATE RANGES FROM 40 TO 60 BPM. FREQUENT ROUNDS BY ALL STAFF. CALL LIGHT IN REACH.
[2020-03-30] MEDS ORDERED: SODIUM FERRIC GLUCONATE 12.5 MG/ML AMP IV ONE (21:17)
[2020-03-30] MEDS: ATORVASTATIN 20 MG TAB GT SCH (21:20)
[2020-03-30] MEDS: SENNA 8.6 MG TAB PO SCH (21:21)
[2020-03-30] MEDS: SODIUM FERRIC GLUCONATE 125 MG in NACL 0.9% 100 ML IV SCH (21:21)
--- NOTE | 2020-03-30 23:00 | NUR ---
PATIENT TURNED AND REPOSITIONED FOR COMFORT. NO S/S ACUTE DISTRESS. FLACC 0. CALL LIGHT IN REACH.
[2020-03-31] VITALS (9 sets, daily range): BP systolic 110–143; BP diastolic 39–84
[2020-03-31] MEDS ORDERED: PIPERACILLIN/TAZOBACTAM 2.25 GM VIAL IV ONE ×2 (00:30→04:12)
[2020-03-31] MEDS: PIPERACILLIN/TAZOBACTAM 2.25 GM in DEXTROSE 5% 50 ML IV SCH ×5 (00:32→23:11)
--- NOTE | 2020-03-31 01:47 | NUR ---
PATIENT ASLEEP. NO S/S ACUTE DISTRESS. CALL LIGHT WITHIN REACH.
--- NOTE | 2020-03-31 03:11 | NUR ---
PATIENT CONTINUES TO BE BRADYCARDIAC WITH HR 45 BPM. RESPONSIVE TO TACTILE STIMULI. NO S/S ACUTE DISTRESS. CALL LIGHT WITHIN REACH.
[2020-03-31] MEDS: DILTIAZEM 30 MG TAB GT SCH ×3 (04:27→20:30)
--- NOTE | 2020-03-31 05:27 | NUR ---
INCONTINENT CARE RENDERED. NO S/S ACUTE DISTRESS. CALL LIGHT WITHIN REACH.
[2020-03-31] MEDS: LEVOTHYROXINE 0.088 MG TAB GT SCH (05:34)
[2020-03-31] MEDS ORDERED: LEVOTHYROXINE 0.088 MG TAB GT SCH (06:30)
[2020-03-31 07:00] LABS: BASOPHILS % (AUTO) 0.4 % (0.0-2.0); EOSINOPHILS % (AUTO) 0.2 % (0.0-4.0); HEMATOCRIT 27.1 % (36-48); HEMOGLOBIN 8.5 g/dL (12.0-16.0); LYMPHOCYTES # (AUTO) 1.4 K/uL (2.5-16.5); LYMPHOCYTES % (AUTO) 13.3 % (20.5-51.1); MEAN CORPUSCULAR HEMOGLOBIN 25 pg (27-31); MEAN CORPUSCULAR HGB CONC 31 g/dL (33-37); MEAN CORPUSCULAR VOLUME 81.5 fL (80-94); MONOCYTES # (AUTO) 0.7 K/uL (0.8-1.0); MONOCYTES % (AUTO) 6.3 % (1.7-9.3); NEUTROPHILS # (AUTO) 8.6 K/uL (1.8-7.7); NEUTROPHILS % (AUTO) 79.8 % (42.2-75.2); PLATELET COUNT (AUTO) 154 K/uL (140-450); RED BLOOD CELL COUNT(AUTO) 3.32 MIL/uL (4.20-5.40); RED CELL DISTRIBUTION WIDTH 21.3 % (11.6-13.7); WHITE BLOOD COUNT (AUTO) 10.7 K/uL (4.8-10.8)
--- NOTE | 2020-03-31 07:04 | NUR ---
ENDORSED PATIENT TO AM SHIFT NURSE FOR CONTINUITY OF CARE.
--- NOTE | 2020-03-31 07:08 | NUR ---
RECEIVED REPORT FROM NIGHT NURSE PT IS NON RESPONSIVE TRACH TO VENT SETTING OF FIO2 40, RR 25 PEEP 5, WITH GTUBE.PATIENT RESPONSIVE ON TACTILE STIMULI, SKIN NON INTACT ON SACRAL AREA, IV SITES INTACT ON RIGHT FOREARM, ON BREATHING TREATMENT, S/P 1 UNIT PRBC ON MARCH 30, 2020. SAFETY MEASURES IN PLACE CALL LIGHT WITHIN REACH. WILL CONTINUE TO MONITOR.
[2020-03-31 07:21] LABS: ANION GAP 15.8 (8-16); CARBON DIOXIDE 20.6 mmol/L (21-32); CHLORIDE 107 mmol/L (98-107); CREATININE 1.1 mg/dL (0.6-1.3); GLUCOSE 279 mg/dL (74-106); POTASSIUM 4.4 mmol/L (3.5-5.1); SODIUM SERUM 139 mmol/L (136-145); UREA NITROGEN, BLOOD 59 mg/dL (7-18)
[2020-03-31 08:07] LABS: T4 (THYROXINE) 5.4 ug/dL (4.5-12.0)
--- NOTE | 2020-03-31 08:08 | NUR ---
PATIENT HAS BEEN SCREENED AND CATEGORIZED HIGH NUTRITION RISK. PATIENT WILL BE SEEN WITHIN 1-2 DAYS OF ADMISSION. 03/30/2020 - 03/31/2020 TAMEKA OWEN MBA, RD
[2020-03-31] MEDS ORDERED: LACTULOSE 20 GM/30 ML UDC PO SCH (09:00)
--- NOTE | 2020-03-31 09:00 | NUR ---
SPOKE TO ERIN PATIENTS TO GET UPDATES ABOUT THE CONDITION OF THE PATIENT.
[2020-03-31] MEDS: SODIUM FERRIC GLUCONATE 125 MG in NACL 0.9% 100 ML IV SCH ×2 (09:01→20:25)
[2020-03-31] MEDS: LANSOPRAZOLE 30 MG CAPDR PO SCH (09:03)
[2020-03-31] MEDS: DIGOXIN 0.125 MG TAB GT SCH (09:04)
[2020-03-31] MEDS: SENNA 8.6 MG TAB PO SCH ×2 (09:04→20:29)
--- NOTE | 2020-03-31 09:10 | NUR ---
MEDICATION DUE GIVEN AT THIS TIME CHECK VITAL SIGNS PRIOR TO MEDICATION BP 120/84 TN 48 NO RESIDUALS, SAFETY MEASURES IN PLACE AND CALL LIGHT WITHIN REACH. WILL CONTINUE TO MONITOR.
--- NOTE | 2020-03-31 12:00 | NUR ---
MEDICATION DUE GIVEN ZOSYN 50 ML INFUSING WELL.
--- NOTE | 2020-03-31 12:39 | NUR ---
DILTIAZEM NON ADMIN, HOLD PER PARAMETERS PATIENT BP 140/39 DC 50. PATIENT HEART RATES CONTINUE TO BE AT A LOW LEVEL.CALL LIGHT WITH IN REACH.
--- NOTE | 2020-03-31 12:41 | NUR ---
03/31/20 RD INITIAL ASSESSMENT COMPLETED. PLEASE REFER TO NUTRITION ASSESSMENT UNDER CARE ACTIVITY FOR ESTIMATED NUTRITIONAL NEEDS. RD RECOMMENDATIONS: 1. RECOMMEND CONTINUE NPO. 2. WHEN MEDICALLY CLEARED FOR NUTRITION SUPPORT, RECOMMEND GLUCERNA 1.2@50MLS/HR (1440KCALS,72G PROTEIN - SUFFICIENT TO MEET 100% ESTIMATED NEEDS). 3. START TF @30MLS/HR. ADVANCE, TOLERATED, BY 10MLS/HR Q8HRS TO REACH GOAL RATE. 4. F/U 2-3 DAYS; HIGH RISK TAMEKA OWEN MBA, RD
[2020-03-31] MEDS ORDERED: FUROSEMIDE 20 MG/2 ML VIAL IVP SCH (15:30)
[2020-03-31] MEDS ORDERED: MAGNESIUM CITRATE 300 ML BTL PO SCH (15:30)
--- NOTE | 2020-03-31 15:30 | NUR ---
DUKE CATHETER INSERTED PER DOCTORS ORDER. AND COLLECTED URINE FOR URINE CULTURE, COLLECTED OCCULT BLOOD SPECIMEN. SENT TO LABORATORY FOR TESTING.
[2020-03-31] MEDS: LACTULOSE 20 GM/30 ML UDC PO SCH ×2 (15:42→18:19)
--- NOTE | 2020-03-31 15:42 | NUR ---
MEDICATION DUE GIVEN CHECK VITAL SIGNS PRIOR TO MEDICATION BP 133/41 AND [place] 53.
--- NOTE | 2020-03-31 15:50 | NUR ---
ULTRASOUND OF THE ABDOMEN AT THIS TIME
--- NOTE | 2020-03-31 16:36 | NUR ---
TUBE FEEDING STARTED WITH GLUCERNA 1.2 20 ML GOAL IS 50ML/HR 100 WATERFLUSH Q4H. AND SUPPLEMENT OF PROTIN POWDER 1 PACK BID. INFUSING WELL
--- NOTE | 2020-03-31 17:00 | NUR ---
SPUTUM CULTURE, URINE CULTURE AND OCCULT BLOOD SPECIMEN COLLECTED AND SENT TO LAB.
--- NOTE | 2020-03-31 19:10 | NUR ---
ENDORSED TO NIGHT NURSE FOR CONTINUITY OF CARE. PT IS STABLE
--- NOTE | 2020-03-31 19:15 | NUR ---
RECEIVED ENDORSEMENT FROM DAY SHIFT RN, PT IS NON RESPONSIVE TRACH TO VENT SETTING ACPC FIO2 40 RATE 22 PEEP 5, WITH GTUBE.PATIENT AND CONNECT TO TUBE FEEDING GLUCERNA 1.2 AT 20L/HR, SKIN NON INTACT ON SACRAL AREA, IV SITES INTACT ON RIGHT FOREARM 24G RUNNING NS 60MLS/HR, ON BREATHING TREATMENT, PT AFEBRILE, SHOWING NO SIGNS OF ACUTE DISTRESS, SAFETY MEASURES IN PLACE CALL LIGHT WITHIN REACH. WILL CONTINUE TO MONITOR.
--- NOTE | 2020-03-31 20:24 | NUR ---
RECEIVED PT FROM DAY SHIFT ON SETTING PC 18, R 22, PEEP5, I TIME 0.65, FIO2 40%. PT TRACH WITH PORTEX 7. VENTILATOR PLUGGED TO THE RED OUTLET, BVM @ BEDSIDE, ALARMS SET AUDIBLE . PT IS IN NO RESPIRATORY DISTRESS. WILL CONTINUE TO MONITOR.
[2020-03-31] MEDS: ATORVASTATIN 20 MG TAB GT SCH (20:30)
--- NOTE | 2020-03-31 21:30 | NUR ---
ADMINISTERED 2100H MEDICATIONS PER ORDERED, PT SHOWING NO SIGNS OF ACUTE DISTRESS, SAFETY MEASURS IN PLACE, WILL CONTINUE TO MONITOR
[2020-04-01] VITALS: BP 133/91
--- NOTE | 2020-04-01 00:20 | NUR ---
PT RESTING, SHOWING NO SIGNS OF ACUTE DISTRESS, SAFETY MEASURES IN PLACE, WILL CONTINUE TO MONITOR
--- NOTE | 2020-04-01 01:55 | NUR ---
REPOSITIONED PT AND CHANGED PT LINEN, PT SHOWING NO SIGNS OF ACUTE DISTRESS, SAFETY MEASURES IN PLACE
[2020-04-01 04:00] VITALS: BP 116/53
[2020-04-01] MEDS: DILTIAZEM 30 MG TAB GT SCH ×3 (04:27→22:00)
[2020-04-01] MEDS: PIPERACILLIN/TAZOBACTAM 2.25 GM in DEXTROSE 5% 50 ML IV SCH ×3 (05:08→18:02)
[2020-04-01] MEDS: LEVOTHYROXINE 0.088 MG TAB GT SCH (05:31)
[2020-04-01 06:23] LABS: BASOPHILS % (AUTO) 0.3 % (0.0-2.0); EOSINOPHILS % (AUTO) 0.4 % (0.0-4.0); HEMATOCRIT 27.4 % (36-48); HEMOGLOBIN 8.8 g/dL (12.0-16.0); LYMPHOCYTES # (AUTO) 0.9 K/uL (2.5-16.5); LYMPHOCYTES % (AUTO) 8.4 % (20.5-51.1); MEAN CORPUSCULAR HEMOGLOBIN 26 pg (27-31); MEAN CORPUSCULAR HGB CONC 32 g/dL (33-37); MEAN CORPUSCULAR VOLUME 81.4 fL (80-94); MONOCYTES % (AUTO) 9.4 % (1.7-9.3); NEUTROPHILS # (AUTO) 8.5 K/uL (1.8-7.7); NEUTROPHILS % (AUTO) 81.5 % (42.2-75.2); PLATELET COUNT (AUTO) 155 K/uL (140-450); RED BLOOD CELL COUNT(AUTO) 3.37 MIL/uL (4.20-5.40); RED CELL DISTRIBUTION WIDTH 21.6 % (11.6-13.7); WHITE BLOOD COUNT (AUTO) 10.4 K/uL (4.8-10.8)
--- NOTE | 2020-04-01 07:00 | NUR ---
RECIVED PT ON VENT WITH SETTINGS CHARTED BREATH SOUNDS PRESENT BILT COARSE SXN PT WITH MIN TO MOD AMT OFF WHITE SECS TRACH SITE SECURE VENT PLUGGED INTO RED OUTLET AMBU BAG AT BEDSIDE WILL CONT TO JENNIFER PT ON VENT
[2020-04-01 07:09] LABS: ALBUMIN 2.6 g/dL (3.4-5.0); BILIRUBIN,DIRECT 0.3 mg/dL (0.0-0.3); TOTAL BILIRUBIN 0.5 mg/dL (0.0-1.0)
[2020-04-01 07:20] LABS: ANION GAP 16.7 (8-16); CARBON DIOXIDE 20.2 mmol/L (21-32); CHLORIDE 110 mmol/L (98-107); GLUCOSE 194 mg/dL (74-106); POTASSIUM 3.9 mmol/L (3.5-5.1); SODIUM SERUM 143 mmol/L (136-145)
--- NOTE | 2020-04-01 07:37 | NUR ---
ENDORSED TO DAY SHIFT RN FOR CONTINUITY OF CARE, PT IN STABLE CONDITION
--- NOTE | 2020-04-01 07:40 | NUR ---
REC'D BEDSIDE ENDORSEMENT FROM NIGHTSHIFT NURSE. PATIENT IS STABLE, SAFETY MEASURES IN PLACE. WILL CONT W/ CONTINUITY OF CARE.
[2020-04-01 08:00] VITALS: BP 131/59
[2020-04-01 08:08] LABS: UREA NITROGEN, BLOOD 48 mg/dL (7-18)
[2020-04-01] MEDS: DEXT 5% /NACL 0.9% 1,000 ML IV SCH (08:15)
[2020-04-01] MEDS: SODIUM FERRIC GLUCONATE 125 MG in NACL 0.9% 100 ML IV SCH ×2 (09:38→21:00)
[2020-04-01] MEDS: SENNA 8.6 MG TAB PO SCH (09:38)
[2020-04-01] MEDS: LACTULOSE 20 GM/30 ML UDC PO SCH ×4 (09:38→21:00)
[2020-04-01] MEDS: LANSOPRAZOLE 30 MG CAPDR PO SCH (09:38)
--- NOTE | 2020-04-01 10:09 | NUR ---
ADMINISTERED PRESCRIBED MEDS VIA NG TUBE PER PRESCRIBED MD ORDERS. NG TUBE RESIDUALS 60ML. PATIENT TOLERATED MEDS. EDUCATION REINFORCEMENT NEEDED. SAFETY MEASURES IN PLACE. WILL CONT TO MONITOR.
--- NOTE | 2020-04-01 11:24 | NUR ---
HOURLY ROUND PERFORMED, PATIENT IS RESTING IN BED. NO SIGNS OF DISTRESS. SAFETY MEASURES IN PLACE. WILL CONT TO MONITOR.
[2020-04-01 12:00] VITALS: BP 126/78
--- NOTE | 2020-04-01 12:39 | NUR ---
ADMINISTERED SCHED MED PRESCRIBED PER MD ORDER. PT TOLERATED WELL. MEDICATION EDUCATION PERFORMED. PT APHASIC AND UNABLE TO VERBALIZE UNDERSTANDING. SAFETY MEASURES IN PLACE WILL CONTINUE TO MONITOR
--- NOTE | 2020-04-01 12:42 | NUR ---
PRIOR TO ADMINISTERING CARDIZEM, PT BLOOD PRESSURE IS 126/78 AND HEART RATE WAS 127. ADMINISTERED SCHED CARDIZEM PRESCRIBED PER MD ORDER. RECEIVED CALL FROM [employer] THAT PT HAD EPISODE OF ASYSTOLE AND THAT THE HEART RATE SLOWLY WENT UP TO 43, 50, AND TO 58. BP IS 109/54 AND HEART RATE IS 56. DR. JIMENEZ MADE AWARE. PLACED STRIPS FOR REFERENCE IN PATIENT CHART. SAFETY MEASURES IN PLACE. WILL CONTINUE TO MONITOR
--- NOTE | 2020-04-01 14:15 | NUR ---
PT RESTING IN BED. FLACC 0. PT HAS SLIGHT WORK OF BREATHING WITHOUT ANY DESATURATIONS. SOME CLEAR SECRETIONS WERE SUCTIONED OUT. PT TOLERATED WELL. MD AWARE. SAFETY MEASURES IN PLACE. WILL CONTINUE TO MONITOR
[2020-04-01] MEDS ORDERED: METOPROLOL 5 MG/5 ML VIAL IV PRN (15:00)
[2020-04-01 16:00] VITALS: BP 141/74
--- NOTE | 2020-04-01 16:38 | NUR ---
PATIENT WAS TOILETED AND TURNED BY STARCH TREATING ASSISTANT AND RN. PATIENT HAD WATERY STOOL, SMALL-MEDIUM AMOUNT. WILL HOLD UPCOMING LACTULOSE. PATIENT TOLERATED TREATMENT WELL. SAFETY MEASURES IN PLACE. WILL CONT TO MONITOR.
--- NOTE | 2020-04-01 18:02 | NUR ---
ADMINISTERED SCHED MED PRESCRIBED PER MD ORDER. PT TOLERATED WELL. MEDICATION EDUCATION PERFORMED. PT UNABLE TO VERBALIZE UNDERSTANDING. WILL CONTINUE TO MONITOR
--- NOTE | 2020-04-01 19:37 | NUR ---
ENDORSED PATIENT TO NIGHTSHIFT NURSE. PATIENT IS STABLE.
[2020-04-01 20:00] VITALS: BP 116/54
--- NOTE | 2020-04-01 20:00 | NUR ---
RECEIVED REPORT FROM DAY SHIFT RN. PT IS APHASIC. TRACH TO VENT, FIO2: 42%, RATE: 22, PEEP: 5. LUNGS CLEAR UPON AUSCULTATION. SR/ST. S1S2 NOTED. PT HAS PERIPHERAL IV TO RT FA 24g PATENT NO INFILTRATION/PHLEBITIS NOTED, RUNNING: D5 1/2 NS @ 20 ML/HR. BS ACTIVE IN ALL 4 QUADRANTS, G-TUBE TO LT UPPER QUADRANT. CONFIRMED PLACEMENT. G-TUBE TO FEED: GLUCERNA 1.2 AT 50ML/HR. FWF: 100ML Q4HR. RESIDUAL: 15 ML. PT IS INCONTINENT. SKIN WARM AND DRY. SAFETY PRECAUTIONS IN PLACE, BED LOW AND LOCKED, SIDE RAILS UP. CALL LIGHT WITHIN REACH. WILL CONTINUE TO MONITOR. Addendum: 04/02/20 at 0146 by Sharon Cowrat RN RN PATIENT IS NOT ON D5 1/2 NS. PATIENT'S PERIPHERAL IV IS SALINE LOCK
[2020-04-01] MEDS: ATORVASTATIN 20 MG TAB GT SCH (21:00)
--- NOTE | 2020-04-01 21:45 | NUR ---
PT HAD AN EPISODE OF INCONTINENCE, LARGE/WATERY STOOL. PT CLEANED AND TURNED WITH ASSISTANCE OF VICE PRESIDENT OF HUMAN RESOURCES. NEW LINEN, GOWN, BLANKET, PILLOW CASES. PT TOLERATED WELL. SAFETY MEASURES IN PLACE, BED LOW AND LOCKED, SIDE RAILS UP, CALL LIGHT WITHIN REACH. WILL CONTINUE TO MONITOR.
[2020-04-02] VITALS: BP 115/47
--- NOTE | 2020-04-02 | NUR ---
PT IS SLEEPING, NO S/S OF DISTRESS NOTED, WILL CONTINUE TO MONITOR.
--- NOTE | 2020-04-02 02:00 | NUR ---
REPOSITIONED PATIENT. PATIENT TOLERATED IT WELL. SAFETY PRECAUTIONS IN PLACE, CALL LIGHT WITHIN REACH. WILL CONTINUE TO MONITOR.
[2020-04-02 04:00] VITALS: BP 145/55
--- NOTE | 2020-04-02 04:00 | NUR ---
SUCTIONED AND REPOSITIONED PT. PT TOLERATED PROCEDURE WELL. WILL CONTINUE TO MONITOR
[2020-04-02] MEDS: DILTIAZEM 30 MG TAB GT SCH ×3 (05:00→20:45)
[2020-04-02] MEDS: PIPERACILLIN/TAZOBACTAM 2.25 GM in DEXTROSE 5% 50 ML IV SCH ×5 (05:16→17:26)
--- NOTE | 2020-04-02 05:31 | NUR ---
SCHEDULED CARDIZEM TABLET NOT GIVEN DUE TO EPISODES OF BRADYCARDIA. WILL MONITOR PT.
[2020-04-02] MEDS: LEVOTHYROXINE 0.088 MG TAB GT SCH (05:32)
--- NOTE | 2020-04-02 06:15 | NUR ---
MORNING CARE PROVIDED. TURNED AND REPOSITIONED PT. PRESSURE AREAS OFF LOADED. POSSIBLE HEMATURIA OBSERVED FROM THE [place] BAG AND LEAKAGE OBSERVED AT THE GTU[employer] INSERTION SITE. DR. GARCÍA MADE AWARE. AWAITING RESPONSE FROM . Addendum: 04/02/20 at 0627 by Brennon Cruz RN FEEDING STOPPED DUE TO INTOLERANCE, 180 MLS RESIDUALS AND APPROXIMATELY 100MLS CAME OUT FROM THE INSERTION SITE.
[2020-04-02 06:54] LABS: BASOPHILS % (AUTO) 0.3 % (0.0-2.0); EOSINOPHILS % (AUTO) 0.5 % (0.0-4.0); HEMATOCRIT 27.5 % (36-48); HEMOGLOBIN 8.5 g/dL (12.0-16.0); LYMPHOCYTES # (AUTO) 0.8 K/uL (2.5-16.5); LYMPHOCYTES % (AUTO) 10.5 % (20.5-51.1); MEAN CORPUSCULAR HEMOGLOBIN 26 pg (27-31); MEAN CORPUSCULAR HGB CONC 31 g/dL (33-37); MONOCYTES # (AUTO) 0.7 K/uL (0.8-1.0); MONOCYTES % (AUTO) 8.8 % (1.7-9.3); NEUTROPHILS # (AUTO) 6.4 K/uL (1.8-7.7); NEUTROPHILS % (AUTO) 79.9 % (42.2-75.2); PLATELET COUNT (AUTO) 168 K/uL (140-450); RED BLOOD CELL COUNT(AUTO) 3.35 MIL/uL (4.20-5.40); RED CELL DISTRIBUTION WIDTH 21.6 % (11.6-13.7); WHITE BLOOD COUNT (AUTO) 8.1 K/uL (4.8-10.8)
[2020-04-02 07:11] LABS: ANION GAP 12.7 (8-16); CARBON DIOXIDE 24.3 mmol/L (21-32); CHLORIDE 110 mmol/L (98-107); GLUCOSE 203 mg/dL (74-106); SODIUM SERUM 143 mmol/L (136-145); UREA NITROGEN, BLOOD 39 mg/dL (7-18)
--- NOTE | 2020-04-02 07:25 | NUR ---
RECEIVED REPORT FROM COSMETICS PRESSER NURSE. PATIENT LYING DOWN IN BED. NO DISTRESS NOTED. ON TRACH TO VENT AC/PC SETTING: FIO02 30%, INSP:18, RATE:22, PEEP: 5, PMAX 40 WITH O2 SAT AT 98%. DUKE CATHETER IN PLACE, GTUBE IN PLACE. HAS SMALL SACRALCOCCYX WOUND, DRESSING DRY AND INTACT. IV SITE INTACT, PATENT, AND INFUSING IVF PER MD ORDERS. REVIEWED PLAN OF CARE WITH PATIENT. PATIENT UNABLE TO COMPREHEND. SAFETY MEASURES IN PLACE, CALL LIGHT WITHIN REACH. WILL CONTINUE TO MONITOR.
[2020-04-02 08:00] VITALS: BP 141/49
[2020-04-02] MEDS: LACTULOSE 20 GM/30 ML UDC PO SCH (09:00)
--- NOTE | 2020-04-02 09:13 | NUR ---
RECEIVED PT ON VENT WITH SETTINGS CHARTED BREATH SOUNDS PRESENT BILAT DIMINISHED SXN PT WITH MIN AMT OFF WHITE SECS TRACH SITE SECURE VENT PLUGGED INTO RED OUTLET AMBU BAG AT BEDSIDE WILL CONTINUE TO MONITOR PT ON VENT
[2020-04-02] MEDS: LANSOPRAZOLE 30 MG CAPDR PO SCH (09:28)
[2020-04-02] MEDS: SODIUM FERRIC GLUCONATE 125 MG in NACL 0.9% 100 ML IV SCH (09:29)
[2020-04-02] MEDS ORDERED: FUROSEMIDE 20 MG/2 ML VIAL IVP SCH (10:55)
[2020-04-02] MEDS ORDERED: LACTULOSE 20 GM/30 ML UDC PO SCH (11:14)
[2020-04-02 12:00] VITALS: BP 143/60
--- NOTE | 2020-04-02 12:17 | NUR ---
SCHEDULED MEDICATIONS DUE GIVEN. WILL CONTINUE TO MONITOR. CONDITION UNCHANGED.
--- NOTE | 2020-04-02 15:30 | NUR ---
PATIENT SITTING IN BED. CONDITION UNCHANGED. WILL CONTINUE TO MONITOR.
[2020-04-02 16:00] VITALS: BP 140/66
--- NOTE | 2020-04-02 17:30 | NUR ---
SCHEDULED MEDICATIONS DUE GIVEN. WILL CONTINUE TO MONITOR.
--- NOTE | 2020-04-02 19:22 | NUR ---
GAVE REPORT TO SLIDE FASTENER REPAIRER NURSE FOR CONTINUITY OF CARE. PATIENT IN STABLE CONDITION.
--- NOTE | 2020-04-02 19:35 | NUR ---
RECEIVED REPORT FROM [facility] NURSE AT PATIENTS BEDSIDE. PT TRACH TO VENT, AC PC FI02 30%, RATE 22, PEEP 5. CONNECTED TO CONTINUOUS MONITORING. PT ANOx0. OPENS EYES SPONTANEOUSLY, PERRL 3MM. CONTRACTED, UNABLE TO MOVE ALL EXTREMITIES. GTUBE IN PLACE, CONNECTED TO GLUCERNA 1.2 @ 50 ML/HR. PT INCONTINENT, MITCH PADS IN PLACE. SKIN WARM AND DRY, NOT INTACT, SMALL SACRAL WOUND. RIGHT FA 24G, SALINE LOCKED. BED LOCKED AND IN LOWEST POSITION, SIDERAILS UP, HOB 30 DEGREES. WILL CONTINUE TO MONITOR. Addendum: 04/03/20 at 0114 by Maria D Hernadez RN PT NOT CONTINENT, DUKE CATHETER IN PLACE.
[2020-04-02 20:00] VITALS: BP 133/64
[2020-04-02] MEDS: ATORVASTATIN 20 MG TAB GT SCH (20:45)
--- NOTE | 2020-04-02 21:25 | NUR ---
SCHEDULED MEDS GIVEN. HR ELEVATED IN 110's, CARDIZEM GIVEN ORDERED. GTUBE RESIDUALS LESS THAN 60ML, TOLERATING WELL. PROVIDED ORAL CARE, SMALL AMOUNT OF CREAMY SECRETIONS NOTED. TURNED AND REPOSITIONED, PILLS AND TOWEL USED TO OFFLOAD PRESSURE AREAS.
--- NOTE | 2020-04-02 23:15 | NUR ---
PT TURNED AND REPOSITIONED WITH ASSIST FROM SECURITY SCREENER, PT HAD MODERATE SIZED LIQUID BOWEL MOVEMENT. PROVIDED PERINEAL CARE, CHANGED DRESSING AT SACRUM. OFFLOADED PRESSURE SITES. SAFETY MEASURES IN PLACE.
[2020-04-03] VITALS: BP 113/63
[2020-04-03] MEDS: PIPERACILLIN/TAZOBACTAM 2.25 GM in DEXTROSE 5% 50 ML IV SCH ×4 (00:20→17:54)
--- NOTE | 2020-04-03 01:11 | NUR ---
PT MONITOR ALARMING, DESATTING TO 70's. PT HOLDING BREATH/RESISTING VENT, SUCTIONED PT AND INCREASED FI02, SUCTIONED SMALL AMOUNT OF SECRETIONS, SP02 INCREASED TO 100%. PROVIDED ORAL CARE. HOB 30 DEGREES, BED LOCKED AND IN LOWEST POSITION, SIDE RAILS UP. WILL CONTINUE TO MONITOR.
--- NOTE | 2020-04-03 03:20 | NUR ---
PT SEEN WITH EYES CLOSED. OPENS EYES WITH TOUCH. FLACC 0. VENT SETTINGS FI02 24% TITRATED DOWN BY RT, PT TOLERATING WELL. NO SIGNS OF DISTRESS. HOB 30 DEGREES, SIDE RAILS UP, PT IN STABLE CONDITION.
[2020-04-03 04:00] VITALS: BP 137/88
[2020-04-03] MEDS: DILTIAZEM 30 MG TAB GT SCH ×3 (04:19→21:39)
--- NOTE | 2020-04-03 04:45 | NUR ---
CHECKED GTUBE RESIDUALS, LESS THAN 50 ML, TOLERATING FEEDING WELL, CHANGED TUBE FEEDING LINES REPLACED FEEDINGS, ADMINISTERED PROSOURCE SUPPLEMENT ORDERED. HOB 30 DEGREES..
[2020-04-03] MEDS: LEVOTHYROXINE 0.088 MG TAB GT SCH (06:20)
--- NOTE | 2020-04-03 06:27 | NUR ---
SPONGE BATH, DUKE CARE, AND ORAL CARE PROVIDED. SOME LEAKING NOTED AT DUKE SITE, REINFLATED TUBING. SOME SLIGHT HEMATURIA NOTED AT MITCH PADS AND DUKE BAG. NO OTHER SIGNS OF ACTIVE BLEEDING. PT TOLERATED WELL. FLACC 0. GTUBE TO TUBE FEEDING ORDERED. PT IN STABLE CONDITION. WILL ENDORSE TO DAYSHIFT NURSE.
--- NOTE | 2020-04-03 07:20 | NUR ---
RECEIVED REPORT FROM EDITOR DICTIONARY NURSE. PATIENT LYING DOWN IN BED. NO DISTRESS NOTED. ON TRACH TO VENT AC/PC SETTING: FIO02 28%, INSP:18, RATE:22, PEEP: 5, PMAX 40 WITH O2 SAT AT 98%. DUKE CATHETER IN PLACE, GTUBE IN PLACE. HAS SMALL SACRALCOCCYX WOUND, DRESSING DRY AND INTACT. IV SITE INTACT, PATENT, AND INFUSING IVF PER MD ORDERS. REVIEWED PLAN OF CARE WITH PATIENT. PATIENT UNABLE TO COMPREHEND. SAFETY MEASURES IN PLACE, CALL LIGHT WITHIN REACH. WILL CONTINUE TO MONITOR.
--- NOTE | 2020-04-03 07:29 | NUR ---
RECEIVED ON A [employer] R860 VENTILATOR PLUGGED INTO RED OUTLET TOLERATING WELL WITHOUT ADVERSE REACTIONS NOTED TO A PORTEX DCT #7 AIRWAY SECURED WITH A CUCA TRACH TIE CUFF PRESSURE CHECKED NOTED AMBU BAG AT BEDSIDE STABLE NO APPARENT DISTRESS NOTED GOOD CHEST RISE DEEP TRACHEAL SUCTION FOR LARGE THICK YELLOW/GREEN SECRETINS AIRWAY PATENT
[2020-04-03 08:00] VITALS: BP 117/68
[2020-04-03 08:08] LABS: BASOPHILS % (AUTO) 0.4 % (0.0-2.0); EOSINOPHILS # (AUTO) 0.1 K/uL (0-0.4); EOSINOPHILS % (AUTO) 0.8 % (0.0-4.0); HEMATOCRIT 29.4 % (36-48); HEMOGLOBIN 9.2 g/dL (12.0-16.0); LYMPHOCYTES # (AUTO) 0.9 K/uL (2.5-16.5); LYMPHOCYTES % (AUTO) 10.7 % (20.5-51.1); MEAN CORPUSCULAR HEMOGLOBIN 26 pg (27-31); MEAN CORPUSCULAR HGB CONC 31 g/dL (33-37); MEAN CORPUSCULAR VOLUME 82.7 fL (80-94); MONOCYTES # (AUTO) 0.7 K/uL (0.8-1.0); MONOCYTES % (AUTO) 7.9 % (1.7-9.3); NEUTROPHILS # (AUTO) 7.1 K/uL (1.8-7.7); NEUTROPHILS % (AUTO) 80.2 % (42.2-75.2); PLATELET COUNT (AUTO) 184 K/uL (140-450); RED BLOOD CELL COUNT(AUTO) 3.56 MIL/uL (4.20-5.40); RED CELL DISTRIBUTION WIDTH 22.2 % (11.6-13.7); WHITE BLOOD COUNT (AUTO) 8.8 K/uL (4.8-10.8)
[2020-04-03 08:14] LABS: ANION GAP 14.6 (8-16); CARBON DIOXIDE 24.4 mmol/L (21-32); CHLORIDE 109 mmol/L (98-107); CREATININE 0.9 mg/dL (0.6-1.3); GLUCOSE 193 mg/dL (74-106); SODIUM SERUM 144 mmol/L (136-145); UREA NITROGEN, BLOOD 33 mg/dL (7-18)
[2020-04-03 08:24] LABS: MAGNESIUM 2.4 mg/dL (1.8-2.4)
[2020-04-03] MEDS: LACTULOSE 20 GM/30 ML UDC PO SCH (09:00)
[2020-04-03] MEDS: LANSOPRAZOLE 30 MG CAPDR PO SCH (09:42)
[2020-04-03] MEDS: FUROSEMIDE 40 MG/5 ML ORAL SOL UDC GT SCH (09:43)
--- NOTE | 2020-04-03 09:50 | NUR ---
GTUBE RESIDUAL CHECKED AT 170 ML. SCHEDULED MEDICATIONS DUE GIVEN. LACTULOSE NOT GIVEN AT THIS TIME D/T DIARRHEA. WILL CONTINUE TO MONITOR.
--- NOTE | 2020-04-03 09:58 | NUR ---
RESTING COMFORTABLY GOOD CHEST RISE DEEP TRACHEAL SUCTION FOR SMALL THICK YELLOW.GREEN SECRETIONS AIRWAY PATENT
--- NOTE | 2020-04-03 11:21 | NUR ---
(04/03/20) RD FOLLOW UP COMPLETED PLEASE REFER TO NUTRITION PROGRESS NOTE UNDER CARE ACTIVITY FOR ESTIMATED NUTRITION NEEDS. RD RECOMMENDATIONS: RESUME TF GLUCERNA 1.2 AT 50 ML/HR WITH FWF 100 ML Q4H WITH PROTEIN POWDER 1 PACKET BID VIA GTUBE IF/WHEN RESIDUALS DECREASE. THIS PROVIDES 1200 ML, 1440 KCAL, 72 PROTEIN, AND 966 ML FREE WATER (+600 ML FWF). PROTEIN POWDER PACKET (PROSOURCE) BID PROVIDES 80 KCAL AND 22 GM PROTEIN. TF + PROSOURCE BID PROVIDE A TOTAL OF 1520 KCAL AND 94 GM PROTEIN, WHICH MEETS 94% ESTIMATED KCAL NEEDS AND > 100% ESTIMATED PROTEIN NEEDS; ADEQUATE. F/U 2-3 DAYS; HIGH RISK SAMANTHA ALMANZA MS, RDN
--- NOTE | 2020-04-03 11:23 | NUR ---
NO APPARENT DISTRESS NOTED GOOD CHEST RISE
[2020-04-03 12:00] VITALS: BP 108/56
--- NOTE | 2020-04-03 12:34 | NUR ---
SCHEDULED MEDICATIONS DUE GIVEN. WILL CONTINUE TO MONITOR.
--- NOTE | 2020-04-03 13:05 | NUR ---
NO SOB NOTED EQUAL CHEST RISE DEEP TRACHEAL SUCTION FOR MODERATE THICK YELLOW SECRETIONS AIRWAY PATENT
--- NOTE | 2020-04-03 15:00 | NUR ---
PERFORMED ORAL CARE. CONDITION UNCHANGED. WILL CONTINUE TO MONITOR
--- NOTE | 2020-04-03 15:44 | NUR ---
RESTING WELL GOOD CHEST RISE NO DISTRESS NOTED
[2020-04-03 16:00] VITALS: BP 121/54
--- NOTE | 2020-04-03 17:54 | NUR ---
SCHEDULED MEDICATIONS DUE GIVEN. WILL CONTINUE TO MONITOR.
--- NOTE | 2020-04-03 19:05 | NUR ---
GAVE REPORT TO AUTO DESIGN CHECKER NURSE FOR CONTINUITY OF CARE. PATIENT IN STABLE CONDITION.
--- NOTE | 2020-04-03 19:15 | NUR ---
RECEIVED REPORT FROM DAY SHIFT RN, NO ACUTE DISTRESS NOTED. PT AWAKE SITTING UP IN BED, APHASIC, UNABLE TO FOLLOW COMMANDS @ THIS TIME. TRACH TO VENT PORTEX SIZE 7 AC/PC 28% FIO2, R 22 PEEP 5, DIMINISHED BREATH SOUNDS. MINIMAL SECRETIONS NOTED. AFIB ON MONITOR 70-110S IRREGULAR HR. PALPABLE PULSES TO PERIPHERAL EXTREMITIES. TRACE EDEMA NOTED. ABD SOFT NON DISTENDED, PEG TUBE IN PLACE, GLUCERNA FEEDING RUNNING, <60 ML RESIDUALS NOTED. DUKE CATH IN PLACE, TEA COLORED URINE NOTED, PATENT DRAINING TO GRAVITY. SKIN INTACT, BLANCHABLE REDNESS TO SACRAL COCCYX AREA. BED LOCKED IN LOWEST POSITION. SAFETY PRECAUTIONS IN PLACE. HOB>30 DEGREES. WILL CONTINUE TO OBSERVE.
[2020-04-03 20:00] VITALS: BP 115/57
[2020-04-03] MEDS: ATORVASTATIN 20 MG TAB GT SCH (21:41)
--- NOTE | 2020-04-03 23:45 | NUR ---
PT HAS EYES CLOSED; RESP EVEN UNLABORED @ THIS TIME. FLACC 0. NO S/S OF DISTRESS NOTED. WILL CONTINUE TO OBSERVE.
[2020-04-04] VITALS: BP 103/38
[2020-04-04] MEDS: PIPERACILLIN/TAZOBACTAM 2.25 GM in DEXTROSE 5% 50 ML IV SCH ×3 (00:46→11:56)
[2020-04-04 04:00] VITALS: BP 128/54
[2020-04-04] MEDS ORDERED: CRUSHER, PILL MC ONE (05:41)
[2020-04-04] MEDS: DILTIAZEM 30 MG TAB GT SCH ×2 (05:48→11:57)
[2020-04-04] MEDS: LEVOTHYROXINE 0.088 MG TAB GT SCH (05:48)
[2020-04-04 07:03] LABS: BASOPHILS % (AUTO) 0.5 % (0.0-2.0); EOSINOPHILS # (AUTO) 0.1 K/uL (0-0.4); EOSINOPHILS % (AUTO) 1.3 % (0.0-4.0); HEMATOCRIT 28.5 % (36-48); LYMPHOCYTES % (AUTO) 11.5 % (20.5-51.1); MEAN CORPUSCULAR HEMOGLOBIN 27 pg (27-31); MEAN CORPUSCULAR HGB CONC 32 g/dL (33-37); MEAN CORPUSCULAR VOLUME 84.1 fL (80-94); MONOCYTES # (AUTO) 0.7 K/uL (0.8-1.0); MONOCYTES % (AUTO) 7.5 % (1.7-9.3); NEUTROPHILS % (AUTO) 79.2 % (42.2-75.2); PLATELET COUNT (AUTO) 160 K/uL (140-450); RED BLOOD CELL COUNT(AUTO) 3.39 MIL/uL (4.20-5.40); RED CELL DISTRIBUTION WIDTH 22.3 % (11.6-13.7); WHITE BLOOD COUNT (AUTO) 8.8 K/uL (4.8-10.8)
--- NOTE | 2020-04-04 07:25 | NUR ---
RECEIVED REPORT FROM CYBER SECURITY SPECIALIST NURSE. PATIENT LYING DOWN IN BED. NO DISTRESS NOTED. ON TRACH TO VENT AC/PC SETTING: FIO02 28%, INSP:18, RATE:22, PEEP: 5, PMAX 40 WITH O2 SAT AT 98%. DUKE CATHETER IN PLACE, GTUBE IN PLACE. HAS SMALL SACRALCOCCYX WOUND, DRESSING DRY AND INTACT. IV SITE INTACT, PATENT, AND INFUSING IVF PER MD ORDERS. REVIEWED PLAN OF CARE WITH PATIENT. PATIENT UNABLE TO COMPREHEND. SAFETY MEASURES IN PLACE, CALL LIGHT WITHIN REACH. WILL CONTINUE TO MONITOR.
[2020-04-04 08:00] VITALS: BP 111/68
[2020-04-04 08:22] LABS: ANION GAP 14.7 (8-16); CARBON DIOXIDE 23.4 mmol/L (21-32); CHLORIDE 109 mmol/L (98-107); CREATININE 0.9 mg/dL (0.6-1.3); GLUCOSE 214 mg/dL (74-106); POTASSIUM 4.1 mmol/L (3.5-5.1); SODIUM SERUM 143 mmol/L (136-145); UREA NITROGEN, BLOOD 36 mg/dL (7-18)
[2020-04-04] MEDS: FUROSEMIDE 40 MG/5 ML ORAL SOL UDC GT SCH (08:45)
[2020-04-04] MEDS: LANSOPRAZOLE 30 MG CAPDR PO SCH (08:46)
[2020-04-04] MEDS: LACTULOSE 20 GM/30 ML UDC PO SCH (08:46)
--- NOTE | 2020-04-04 08:47 | NUR ---
SCHEDULED MEDICATIONS DUE GIVEN. WILL CONTINUE TO MONITOR.
--- NOTE | 2020-04-04 08:50 | NUR ---
GTUBE RESIDUAL CHECKED AT 100 ML. WILL CONTINUE TO MONITOR.
[2020-04-04] MEDS ORDERED: PIPE50SO5 IV (08:58)
[2020-04-04] MEDS ORDERED: FURO40SO GT (08:58)
[2020-04-04] MEDS ORDERED: LEVO0.087 GT (08:58)
[2020-04-04] MEDS ORDERED: LANS30EC68 PO (08:58)
[2020-04-04 09:23] LABS: MAGNESIUM 2.1 mg/dL (1.8-2.4); PHOSPHORUS 2.6 mg/dL (2.5-4.9)
[2020-04-04 12:00] VITALS: BP 125/72
--- NOTE | 2020-04-04 14:14 | NUR ---
STABLE RESTING WELL [employer] COMMISSIONER APPARENT SOB NOTED DEEP TRACHEAL SUCTION FOR ;TASH RAM YELLOW SECRETIONS AIRWAY PATENT
--- NOTE | 2020-04-04 14:43 | NUR ---
[place] [facility] [place] GAVE [place]PORT TO DILAN DE LEON. ANSWERED ALL HER QUESTIONS REGARDING TRANSFER AND NEW/CHANGED MEDICATIONS REGIMEN. NOTIFIED HER OF PICKUP TIME OF 1545 BY [facility]. RN VERBALIZED UNDERSTANDING AND TO AWAIT FOR PATIENT'S ARRIVAL. DISCHARGE INSTRUCTIONS PROVIDED TO PATIENT. UNABLE TO COMPREHEND. CALLED PATIENT'S , ERIN METCALF, AND NOTIFIED HIM OF PATIENT'S TRANSFER BACK TO [facility] [place]. ERIN VERBALIZED UNDERSTANDING.
--- NOTE | 2020-04-04 15:50 | NUR ---
[facility] ON UNIT TO TAKE PATIENT TO [facility]. PATIENT TRANSFERRED AT THIS TIME TO [facility] IN STABLE CONDITION VIA [facility].
== END 2020-04-04 15:55 | DRG 870 ==
LOC: MED 21:20 → MTU 03-30 00:22
PROVIDERS: ADMIT Family Medicine; ATTEND Family Medicine
PROC: 5A1955Z Respiratory Ventilation, Greater than 96 Consecutive Hours (ICD-10-PCS; principal; 2020-03-30)
PROC: 30233N1 Transfusion of Nonautologous Red Blood Cells into Peripheral Vein, Percutaneous Approach (ICD-10-PCS; 2020-03-30)
DX: A41.9 Sepsis, unspecified organism (principal); N17.0 Acute kidney failure with tubular necrosis; E43 Unspecified severe protein-calorie malnutrition; G93.41 Metabolic encephalopathy; J15.6 Pneumonia due to other Gram-negative bacteria; K85.90 Acute pancreatitis without necrosis or infection, unspecified; Z99.11 Dependence on respirator [ventilator] status; R18.8 Other ascites; J96.10 Chronic respiratory failure, unspecified whether with hypoxia or hypercapnia; K92.2 Gastrointestinal hemorrhage, unspecified; J91.8 Pleural effusion in other conditions classified elsewhere; G93.1 Anoxic brain damage, not elsewhere classified; J44.0 Chronic obstructive pulmonary disease with (acute) lower respiratory infection; E87.5 Hyperkalemia; D50.9 Iron deficiency anemia, unspecified; R74.8 Abnormal levels of other serum enzymes; Z20.828 Contact with and (suspected) exposure to other viral communicable diseases; K21.9 Gastro-esophageal reflux disease without esophagitis; E86.0 Dehydration; D64.9 Anemia, unspecified; F03.90 Unspecified dementia, unspecified severity, without behavioral disturbance, psychotic disturbance, mood disturbance, and anxiety; I11.0 Hypertensive heart disease with heart failure; R14.0 Abdominal distension (gaseous); K81.9 Cholecystitis, unspecified; R16.1 Splenomegaly, not elsewhere classified; R73.9 Hyperglycemia, unspecified; R13.10 Dysphagia, unspecified; I48.0 Paroxysmal atrial fibrillation; E03.9 Hypothyroidism, unspecified; R00.1 Bradycardia, unspecified; Z68.31 Body mass index [BMI] 31.0-31.9, adult; Z79.899 Other long term (current) drug therapy; Z88.0 Allergy status to penicillin; Z88.2 Allergy status to sulfonamides; Z88.8 Allergy status to other drugs, medicaments and biological substances; Z79.01 Long term (current) use of anticoagulants; Z87.820 Personal history of traumatic brain injury; Z93.0 Tracheostomy status; Z93.1 Gastrostomy status; Z83.3 Family history of diabetes mellitus
CPT/HCPCS: 36415; 36430; 71045; 76700; 80048; 80053; 80076; 80162; 80305; 81001; 82150; 82272; 83036; 83690; 83735; 83880; 84100; 84436; 84439; 84443; 84479; 84484; 85025; 85610; 85730; 86886; 86900; 86901; 86920; 87040; 87070; 87081; 87086; 87205; 93005; 94003; 99291; J1940; J2543; J2916; J3490; J7060; P9016